=== PATIENT | female | born 1950 | race Caucasian/White ===

== ENCOUNTER 2020-08-26 13:20 | Outpatient (REF) | payer MEDICARE, SELFPAY ==
[2020-08-26 15:38] LABS: Anion Gap 13 (12-20); Blood Urea Nitrogen 24 mg/dL (9-16); Calcium 9.4 mg/dL (8.4-10.2); Carbon Dioxide 33 mmol/L (22-29); Chloride 100 mmol/L (96-108); Estimated Glomerular Filt Rate 45; Glucose Random 95 mg/dL (60-115); Potassium 4.8 mmol/l (3.3-5.1); Sodium 141 mmol/L (135-145)
[2020-08-26 15:49] LABS: B Type Natriuretic Peptide 208 pg/mL (<100)
== END 2020-08-26 13:21 | disposition home or self-care (01) ==
LOC: HO.LAB 13:20
PROVIDERS: PCP Internal Medicine; Visit Provider Internal Medicine
DX: I50.32 Chronic diastolic (congestive) heart failure (principal)
CPT/HCPCS: 80048; 83880

== ENCOUNTER → 2021-02-08 08:29 | Outpatient (BNVA) | payer MEDICARE, SELFPAY | PROVIDERS: PCP Internal Medicine; Visit Provider Internal Medicine | DX: I11.0 Hypertensive heart disease with heart failure (principal); I50.32 Chronic diastolic (congestive) heart failure; I35.0 Nonrheumatic aortic (valve) stenosis | CPT/HCPCS: 99212 ==

== ENCOUNTER → 2021-08-02 08:27 | Outpatient (REF) | payer MEDICARE, SELFPAY ==
--- NOTE | 2021-08-02 08:30 | CA_ITS ---
Transthoracic Echocardiogram Patient (Last, First, Middle): Shruthi Ch, Gender: Female Date of : 1950 Age: 71 Procedure Date: 08/02/2021 Procedure Type: Transthoracic Echocardiogram Location: OP Height: 154.94 cm Weight: 81.19 kg BSA: 1.80 m2 Heart Rate: bpm BP: 116 / 56 mmHg Chemical Operations Specialist: Referring MD: Geovany Dong MD Rn Postpartum: Clark Mc MD Symptoms: I35.0 - Nonrheumatic aortic (valve) stenosis Study Quality: Fair ECG Rhythm: Sinus Conclusions: - 1. Normal LV systolic function with impaired relaxation filling pattern 2. Moderate aortic stenosis 3. Normal RV systolic pressure 4. No gross pericardial effusion Findings Left Ventricle Normal left ventricular size, thickness, and systolic function. The visually estimated ejection fraction is between 60-65%. Spectral Doppler is indicative of an impaired relaxation filling pattern. E/E prime ratio is between 8 and 15 consistent with indeterminate filling pressures. Measured peak global endocardial longitudinal strain is-23.9%, within normal limits Right Ventricle Normal right ventricular cavity size and systolic function. Atria The left atrium is mildly dilated. The right atrium is normal in size. Aortic Valve The aortic valve was not well visualized. There is mild calcification of the aortic valve. There is mild thickening of the aortic valve. There is moderate aortic valve stenosis. The peak aortic gradient is 35 mmHg.The mean gradient is 18 mmHg. There is no aortic valve regurgitation. Mitral Valve There is mild posterior mitral leaflet thickening. There is mild mitral annular calcification. There is trace mitral valve regurgitation. There is no mitral valve stenosis. Pulmonic Valve The pulmonic valve was not well visualized. Tricuspid Valve The right ventricular systolic pressure is 26 mmHg. Normal right atrial pressure. There is no evidence of pulmonary hypertension. Great Vessels All visible segments of the aorta are normal in size. The pulmonary artery was not well visualized. Venous The inferior vena cava is normal in size and collapses greater than 50% with inspiration. Pericardium/Pleural There is no evidence of pericardial effusion. Prior Study Comparison No significant change compared to prior study. Measurements 2D Linear Measurements IVSd: 1.03 0.6-0.9/0.6-1.0 cm LVIDd: 4.39 3.9-5.3/4.2-5.9 cm LVIDd Index: 2.44 2.4-3.2/2.2-3.1 cm/m2 LVIDs: 3.11 2.0-3.6 cm LVPWd: 1.08 0.7-1.1 cm Ao Root: 2.90 2.1-3.5 cm LA Diam: 4.20 2.7-3.8/3.0-4.0 cm LAIDs Index: 2.33 1.5-2.3 cm/m2 LV Mass: 197.62 67-162/88-224 g LV Mass Index: 109.79 43-95/49-115 g/m2 LVOT Diam: 2.00 3.0+(-)1.3 cm Mitral Valve MV Pk E: 0.78 MV PK A: 0.90 MV Decel Time: 249.00 E/A: 0.90 E'Lateral: 9.90 E'Medial: 5.44 E/E' Med: 14.30 E/E' Lat: 7.90 PHT: 73.00 MVA PHT: 3.01 Decel [place]: 3.13 Aortic Valve AoV Pk Yasmany: 2.94 AoV Mn Yasmany: 1.92 AoV VTI: 0.82 AoV Pk Grad: 35.00 Aov Mn Grad: 18.00 JERAMIE Cont.VTI: 1.16 LVOT LVOT Pk Yasmany: 1.06 LVOT Mn Yasmany: 0.66 LVOT VTI: 0.30 LVOT Pk Grad: 4.00 LVOT Mn Grad: 2.00 LVOT Diam: 2.00 LVOT Area: 3.14 Diastolic Function MV Pk E: 0.78 MV Pk A: 0.90 E/A: 0.90 E'Medial: 5.44 E/E' Med: 14.30 E' Laterial: 9.90 E/E' Lat: 7.90 Tricuspid Valve TR Pk Yasmany: 2.42 TR Pk Grad: 23.00 RA Press: 3.00 RVSP: 26.00 Great Vessels Aorta Ao Root-2D: 2.90 2.0-3.7 cm Ao Asc: 3.00 2.1-3.4 cm Pulmonary Valve PV Pk Yasmany: 1.08 Peak PV Grad: 5.00 Updated in Other Vendor System with Status of Final Clark Mc MD electronically signed on 08/02/2021 4:27:00 PM with status of Final
== END ==
LOC: HO.CARD 08:27
PROVIDERS: PCP Internal Medicine; Visit Provider Internal Medicine
DX: I35.0 Nonrheumatic aortic (valve) stenosis (principal)
CPT/HCPCS: 93306

== ENCOUNTER 2021-08-16 09:37 | Outpatient (REF) | payer MEDICARE, SELFPAY ==
[2021-08-16 10:58] LABS: Anion Gap 12 (12-20); Blood Urea Nitrogen 19 mg/dL (9-16); Calcium 9.6 mg/dL (8.4-10.2); Carbon Dioxide 28 mmol/L (22-29); Chloride 106 mmol/L (96-108); Estimated Glomerular Filt Rate 51; Glucose Fasting 112 mg/dL (60-99); Potassium 5.3 mmol/L (3.3-5.1); Sodium 141 mmol/L (135-145)
[2021-08-16 11:04] LABS: B Type Natriuretic Peptide 265 pg/mL (<100)
== END 2021-08-16 09:38 | disposition home or self-care (01) ==
LOC: HO.LAB 09:37
PROVIDERS: Visit Provider Internal Medicine
DX: I50.32 Chronic diastolic (congestive) heart failure (principal)
CPT/HCPCS: 36415; 80048; 83880

== ENCOUNTER → 2021-08-17 08:11 | Outpatient (BNVA) | payer MEDICARE, SELFPAY | PROVIDERS: PCP Internal Medicine; Referring Provider Internal Medicine; Visit Provider Internal Medicine | DX: I11.0 Hypertensive heart disease with heart failure (principal); I50.32 Chronic diastolic (congestive) heart failure; I35.0 Nonrheumatic aortic (valve) stenosis; E87.5 Hyperkalemia | CPT/HCPCS: 93005; 99212 ==

== ENCOUNTER → 2022-02-03 13:32 | Outpatient (BNVA) | payer MEDICARE, SELFPAY | PROVIDERS: PCP Internal Medicine; Referring Provider Internal Medicine; Visit Provider Internal Medicine | DX: I11.0 Hypertensive heart disease with heart failure (principal); I50.32 Chronic diastolic (congestive) heart failure; I35.0 Nonrheumatic aortic (valve) stenosis | CPT/HCPCS: 99212 ==

== ENCOUNTER → 2022-03-11 08:36 | Outpatient (REF) | payer MEDICARE, SELFPAY ==
--- NOTE | ~2022-03-11 | NM_ITS ---
Lexiscan Myocardial perfusion study Indication: Diastolic congestive heart failure, assess for coronary disease and ischemia Technique: The patient was brought in for a Lexiscan perfusion study on 03/11/2022 and was injected 0.4 mg of Lexiscan intravenously. Within a minute of this injection 30 mCi of sestamibi was given intravenously. Images were obtained using the SPECT gamma camera interlaced with the gating device. Images were obtained in supine position. Resting perfusion study was performed on 03/14/2022. Patient was administered 30 mCi of sestamibi intravenously at rest. Images were then obtained in supine position. Total DLP 110mGy-cm. Images were processed with the software and compared side to side in short axis, horizontal long axis and vertical long axis views. Findings: Raw acquisition reviewed. The stress perfusion study showed no significant perfusion abnormality. Both uncorrected as well as CT attenuation corrected images were reviewed. The gated study shows normal LV systolic function with calculated LVEF of 71%. LV cavity is normal in size. The gated study shows normal wall thickening and contraction of segments. Resting study shows no significant perfusion abnormality. Gating at rest reveals normal wall motion with ejection fraction at 69%. The findings are consistent with no reversible or fixed perfusion abnormality. NM/NM cardiolite stress test Impression: 1. Myocardial perfusion imaging study shows normal myocardial perfusion. 2. Gated LVEF is 71% during stress and 69% during rest. 3. Transient ischemic dilatation not present. EKG component of the test reported separately.
--- NOTE | 2022-03-11 08:39 | CA_ITS ---
Acquisition Time: 2022-03-11 09:38:22 Total Exercise Time: 00:02:00 Test Indications: SOB Medications: SEE CHART Protocol: LEXISCAN Max HR: 080 BPM 54% of Pred: 148 BPM Max BP: 164/084 mmHG Max Work Load: 1.6 METS Pharmacological stress test with Lexiscan injection, while walking slow on treadmill, without anginal symptoms, without arrythmia, with normotensive response to injection, with nondiagnostic EKG for ischemia. Nuclear images pending. Test reviewed with Dr Dong Referred By: Geovany Dong Overread By: BIANCA LIPSCOMB
--- NOTE | 2022-03-11 08:39 | CA_ITS ---
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 The visually estimated ejection fraction is between 65-70%. - Evidence suggests grade II (moderate) diastolic dysfunction. - There is moderate aortic valve stenosis. Findings Left Ventricle Normal left ventricular cavity size. There is mildly increased left ventricular wall thickness. The left ventricular systolic function is normal. The visually estimated ejection fraction is between 65-70%. E/E prime ratio is between 8 and 15 consistent with indeterminate filling pressures. Evidence suggests grade II (moderate) diastolic dysfunction. Right Ventricle Normal right ventricular cavity size and systolic function. Atria Both atria are normal in size. Aortic Valve The aortic valve was not well visualized. There is moderate calcification of the aortic valve. There is moderate aortic valve stenosis. The mean gradient is 17 mmHg. The aortic valve area is 1.31 cm2. There is no aortic valve regurgitation. Dimensionless index 0.38. Stroke volume index 57ml/m2. Mitral Valve The mitral valve appears normal. There is trace mitral valve regurgitation. There is no mitral valve stenosis. Pulmonic Valve The pulmonic valve is likely normal. Tricuspid Valve There is mild tricuspid valve regurgitation. The pulmonary artery systolic pressure is normal. Great Vessels The aortic annulus, sinuses of valsalva, and asc aorta are normal in size. Venous The inferior vena cava is normal in size and collapses greater than 50% with inspiration. Pericardium/Pleural There is no evidence of pericardial effusion. Prior Study Comparison No significant change compared to prior study dated: 08/02/2021. Measurements 2D Linear Measurements IVSd: 1.19 0.6-0.9/0.6-1.0 cm LVIDd: 3.91 3.9-5.3/4.2-5.9 cm LVIDd Index: 2.16 2.4-3.2/2.2-3.1 cm/m2 LVIDs: 2.59 2.0-3.6 cm LVPWd: 1.24 0.7-1.1 cm LA Diam: 4.30 2.7-3.8/3.0-4.0 cm LAIDs Index: 2.38 1.5-2.3 cm/m2 LV Mass: 202.87 67-162/88-224 g LV Mass Index: 112.08 43-95/49-115 g/m2 LVOT Diam: 2.10 3.0+(-)1.3 cm 2D Systolic Function EF 4C: 70.80 >55% EF 2C: 77.30 >55% EF BiP: 74.60 >55% Mitral Valve MV Pk E: 0.87 MV PK A: 0.83 MV Decel Time: 244.00 E/A: 1.10 E'Lateral: 9.03 E'Medial: 5.98 E/E' Med: 14.50 E/E' Lat: 9.60 PHT: 71.00 MVA PHT: 3.10 Decel [place]: 3.56 Aortic Valve AoV Pk Yasmany: 2.75 AoV Mn Yasmany: 1.94 AoV VTI: 0.78 AoV Pk Grad: 30.00 Aov Mn Grad: 17.00 JERAMIE Cont.VTI: 1.31 LVOT LVOT Pk Yasmany: 1.04 LVOT Mn Yasmany: 0.67 LVOT VTI: 0.30 LVOT Pk Grad: 4.00 LVOT Mn Grad: 2.00 LVOT Diam: 2.10 LVOT Area: 3.46 Diastolic Function MV Pk E: 0.87 MV Pk A: 0.83 E/A: 1.10 E'Medial: 5.98 E/E' Med: 14.50 E' Laterial: 9.03 E/E' Lat: 9.60 Right Ventricle TAPSE (mm): 1.99 TVS' Yasmany: 11.30 Tricuspid Valve TR Pk Yasmany: 2.57 TR Pk Grad: 26.00 RA Press: 3.00 RVSP: 29.00 Great Vessels Aorta Sinus of Valsalva: 2.89 2.0-3.5 cm Ao Asc: 2.80 2.1-3.4 cm Updated in Other Vendor System with Status of Final Geovany Dong MD electronically signed on 03/12/2022 11:26:38 AM with status of Final
== END ==
LOC: HO.CARD 08:36
PROVIDERS: Visit Provider Internal Medicine
DX: I35.0 Nonrheumatic aortic (valve) stenosis (principal); I50.32 Chronic diastolic (congestive) heart failure
CPT/HCPCS: 78452; 93017; 93306; A9500; J0280; J2785

== ENCOUNTER → 2022-03-28 09:50 | Outpatient (REF) | payer MEDICARE, SELFPAY | LOC: HO.SL 09:50 | PROVIDERS: Visit Provider Internal Medicine | DX: G47.33 Obstructive sleep apnea (adult) (pediatric) (principal); I50.32 Chronic diastolic (congestive) heart failure | CPT/HCPCS: 95806 ==

== ENCOUNTER → 2022-04-25 08:14 | Outpatient (BNVA) | payer MEDICARE, SELFPAY | PROVIDERS: PCP Internal Medicine; Referring Provider Internal Medicine; Visit Provider Internal Medicine | DX: I11.0 Hypertensive heart disease with heart failure (principal); I50.32 Chronic diastolic (congestive) heart failure; I35.0 Nonrheumatic aortic (valve) stenosis | CPT/HCPCS: 99212 ==

== ENCOUNTER 2023-02-18 15:35 | Emergency (ER) | payer MEDICARE, SELFPAY ==
--- NOTE | ~2023-02-18 | XR_ITS ---
EXAMINATION: XR LUMBOSACRAL SPINE CLINICAL INFORMATION: Pain. COMPARISON: CTA chest 07/27/2019. Radiograph lumbar spine 12/16/2009. TECHNIQUE: Three views of the lumbosacral spine. FINDINGS: Increased sclerosis with equivocal mild compression deformity involving the superior endplate of L2, new compared to priors from 2018 and 2009. No evidence of traumatic subluxation. Moderate to severe intervertebral disc height loss from T11 through L2. Moderate to severe facet arthropathy at L5-S1 leading to some degree of neural foraminal encroachment and central canal stenosis. SI joints are symmetric. Scattered atherosclerotic disease of the abdominal aorta, otherwise no significant soft tissue abnormality. XR/XR lumbar spine 2-3V IMPRESSION: 1. Equivocal mild compression deformity of the superior endplate of L2, new compared to 2019. Correlation for point tenderness is recommended. 2. Moderate to severe lumbar spondylosis more significant in the lower thoracic spine and lower lumbar spine. If clinically deemed appropriate for evaluation of central canal stenosis, nerve root impingement and disc pathology, correlation with an MRI could be obtained.
--- NOTE | ~2023-02-18 | XR_ITS ---
EXAMINATION: XR HIP, LEFT CLINICAL INFORMATION: Pain. COMPARISON: None available. TECHNIQUE: Two views of the left hip. FINDINGS: No acute fractures or subluxation. 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 SI joints are symmetric. Pubic symphysis is maintained. No significant soft tissue abnormality. XR/XR hip LT w PEL1V IMPRESSION: No acute fractures or subluxation. 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
[2023-02-18 15:44] VITALS: BP 136/82; BP 154/52; PULSE 64; PULSE 68; RESP 18; TEMP 36.8; O2SAT 100; O2SAT 98; BMI 32.0
[2023-02-18 16:14] LABS: MANUAL DIFF FLAG NO
[2023-02-18 16:16] LABS: Basophils Percent Auto 0.3 % (0-2); Eosinophils Absolute Auto 0.2 X10*3/uL (0.0-0.4); Eosinophils Percent Auto 1.5 % (0-4); Hematocrit 43.8 % (37.0-47.0); Hemoglobin 14.7 g/dl (12.0-16.0); Imm Gran Abs Auto 0.03 X10*3/uL (0.00-0.03); Imm Gran Pct Auto 0.3 % (0.0-0.4); Lymphocytes Absolute Auto 2.7 X10*3/uL (1.2-4.9); Mean Corpuscular HGB Conc 33.6 g/dl (31.0-35.0); Mean Corpuscular Hemoglobin 28.3 pg (27.0-33.0); Mean Corpuscular Volume 84.2 fL (80.0-98.0); Mean Platelet Volume 7.9 fL (9.4-12.3); Monocytes Absolute Auto 0.7 X10*3/uL (0.1-1.2); Monocytes Percent Auto 7.4 % (2-11); Neutrophils Absolute Auto 6.3 x10*3/uL (2.0-8.3); Neutrophils Percent Auto 63.5 % (45-73); Platelet Count 270 X10*3/uL (160-400); Red Cell Distribution Width 13.8 % (11.0-16.0); White Blood Count 9.9 X10*3/uL (4.8-10.8)
[2023-02-18 16:34] LABS: Alanine Aminotransferase 24 U/L (0-31); Albumin Level 4.4 g/dL (3.5-5.0); Alkaline Phosphatase 136 U/L (39-117); Anion Gap 18 (12-20); Aspartate Amino Transferase 27 U/L (5-31); Bilirubin Total 1.8 mg/dL (0.0-1.0); Blood Urea Nitrogen 13 mg/dL (9-16); Calcium 9.8 mg/dL (8.4-10.2); Carbon Dioxide 24 mmol/L (22-29); Chloride 102 mmol/L (96-108); Creatinine Clr Calc Pharmacy 49.8; Estimated Glomerular Filt Rate 56; Glucose Random 116 mg/dL (60-115); Magnesium 2.3 mg/dL (1.6-2.6); Potassium 4.3 mmol/L (3.3-5.1); Sodium 140 mmol/L (135-145); Total Protein 6.9 g/dL (6.5-8.0)
[2023-02-18 16:44] VITALS: RESP 18
[2023-02-18] MEDS: Ondansetron ODT 4 MG TAB.RAPDIS TRANSLINGU (16:44)
[2023-02-18] MEDS: Morphine Sulfate 4 MG/ML CARTRIDGE IM (16:44)
--- NOTE | 2023-02-18 16:52 | ED.GENADULT ---
HPI - General Adult General Chief complaint: Back Pain/Injury Stated complaint: BACK PAIN X2 DAY,UNABLE TO AMB,NO INJ PER EMS Time Seen by Provider: 02/18/23 16:09 Source: patient, family (daughter) and old records reviewed Mode of arrival: EMS Limitations: no limitations History of Present Illness HPI narrative: 72-year-old female with past medical history significant for hypertension, congestive heart failure, hyperkalemia presents for evaluation of left lower back pain and hip pain. Patient denies any specific injury or falls. She reports that 2 days ago she initially had left lower back pain that was mild and worse with movement. Today, about 2 hours prior to arrival her pain got much more severe and she has been unable to bear weight on her left side due to the pain. She states the pain is just above her left buttocks and in her left hip that radiates down her left leg Denies any numbness, tingling She has taken ibuprofen without any significant improvement in her symptoms Denies any history of back surgeries No other complaints or concerns at this time Related Data Home Medications Medication Instructions Recorded Confirmed amlodipine 10 mg tablet 10 mg PO DAILY 02/08/21 04/25/22 atenolol 50 mg tablet 50 mg PO DAILY 02/08/21 04/25/22 atorvastatin 20 mg tablet 20 mg PO DAILY 02/08/21 04/25/22 benazepril 40 mg tablet 40 mg PO DAILY 02/08/21 04/25/22 fluoxetine 20 mg capsule 20 mg PO DAILY 02/08/21 04/25/22 gabapentin 300 mg capsule 300 mg PO BID 02/08/21 04/25/22 levothyroxine 100 mcg tablet 100 mcg PO DAILY 02/08/21 04/25/22 Previous Rx's Medication Instructions Recorded furosemide 20 mg tablet 10 mg PO QAM #30 tabs 08/18/22 Allergies Allergy/AdvReac Type Severity Reaction Status Date / Time No Known Allergies Allergy Verified 02/18/23 15:48 [No Known Allergies*] Review of Systems Constitutional: Constitutional: Reports as per HPI, Denies chills, Denies fatigue, Denies fever(s) and Denies headache(s) ENT: Denies headache(s) Cardiovascular: Cardiovascular: Denies chest pain and Denies dyspnea Respiratory: Respiratory: Denies cough and Denies dyspnea Gastrointestinal: Gastrointestinal: Denies abdominal pain, Denies constipation and Denies vomiting Genitourinary: Genitourinary: Denies dysuria Musculoskeletal: Musculoskeletal: Reports back pain and Denies tingling Neurologic: Denies headache(s), Denies focal weakness, Reports radicular pain, Denies tingling and Denies paresthesias Endocrine: Endocrine: Denies fatigue PMFSH Past Medical History Medical History Chronic diastolic (congestive) heart failure Essential hypertension Non-rheumatic aortic stenosis Surgical History History of breast biopsy History of hysterectomy Family History Family History Father Dementia Mother Hypertension Alzheimer disease Social History Social History Alcohol intake: never Patient Tobacco Use Status: Former Tobacco user Quit Date: 20+ yrs ago Use of substances other than those prescribed or required for medical reasons: No Advance Directives: No Advance Directives Information Provided: No Physical Exam ED Vital Signs: Vital Signs - 24 hr 02/18/23 15:44 02/18/23 16:44 02/18/23 19:16 Temperature 98.2 F 97.9 F Pulse Rate 68 68 Respiratory Rate 18 18 18 Blood Pressure 154/52 H 145/65 H Pulse Oximetry 98 93 Oxygen Delivery Method Room Air Room Air BMI result Body Mass Index 32.0 Const General: healthy appearing, comfortable, no acute distress, alert and awake Nutritional Appearance: well nourished Orientation/consciousness: patient oriented x3 HENMT Head: Yes normocephalic and Yes atraumatic Throat: Yes posterior oropharynx normal Eyes Eyelids: Yes eyelids normal Conjunctivae: conjunctivae normal Sclerae: sclerae normal Corneas: corneas normal Pupils: Equal, round and reactive pupils present EOM: EOMs intact bilaterally Neck Neck: Yes full ROM Resp Effort & Inspection: normal respiratory effort, able to speak in complete sentences, no audible wheezes and not labored Auscultation: clear to auscultation bilaterally Cardio Rate: regular rate Rhythm: regular rhythm GI Inspection: No distended Palpation (GI): Soft to palpation, not firm, nontender, no guarding and not rigid Auscultation: normoactive bowel sounds Back/Spine/Pelvis Other: Normal inspection to the back and spine, Tenderness in the left lumbar sacral region, tenderness to the left hip. Straight leg raise positive on the left. No palpable deformities. Skin General skin exam: no rashes or lesions noted and elasticity normal Neuro General: patient oriented x3 Cranial nerves: Yes CN's II-XII intact bilaterally, Yes Equal, round and reactive pupils present and Yes Bilaterally intact EOM present Cognition (Neuro): normal cognition Extrem Other: Moving all extremities well without any obvious deformities. The left lower extremity edema Course Reevaluation(s) Reevaluation #1: Patient states fell significantly better after receiving the morphine injection. Item the help set the patient up and see if she can ambulate and she again had severe pain radiating down her left leg. Patient's x-ray shows moderate to severe spondylosis and ane age-indeterminate compression deformity of L2. On further history, the patient admits that she did have a fall about 1 month ago which was likely the cause of the compression deformity. This was discussed with the patient and daughter at bedside. The patient's symptoms are most consistent with lumbar radiculopathy. However given that she cannot ambulate due to her pain, the patient will stay in the hospital tonight for case management and physical therapy evaluation in the morning. Time: 17:44 Medications Administered Discontinued Medications Generic Name Dose Route Start Last Admin Trade Name Pedroq PRN Reason Stop Dose Admin Dexamethasone 4 mg 02/18/23 17:43 02/18/23 17:50 Dexamethasone 4 Mg Tablet PO 02/18/23 17:44 4 mg ONCE ONE Administration Morphine Sulfate 4 mg 02/18/23 16:36 02/18/23 16:44 Morphine Sulfate 4 Mg/Ml Cartridge IM 02/18/23 16:37 4 mg ONCE ONE Administration Protocol Ondansetron HCl 4 mg 02/18/23 16:36 02/18/23 16:44 Ondansetron Odt 4 Mg Tab.Rapdis TRANSLINGU 02/18/23 16:37 4 mg ONCE ONE Administration Medical Decision Making Medical Decision Making MDM Narrative: 72-year-old female presents for evaluation of left lower back and hip pain. By exam her symptoms are most consistent with radiculopathy/sciatica. There are no warning signs or symptoms of cauda equina syndrome. Will check basic labs and a UA. Will get an x-ray of the left hip and L-spine. Will treat the patient's pain with morphine in the meantime. And re-evaluate. The patient has been staying with her daughter in the meantime. If the remainder of the workup is negative, we will discuss options of discharge versus consideration for SNF placement. Differential Diagnosis Sciatica Radiculopathy Back pain Hip pain Avascular necrosis Osteoarthritis Vertebral fracture Cauda equina syndrome most likely Lab Data 02/18/23 16:06 02/18/23 16:06 Labs: Lab Results 02/18/23 02/18/23 Range/Units 16:06 16:06 WBC 9.9 (4.8-10.8) X10*3/uL RBC 5.20 (4.20-5.50) X10*6/uL Hgb 14.7 (12.0-16.0) g/dl Hct 43.8 (37.0-47.0) % MCV 84.2 (80.0-98.0) fL MCH 28.3 (27.0-33.0) pg MCHC 33.6 (31.0-35.0) g/dl RDW 13.8 (11.0-16.0) % Plt Count 270 (160-400) X10*3/uL MPV 7.9 L (9.4-12.3) fL Immature Gran % (Auto) 0.3 (0.0-0.4) % Neut % (Auto) 63.5 (45-73) % Lymph % (Auto) 27.0 (20-40) % [place] % (Auto) 7.4 (2-11) % Eos % (Auto) 1.5 (0-4) % Baso % (Auto) 0.3 (0-2) % Lymph # (Auto) 2.7 (1.2-4.9) X10*3/uL [place] # (Auto) 0.7 (0.1-1.2) X10*3/uL Eos # (Auto) 0.2 (0.0-0.4) X10*3/uL Baso # (Auto) 0.0 (0.0-0.2) X10*3/uL Abs Immat Gran (auto) 0.03 (0.00-0.03) X10*3/uL Absolute Neuts (auto) 6.3 (2.0-8.3) x10*3/uL Absolute Nucleated RBC 0.000 (0.0-0.012) X10*3/uL Nucleated RBC % (auto) 0.0 (0.0-0.2) /100WBC Sodium 140 (135-145) mmol/L Potassium 4.3 (3.3-5.1) mmol/L Chloride 102 (96-108) mmol/L Carbon Dioxide 24 (22-29) mmol/L Anion Gap 18 (12-20) BUN 13 (9-16) mg/dL Creatinine 0.98 (0.5-1.4) mg/dL Estim Creat Clear Calc 49.8 Estimated GFR 56 Random Glucose 116 H (60-115) mg/dL Calcium 9.8 (8.4-10.2) mg/dL Magnesium 2.3 (1.6-2.6) mg/dL Total Bilirubin 1.8 H (0.0-1.0) mg/dL AST 27 (5-31) U/L ALT 24 (0-31) U/L Alkaline Phosphatase 136 H (39-117) U/L Total Protein 6.9 (6.5-8.0) g/dL Albumin 4.4 (3.5-5.0) g/dL Discharge Plan Discharge Clinical Impression: Acute lumbar radiculopathy Patient Disposition: Still a Patient Prescriptions: No Action furosemide 20 mg tablet 10 mg PO QAM Qty: 30 5RF fluoxetine 20 mg capsule 20 mg PO DAILY benazepril 40 mg tablet 40 mg PO DAILY atorvastatin 20 mg tablet 20 mg PO DAILY levothyroxine 100 mcg tablet 100 mcg PO DAILY amlodipine 10 mg tablet 10 mg PO DAILY atenolol 50 mg tablet 50 mg PO DAILY gabapentin 300 mg capsule 300 mg PO BID
[2023-02-18] MEDS: dexAMETHasone 4 MG TABLET PO (17:50)
[2023-02-18 19:16] VITALS: BP 145/65; PULSE 68; RESP 18; TEMP 36.6; O2SAT 93
[2023-02-19 00:14] VITALS: BP 160/63; PULSE 74; RESP 18; TEMP 36.7; O2SAT 94
[2023-02-19] MEDS: oxyCODONE HCl Immed Release 5 MG TABLET PO ×4 (00:39→20:12)
[2023-02-19 01:56] LABS: Appearance Urine Clear; Color Urine Yellow; Glucose Urine UA Negative (Negative); Leukocyte Esterase Urine Small (1+) (Negative); Nitrite Urine Negative (Negative); Specific Gravity - Urine 1.025 (1.005-1.025); UMIC TRIGGER UACC YES; Urine Blood Negative (Negative); Urine Ketones Trace mg/dL (Negative); Urine Protein 300 (3+) mg/dL (Neg-Trace)
[2023-02-19 02:13] LABS: Bacteria Urine 1+ (None Seen); Hyaline Casts Urine 0-2 /LPF (0-2); UACC Culture Trigger YES; WBC Urine 21-50 /HPF (0-5)
[2023-02-19 06:00] VITALS: BP 133/59; PULSE 62; RESP 18; TEMP 36.9; O2SAT 94
--- NOTE | 2023-02-19 08:39 | PC.NURSE ---
PT A&O. MEDICATED FOR PAIN. MEDS REVIEWED BY PHARMACIST. APPETITE IS GOOD.
--- NOTE | 2023-02-19 08:41 | PHA.MEDREC ---
Addendum entered by [place] Castellon RPh 02/19/23 09:28: GABAPENTIN AND ALLOPURINOL TAKEN DIFFERENT THAT RX INSTRUCTIONS GILDA Original Note: Pharmacy Consult ? Medication Reconciliation Pharmacy has completed the medication reconciliation. Spoke to patient and patient's daughter Betty to confirm meds.
--- NOTE | 2023-02-19 11:33 | MHC.CM.PN ---
Female 72 States that she can not walk. Per ED documentation Sciatica suspected. A PT eval has been ordered, and is pending. The evaluation will be performed tomorrow; because therapy does not cover on Sundays.
[2023-02-19] MEDS: Lidocaine 4 % Patch ADH..PATCH 1 PATCH TRANSDERMA (12:26)
[2023-02-19] MEDS: Furosemide 20 MG TABLET 10 MG PO (12:28)
[2023-02-19] MEDS: Ketorolac Tromethamine 30 MG/ML VIAL IM (12:30)
[2023-02-19 14:00] VITALS: BP 152/68; PULSE 60; RESP 19; TEMP 36.6; O2SAT 97
--- NOTE | 2023-02-19 14:36 | PC.NURSE ---
complete bed bath and bed change done
--- NOTE | 2023-02-19 16:52 | MHC.EDTECH ---
pt rang to use bed side commode ,void then back to bed ,pt was asked if she needed anything to eat or drink ,but said no ,just remote .
--- NOTE | 2023-02-19 19:00 | MHC.EDTECH ---
pt ate 25 % of meal drank 240 ml fluids ,pt son was here for a visit .
[2023-02-19] MEDS: Gabapentin 300 MG CAPSULE 600 MG PO (20:11)
[2023-02-19] MEDS: lisinopriL 40 MG TABLET PO (20:12)
[2023-02-19] MEDS: Atorvastatin Calcium 20 MG TABLET PO (20:12)
[2023-02-19] MEDS: amLODIPine Besylate 10 MG TABLET PO (20:12)
[2023-02-19] MEDS: FLUoxetine HCl 20 MG CAPSULE PO (20:12)
[2023-02-19] MEDS: allopurinoL 100 MG TABLET 200 MG PO (20:12)
[2023-02-19] MEDS: atenoloL 50 MG TABLET PO (20:13)
[2023-02-19] MEDS: Acetaminophen 325 MG TABLET 650 MG PO (20:13)
[2023-02-19 21:22] VITALS: BP 163/50; PULSE 66; RESP 16; TEMP 36.8; O2SAT 98
--- NOTE | 2023-02-19 21:25 | MHC.EDTECH ---
pt vitals sign taken ,pt was assisted unto bedside commode ,void lg amount of urine ,back to bed fresh pitcher water given .
[2023-02-20] MEDS: NaPROXEN 500 MG TABLET PO ×2 (01:29→13:58)
[2023-02-20 07:56] VITALS: BP 146/73; PULSE 63; RESP 18; TEMP 36.6; O2SAT 94
[2023-02-20] MEDS: Acetaminophen 325 MG TABLET 650 MG PO (07:56)
[2023-02-20] MEDS: Lidocaine 4 % Patch ADH..PATCH 1 PATCH TRANSDERMA (07:56)
[2023-02-20] MEDS: Furosemide 20 MG TABLET 10 MG PO (07:56)
--- NOTE | 2023-02-20 08:08 | PC.NURSE ---
patient alert, oriented x4. given routine morning meds. c/o 5 out 10 pain to the left hip with movement. lidocaine patch placed. will CTM for pain relief. call vasquez placed within reach.
--- NOTE | 2023-02-20 08:21 | PC.NURSE ---
PT at the bedside
[2023-02-20] MEDS: oxyCODONE HCl Immed Release 5 MG TABLET PO (08:48)
--- NOTE | 2023-02-20 09:07 | MHC.CM.ED ---
Addendum entered by Taryn Junior 02/20/23 15:35: PT WILL DC TO [facility] AT 1630 HOURS VIA [facility] WAS UNABLE TO PROVIDE TRANSPORT BEFORE 1830 RUN # [id number] MESSAGE LEFT FOR PTS SON JARAD ([phone]) INFORMING HIM OF DC TIME Original Note: CM MET WITH PT AND HER SON AT BEDSIDE PT REPORTS ONGOING PAIN IMPEDING HER AMBULATION SHE IS INTERESTED IN GOING TO [facility] FROM HERE SHE REQUESTS REFERRALS TO THE [place] [facility] SHE IS AWARE THEY WILL BE MADE TO [facility] REFERRALS OUT AWAITING PT EVAL
--- NOTE | 2023-02-20 09:23 | MHC.EDTECH ---
Emptied patients commode and replaced liner. Stephie Lloyd
[2023-02-20 13:02] LABS: Glucose, Whole Blood 112 mg/dL (60-115)
[2023-02-20 13:33] LABS: Glucose, Whole Blood 111 mg/dL (60-115)
[2023-02-20 15:52] VITALS: BP 148/63; PULSE 55; RESP 16; TEMP 36.6; O2SAT 94
[2023-02-20 16:06] LABS: COVID-19 Test Negative (Negative)
[2023-02-20 16:07] LABS: IDNOW Serial# 08D9AD1C
== END 2023-02-20 17:18 | disposition skilled nursing facility (03) ==
PROVIDERS: Nurse Practitioner Family; Physician Assistant Medical; Emergency Provider Emergency Medicine; PCP Internal Medicine
DX: M54.16 Radiculopathy, lumbar region (principal); M54.50 Low back pain, unspecified; N39.0 Urinary tract infection, site not specified; R60.0 Localized edema; Z20.822 Contact with and (suspected) exposure to COVID-19; I11.0 Hypertensive heart disease with heart failure; I50.9 Heart failure, unspecified; Z87.891 Personal history of nicotine dependence; Z79.02 Long term (current) use of antithrombotics/antiplatelets; Z79.899 Other long term (current) drug therapy
CPT/HCPCS: 36415; 72100; 73502; 80053; 81001; 82947; 83735; 85025; 87086; 87635; 96372; 97162; 99285; J1885; J2270; J8540

== ENCOUNTER → 2023-04-14 08:42 | Outpatient (REF) | payer MEDICARE, SELFPAY ==
--- NOTE | 2023-04-14 08:44 | CA_ITS ---
Transthoracic Echocardiogram Patient (Last, First, Middle): Shruthi Ch, Gender: Female Date of : 1950 Age: 73 Procedure Date: 04/14/2023 Procedure Type: Transthoracic Echocardiogram Location: OP Height: 154.94 cm Weight: 83.01 kg BSA: 1.82 m2 Heart Rate: 49 bpm BP: 134 / 60 mmHg Board Member: SB Referring MD: Geovany Dong MD Seedling Sorter: Clark Mc MD Symptoms: I35.0 - Nonrheumatic aortic (valve) stenosis Study Quality: Adequate ECG Rhythm: Bradycardia Conclusions: - 1. Normal LV systolic function with pseudonormal filling pattern 2. Mild aortic stenosis with measured valve area 1.64 centimeter sq with mean gradient of 16 mmHg 3. Mild mitral regurgitation 4. Normal RV systolic pressure 5. No gross pericardial effusion Findings Left Ventricle Normal left ventricular size, thickness, and systolic function. The visually estimated ejection fraction is between 60-65%. Spectral Doppler is indicative of a pseudonormal filling pattern. Elevated left ventricular end diastolic pressure. Right Ventricle Normal right ventricular cavity size and systolic function. Atria The left atrium is likely dilated. There is lipomatous hypertrophy of the interatrial septum. There is no evidence of interatrial shunt. The right atrium is normal in size. Aortic Valve There is mild calcification of the aortic valve. There is mild aortic valve stenosis. The mean gradient is 16 mmHg. The aortic valve area is 1.64 cm2. There is no aortic valve regurgitation. Mitral Valve There is mild anterior and posterior mitral leaflet thickening. There is mild mitral annular calcification. There is mild mitral valve regurgitation. There is no mitral valve stenosis. Pulmonic Valve The pulmonic valve was not well visualized. Tricuspid Valve Likely normal tricuspid valve structure and function. There is mild tricuspid valve regurgitation. The right ventricular systolic pressure is normal. The right ventricular systolic pressure is 22 mmHg. Normal right atrial pressure. Mild pulmonary hypertension is present. Great Vessels All visible segments of the aorta are normal in size. The pulmonary artery was not well visualized. Venous The inferior vena cava is normal in size and collapses greater than 50% with inspiration. Pericardium/Pleural There is no evidence of pericardial effusion. Prior Study Comparison Changes noted compared to prior study dated: 03/11/2022. Aortic stenosis is was measured to be in the mild range on this study. Could be underestimated Measurements 2D Linear Measurements IVSd: 1.13 0.6-0.9/0.6-1.0 cm LVIDd: 4.02 3.9-5.3/4.2-5.9 cm LVIDd Index: 2.21 2.4-3.2/2.2-3.1 cm/m2 LVIDs: 2.91 2.0-3.6 cm LVPWd: 1.01 0.7-1.1 cm LA Diam: 4.30 2.7-3.8/3.0-4.0 cm LAIDs Index: 2.36 1.5-2.3 cm/m2 LV Mass: 175.53 67-162/88-224 g LV Mass Index: 96.45 43-95/49-115 g/m2 LVOT Diam: 2.10 3.0+(-)1.3 cm 2D Systolic Function EF 2C: 72.20 >55% Mitral Valve MV Pk E: 0.95 MV PK A: 0.81 MV Decel Time: 233.00 E/A: 1.20 E'Lateral: 7.65 E'Medial: 5.03 E/E' Med: 18.90 E/E' Lat: 12.40 PHT: 68.00 MVA PHT: 3.24 Decel Kane: 4.08 Aortic Valve AoV Pk Yasmany: 2.67 AoV Mn Yasmany: 1.88 AoV VTI: 0.65 AoV Pk Grad: 29.00 Aov Mn Grad: 16.00 JERAMIE Cont.VTI: 1.64 LVOT LVOT Pk Yasmany: 1.07 LVOT Mn Yasmany: 0.81 LVOT VTI: 0.31 LVOT Pk Grad: 5.00 LVOT Mn Grad: 3.00 LVOT Diam: 2.10 LVOT Area: 3.46 Diastolic Function MV Pk E: 0.95 MV Pk A: 0.81 E/A: 1.20 E'Medial: 5.03 E/E' Med: 18.90 E' Laterial: 7.65 E/E' Lat: 12.40 Right Ventricle TAPSE (mm): 17.90 TVS' Yasmany: 9.10 Tricuspid Valve TR Pk Yasmany: 2.18 TR Pk Grad: 19.00 RA Press: 3.00 RVSP: 22.00 Great Vessels Aorta Sinus of Valsalva: 2.90 2.0-3.5 cm Ao Asc: 3.10 2.1-3.4 cm Pulmonary Veins Pulm Vein S/D 1.20 Pulmonary Valve PV Pk Yasmany: 0.98 Peak PV Grad: 4.00 Updated in Other Vendor System with Status of Final Clark Mc MD electronically signed on 04/17/2023 10:19:13 AM with status of Final
== END ==
LOC: HO.CARD 08:42
PROVIDERS: PCP Internal Medicine; Visit Provider Internal Medicine
DX: I35.0 Nonrheumatic aortic (valve) stenosis (principal)
CPT/HCPCS: 93306

== ENCOUNTER 2023-06-22 11:05 | Outpatient (AMB) | payer MEDICARE, SELFPAY ==
--- NOTE | 2023-06-22 11:08 | MHC.OFFVIS ---
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: No Accompanied by: Nephew or Niece Allergies No Known Allergies [No Known Allergies*] Allergy (Verified 06/22/23 11:12) Medication List - Last Reconciled 06/22/23 by Geovany Dong MD acetaminophen (Tylenol) 650 mg PO Q6H PRN allopurinol 200 mg PO BEDTIME amlodipine 10 mg PO BEDTIME atenolol 50 mg PO BEDTIME atorvastatin 20 mg PO BEDTIME benazepril 40 mg PO BEDTIME ergocalciferol (vitamin D2) 1,250 mcg PO TURNER@0900 fluoxetine 20 mg PO BEDTIME fluticasone propionate 50 mcg/actuation 1 spray intranasal DAILY PRN furosemide 10 mg PO DAILY gabapentin 600 mg PO BEDTIME levothyroxine 200 mcg PO TURNER@0600 levothyroxine 100 mcg PO MOTUWETHFRSA@0600 HPI HPI Comments History of Present Illness Details Kaylee returns for follow-up. She carries a diagnosis of chronic diastolic heart failure and she also has aortic stenosis. Overall feels okay. Shortness of breath episodes are infrequent. No angina. Otherwise, seems to be getting along okay. [facility] Medical History Chronic diastolic (congestive) heart failure Essential hypertension Non-rheumatic aortic stenosis Surgical History History of breast biopsy History of hysterectomy Family History Father Dementia Mother Hypertension Alzheimer disease Social History Alcohol intake: never Patient Tobacco Use Status: Former Tobacco user Quit Date: 20+ yrs ago Review of Systems Const Denies weakness ENT Denies dizziness Card Denies chest pain, Denies chest pain with activity, Denies syncope, Denies rapid heart rate, Denies pedal edema, Denies edema, Denies leg edema, Denies lightheadedness, Denies palpitations, Denies dyspnea, Denies dyspnea on exertion and Denies orthopnea Resp Denies cough, Denies dyspnea and Denies dyspnea on exertion GI Denies hematochezia and Denies change in stool character Musc Denies abnormal gait, Denies muscle cramps, Denies muscle weakness, Denies numbness, Denies radiating pain into limb and Denies tingling Neuro Denies abnormal gait, Denies dizziness, Denies syncope, Denies numbness, Denies tingling and Denies weakness Endo Denies palpitations Physical Exam Vital Signs: Last Vital Signs Pulse 53 06/22/23 11:10 BP 136/56 L 06/22/23 11:10 Const General: comfortable and no acute distress Orientation/consciousness: patient oriented x3 HEENT Other: Unremarkable Head: Yes normal to inspection Neck Neck: Yes normal visual inspection Chest Chest palpation & inspection: normal inspection of the chest Resp Auscultation: clear to auscultation bilaterally Cardio Palpation: normal PMI Heart sounds: S1 normal heart sound present, S2 normal heart sound present, no gallops, Murmur heart sound present systolic II/ and at the right sternal border and no rubs GI Palpation (GI): Soft to palpation Back/Spine/Pelvis Other: unremarkable Skin General skin exam: no rashes or lesions noted Neuro General: patient oriented x3 Extrem General: Yes normal to inspection Psych Mental Status: mental status grossly normal Assessment & Plan Assessment & Plan (1) Chronic diastolic (congestive) heart failure: Code(s): I50.32 - Chronic diastolic (congestive) heart failure Plan: Echocardiogram with pseudonormal filling pattern and elevated LVEDP. Clinically, not much volume overload. Symptoms are at baseline. Continue diuretics. Last creatinine is 0.98. (2) Non-rheumatic aortic stenosis: Code(s): I35.0 - Nonrheumatic aortic (valve) stenosis Plan: Echocardiogram was suggestive of mild aortic stenosis. Mean gradient across aortic valve was 16 mm Hg. Calculated valve area of 1.6 sq cm. Can be monitored. (3) Essential hypertension: Code(s): I10 - Essential (primary) hypertension Plan: Borderline blood pressures. Recommend home blood pressure monitoring and we discussed about this today. She is on a combination of atenolol, amlodipine, benazepril. No changes made. She already has bradycardia and hence cannot go up on the beta-blockers. There is also history of hyperkalemia. Plan Discussed with niece who came for appointment. 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 Form signed. Medications: Discontinued furosemide 10 mg (1/2 x 20 mg) PO QAM 30 tabs 5RF Coding Level of Care Code Est Pt Level 4 (66073) Diagnoses Chronic diastolic (congestive) heart failure I50.32 Non-rheumatic aortic stenosis I35.0 Essential hypertension I10
[2023-06-22 11:10] VITALS: BP 136/56; PULSE 53
== END 2023-06-22 12:53 | disposition home or self-care (01) ==
PROVIDERS: PCP Internal Medicine; Referring Provider Internal Medicine; Visit Provider Internal Medicine
DX: I50.32 Chronic diastolic (congestive) heart failure (principal); I35.0 Nonrheumatic aortic (valve) stenosis; I10 Essential (primary) hypertension
CPT/HCPCS: 99214

== ENCOUNTER → 2023-06-22 11:05 | Outpatient (BNVA) | payer MEDICARE, SELFPAY | PROVIDERS: PCP Internal Medicine; Referring Provider Internal Medicine; Visit Provider Internal Medicine | DX: I11.0 Hypertensive heart disease with heart failure (principal); I50.32 Chronic diastolic (congestive) heart failure; I35.0 Nonrheumatic aortic (valve) stenosis; Z87.891 Personal history of nicotine dependence | CPT/HCPCS: 99212 ==

== ENCOUNTER 2023-09-13 09:02 | Outpatient (AMB) | payer MEDICARE, SELFPAY ==
--- NOTE | 2023-09-13 09:05 | A.OFFVIS_ITS ---
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 Patient reports that she has had this pain since about January of this year. She reports a fracture of the spine in february, ED note reports an agre related compression deformity. She explains that her pain is felt of the left glute, and radiates a burning pain down the leg. Pain with reaching and bending. Pain is effecting her ability to sleep and sit for long periods of time. Has done physical therapy with little to no relief. Allergies No Known Allergies [No Known Allergies*] Allergy (Verified 06/22/23 11:12) HPI HPI Comments History of Present Illness Details Here with daughter who helped with translation. In January, went to bathroom, had sudden sharp pain severe, had to call ambulance. Admitted here in [facility]. Remembers that several months before that she had fallen but was not seen before that. Pain affects sleep, wakes her up at night. Certain movements and walking or even prolonged sitting worsens pain. Feels the heat on left lower leg, pain in left thigh and points to left lower back. Denies bowel/bladder incontinence. Given prednisone during hospitalization. Chronic gabapentin for restless leg? She ended in SNF after hospitalization. 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 Was told to have arthritis. Had injection more than 10 years ago. Does not recall any recent MRI. Overall better compared to sharp pain last January. More functional. Treatment done so far: Prednisone therapy - 7 weeks, they went to the house, helped a bit [facility] Medical History (Updated 09/13/23 @ 09:41 by Patty Novoa MD) Vertebral compression fracture Essential hypertension Non-rheumatic aortic stenosis Chronic diastolic (congestive) heart failure Surgical History History of breast biopsy History of hysterectomy Family History Father Dementia Mother Hypertension Alzheimer disease Social History Alcohol intake: never Patient Tobacco Use Status: Former Tobacco user Quit Date: 20+ yrs ago Review of Systems Const All systems reviewed & are unremarkable except as noted in HPI and below Physical Exam Vital Signs: BMI result Body Mass Index 35.2 Constitutional: Patient appears to be in no acute distress, well nourished and well developed. Patient was appropriately conversant and oriented. Good historian. MSK: No specific abnormalities found on inspection of the spine and all extremities. No pain with palpation over the lumbar area. No pain point spinous process tenderness. No SI joint tenderness. No GT tenderness. Lumbar ROM was full. Bilateral hip, knee and ankle ROM WNL. No ligamentous laxity or crepitance. No increased effusion. Difficulty getting up on the bed. Strength is 5/5 in all muscle groups tested. No increased tone noted. No footdrop. Neurological: Neurologic examination of the upper and lower extremities was nonfocal with intact sensation, muscle stretch reflexes and without focal motor deficits . Buenrostro?s negative bilaterally. Babinski was down going bilaterally. Clonus was negative. Gait is non-antalgic without loss of balance. Results Reviewed Results Reviewed: I independently reviewed the results of the following: T12 mild compression, disc space narrowing T11-12 and T12-L1 Ordering Physician: Azeem Brooke Date of Service: 02/18/23 Procedure(s): XR lumbar spine 2-3V Accession Number(s): [id number] cc: Azeem Brooke ~ EXAMINATION: XR LUMBOSACRAL SPINE CLINICAL INFORMATION: Pain. COMPARISON: CTA chest 07/27/2019. Radiograph lumbar spine 12/16/2009. TECHNIQUE: Three views of the lumbosacral spine. FINDINGS: Increased sclerosis with equivocal mild compression deformity involving the superior endplate of L2, new compared to priors from 2018 and 2009. No evidence of traumatic subluxation. Moderate to severe intervertebral disc height loss from T11 through L2. Moderate to severe facet arthropathy at L5-S1 leading to some degree of neural foraminal encroachment and central canal stenosis. SI joints are symmetric. Scattered atherosclerotic disease of the abdominal aorta, otherwise no significant soft tissue abnormality. XR/XR lumbar spine 2-3V IMPRESSION: 1. Equivocal mild compression deformity of the superior endplate of L2, new compared to 2019. Correlation for point tenderness is recommended. 2. Moderate to severe lumbar spondylosis more significant in the lower thoracic spine and lower lumbar spine. If clinically deemed appropriate for evaluation of central canal stenosis, nerve root impingement and disc pathology, correlation with an MRI could be obtained. I reviewed records from the following: [facility] Assessment & Plan Assessment & Plan (1) Lumbar radiculopathy: Code(s): M54.16 - Radiculopathy, lumbar region (2) Vertebral compression fracture: Code(s): M48.50XA - Collapsed vertebra, not elsewhere classified, site unspecified, initial encounter for fracture Qualifiers: Encounter type: initial encounter Fracture of vertebra location: thoracic Thoracic vertebra fracture level: T12 Qualified Code(s): S22.080A - Wedge compression fracture of T11-T12 vertebra, initial encounter for closed fracture Plan I explained to patient and daughter the difference between fracture pain vs nerve compression pain. I suspect that last January, she had fracture pain. She had fallen a few months ago and the pain at that time was severe. She no longer has that severe pain anymore. No pin point tenderness over spinous processes. However she does have signs/symptoms for lumbar radiculitis or nerve compression, radiating to left leg and calf. We also looked at images of xray together. There is mild compression of T12. But there is also disc space narrowing T11-12 and T12-L1. Patient had undergone adequate conservative management including PT without improvement of condition. It would be reasonable to obtain further imaging such as MRI. An MRI would help rule out any serious condition, guide treatment and assess prognosis for recovery. Specifically ruling out acute vertebral fracture that may need kyphoplasty versus nerve compression or significant spinal stenosis. Assessment and plan discussed with patient, and patient was agreeable. All questions were answered thoroughly. We will call them after MRI. Patty Novoa MD, CINDI Board Certified, [place] [employer] and Rehabilitation (ABPMR) Board Certified, [place] Board [employer] Electrodiagnostic [employer] (ABEM) Orders: Orders MR lumbar spine wo con Today M48.50XA - Collapsed vertebra, not elsewhere classified, site unspecified, initial encounter for fracture, M54.16 - Radiculopathy, lumbar region Coding Level of Care Code New Pt Level 4 (99129) Diagnoses Lumbar radiculopathy M54.16 Compression fracture of T12 vertebra, initial encounter S22.080A Encounter type: initial encounter Fracture of vertebra location: thoracic Thoracic vertebra fracture level: T12
[2023-09-13 09:07] VITALS: BMI 35.2
== END 2023-09-13 09:44 | disposition home or self-care (01) ==
PROVIDERS: PCP Internal Medicine; Visit Provider Physical Medicine & Rehabilitation
DX: M54.16 Radiculopathy, lumbar region (principal); S22.080A Wedge compression fracture of T11-T12 vertebra, initial encounter for closed fracture
CPT/HCPCS: 99204

== ENCOUNTER → 2023-09-13 09:02 | Outpatient (BNVA) | payer MEDICARE, SELFPAY | PROVIDERS: PCP Internal Medicine; Visit Provider Physical Medicine & Rehabilitation | DX: M54.16 Radiculopathy, lumbar region (principal); S22.080A Wedge compression fracture of T11-T12 vertebra, initial encounter for closed fracture | CPT/HCPCS: 99202 ==

== ENCOUNTER 2023-10-16 18:42 | Outpatient (REF) | payer MEDICARE, SELFPAY ==
--- NOTE | ~2023-10-16 | MR_ITS ---
EXAMINATION: MR LUMBAR SPINE WITHOUT CONTRAST CLINICAL INFORMATION: T12 compression fracture. COMPARISON: Lumbar radiographs 02/18/2023 TECHNIQUE: MRI of the lumbar spine was obtained using routine sequences without the administration of intravenous contrast. FINDINGS: This examination assumes the presence of 5 lumbar type vertebral bodies. For the purposes of this examination, the L5-S1 intervertebral disc space is visualized on axial series 5 image 30. The normal lumbar lordosis is preserved. Retrolisthesis of L1-L2. Lumbar vertebral body heights are maintained. No evidence of acute compression deformity. Diffusely heterogeneous background marrow signal may reflect underlying osteoporosis. There is an intraosseous hemangioma the S2 vertebral body. Additional partially evaluated lesion along the right aspect of S3 may represent a large atypical intraosseous hemangioma but is indeterminate. The conus medullaris is normal in signal intensity and terminates at the level of L1-L2. T10-T11: Only visualized on sagittal sequences. Mild to moderate right neural foraminal stenosis. T11-T12: Disc bulge indents the ventral thecal sac with mild canal stenosis. The neural foramen remain patent. T12-L1: Diffuse disc bulge with extension into the bilateral neural foramen. Facet arthropathy with ligamentum flavum redundancy. Mild to moderate spinal canal stenosis with narrowing of the lateral recesses. There is moderate to severe right neural foraminal stenosis with abutment of the exiting nerve root. Severe left neural foraminal stenosis with exiting nerve root impingement. L1-L2: Disc bulge with small central disc extrusion with inferior migration. Facet arthropathy with ligamentum flavum redundancy. There is mild to moderate canal stenosis with narrowing of the lateral recesses. Moderate narrowing of the neural foramen. L2-L3: Disc bulge and facet arthropathy with ligamentum flavum redundancy. Mild to moderate canal stenosis with narrowing of the lateral recesses. There is moderate narrowing of the neural foramen with probable exiting nerve root impingement far lateral spaces. L3-L4: Trace disc bulge. Facet arthropathy with ligamentum flavum redundancy. The spinal canal is patent. Prominent epidural fat. The neural foramen are patent. L4-L5: Disc bulge with left foraminal/far lateral disc protrusion. Facet arthropathy with ligamentum flavum redundancy. The spinal canal is patent. Mild to moderate right neural foraminal stenosis. There is moderate left neural foraminal stenosis with exiting nerve root impingement. L5-S1: Left greater than right facet arthropathy with ligamentum flavum redundancy. The spinal canal is not significantly narrowed. There is moderate left greater than right neural foraminal stenosis with exiting nerve root abutment secondary to facet arthropathy. Left adrenal gland lesion measuring up to 2.5 cm. T2 hyperintense foci in the bilateral kidneys are too small to fully characterize. MR/MR lumbar spine wo con IMPRESSION: No acute compression deformity. Lumbar vertebral body heights are maintained. Mild to moderate multilevel spinal canal stenose as described above. Multilevel neural foraminal stenoses as described above with advanced bilateral neural foraminal narrowing at T12-L1 with exiting nerve root impingement. Partially visualized T2 hyperintense lesion along the right aspect of S3 is indeterminate. This may represent an atypical intraosseous hemangioma but is incompletely characterized on this examination. Redemonstrated left adrenal mass measuring up to 2.5 cm. Correlation with dedicated adrenal protocol CT is recommended if not already performed.
== END 2023-10-16 18:43 | disposition home or self-care (01) ==
LOC: HO.MRI 18:42
PROVIDERS: PCP Internal Medicine; Visit Provider Physical Medicine & Rehabilitation
DX: M48.56XA Collapsed vertebra, not elsewhere classified, lumbar region, initial encounter for fracture (principal); M54.16 Radiculopathy, lumbar region
CPT/HCPCS: 72148

== ENCOUNTER 2023-12-05 06:09 | Outpatient (REF) | payer MEDICARE, SELFPAY ==
--- NOTE | ~2023-12-05 | FL_ITS ---
EXAMINATION: XR FLUOROSCOPY WITH IMAGES CLINICAL INFORMATION: Radiculopathy, lumbar. COMPARISON: None available. TECHNIQUE: Fluoroscopy Supervised By: Tracy Alfaro APRN. Fluoroscopy Time: 0.1 minutes. Cumulative Dose: 1.65 mGy. DAP: 0.0288 mGym2. Images: 2. FINDINGS: A needle is seen overlying the lower lumbar spine with contrast seen in the epidural space. FL/FL guidance in treatment room IMPRESSION: Fluoroscopy was provided for a lumbar epidural injection.
== END 2023-12-05 06:10 | disposition home or self-care (01) ==
LOC: CF 06:09
PROVIDERS: Visit Provider Anesthesiology
DX: M54.16 Radiculopathy, lumbar region (principal)
CPT/HCPCS: 62323; J3301; Q9967

== ENCOUNTER 2023-12-05 08:05 | Outpatient (AMB) | payer MEDICARE, SELFPAY ==
--- NOTE | 2023-12-05 08:18 | MHC.OFFVIS ---
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 Allergies No Known Allergies [No Known Allergies*] Allergy (Verified 12/05/23 09:57) [facility] Medical History (Updated 09/13/23 @ 09:41 by Patty Novoa MD) Vertebral compression fracture Essential hypertension Non-rheumatic aortic stenosis Chronic diastolic (congestive) heart failure Surgical History History of breast biopsy History of hysterectomy Family History Father Dementia Mother Hypertension Alzheimer disease Social History Alcohol intake: never Patient Tobacco Use Status: Former Tobacco user Quit Date: 20+ yrs ago Physical Exam Vital Signs: Last Vital Signs Pulse 58 12/05/23 08:20 Resp 14 12/05/23 08:20 BP 126/62 12/05/23 08:20 Pulse Ox 97 12/05/23 08:20 Oxygen Delivery Method Room Air 12/05/23 08:20 BMI result Body Mass Index 35.2 Assessment & Plan Assessment & Plan (1) Lumbar radiculopathy: Code(s): M54.16 - Radiculopathy, lumbar region Plan: L4 - L5 interlaminar epidural steroid injection. ?Informed consent was explained to the patient. All questions were explained and answered.? The patient was taken inside the operating room where she was positioned prone on the operating table. Time-out was performed delineating correct site, side, the nature of the procedure, patient's allergy, preoperative antibiotic if needed.? All operating room staff was participating in OR time-out procedure. The lower back was prepped with ChloraPrep and draped with sterile towels.? Sterilely draped C-arm was brought over the operating field and sq picture of?L4 and L5 vertebrae were delineated on the screen.? . Upper border of the left L5 lamina was chosen as a target of the needle advancement. The projection of the point of interest to the skin was injected with 4 mls of lidocaine 1% PF using 25 g 1 inch needle. After that 22g Touhy needle was inserted through the skin wheal and advanced to the point of interest under intermittent AP and lateral views. When the tip of the needle contacted the bone the needle was deviated cephalad and further advancement into the epidural space was made on the lateral view using IVY to saline technique. When the loss of resistance was felt the contrast was injected into the needle demonstrating posterior epidurogram. After that injection of treatment solution of PF lidocaine 1% mixed with methylprednisolon 80 mg was made into the needle . After that the needle was removed and bandaid was applied. The patient tolerated the procedure well, she was taken to recovery room where she recovered uneventfully. Orders: Orders FL guidance in treatment room Today M54.16 - Radiculopathy, lumbar region Coding Level of Care Code Procedure Only Diagnoses Lumbar radiculopathy M54.16
[2023-12-05 08:19] VITALS: BP 130/70; PULSE 60; RESP 14; O2SAT 97; BMI 35.2
[2023-12-05 08:20] VITALS: BP 126/62; PULSE 58; RESP 14; O2SAT 97; BMI 35.2
== END 2023-12-05 09:08 | disposition home or self-care (01) ==
LOC: HO.PMCPRC 08:05
PROVIDERS: PCP Internal Medicine; Visit Provider Anesthesiology
DX: M54.16 Radiculopathy, lumbar region (principal)
CPT/HCPCS: 62323

== ENCOUNTER 2024-01-03 10:31 | Outpatient (AMB) | payer MEDICARE, SELFPAY ==
--- NOTE | 2024-01-03 10:32 | MHC.OFFVIS ---
Intake Vital Signs 01/03/24 10:50 Height 5 ft Weight 191 lb BMI 37.3 BP 150/78 H Blood Pressure Location Lt radial Position Sitting Respiration 14 Pulse 52 Pulse Source Pulse Oximeter Pulse Oximetry (%) 98 Oxygen Delivery Method Room Air Intake Visit Reasons: L4, L5 INTERLAMINAR GINETTE/12/05/22 Intake Note: Patient came in for the initial visit and was referred by [facility] orthopedic, she was accompanied by her brother Brian. Reports pain 04/22.? Allergies No Known Allergies [No Known Allergies*] Allergy (Verified 01/03/24 10:52) HPI HPI Comments History of Present Illness Details Shruthi is very pleasant 73 years old female who presents in my office as a new patient appointment after the procedure which was performed for her by me: I did interlaminar L4-5 epidural steroid injection on the left. For this procedure she was referred to me by Dr. Lackey. She reported 2 weeks of very significant pain relief, however her pain returned after 2 weeks and she reports that pain is even stronger than it was before the injection. She reports that she can not sleep normally because of her pain but she can not do activities of daily living she can not take care of herself and he she can not function normally. She reports that weather changes in movements aggravate her pain. Prolonged sitting aggravates her pain. Flexing forward aggravates her pain. Walking aggravates her pain. Application of the heat topical medications and oral medications make her pain slightly better. The pain is most severe at the bedtime and after walking. In terms of tissue damage he reports her pain is tight squeezing and tearing sensation. She has MRI of the lumbar spine which is dictated as below. She had physical therapy which only caused aggravation of her pain. She adamantly refuses to go for physical therapy. Her past medical history significant for hypertension gout and dizziness and fainting. Her past surgical history significant for breast biopsy eye surgery and bilateral tubal ligation. She reports previously smoking cigarettes but now she stopped. She used to smoke 2 packs per day. She denies drinking alcohol admits drinking caffeinated beverages 2 cups of coffee daily and she denies recreational drugs. FORMERLY [facility], [facility]–1983 Medical History (Updated 01/03/24 @ 11:21 by Rene Quintero MD) Vertebral compression fracture Essential hypertension Non-rheumatic aortic stenosis Chronic diastolic (congestive) heart failure Surgical History History of breast biopsy History of hysterectomy Family History Father Dementia Mother Hypertension Alzheimer disease Social History Alcohol intake: never Patient Tobacco Use Status: Former Tobacco user Quit Date: 20+ yrs ago Review of Systems Const Denies weakness ENT Denies dizziness Card Denies chest pain and Denies chest pain with activity Resp Denies cough GI Denies hematochezia and Denies change in stool character Musc Reports as per HPI, Reports back pain and Reports radiating pain into limb Neuro Denies dizziness and Denies weakness Physical Exam Vital Signs: Last Vital Signs Pulse 52 01/03/24 10:50 Resp 14 01/03/24 10:50 BP 150/78 H 01/03/24 10:50 Pulse Ox 98 01/03/24 10:50 Oxygen Delivery Method Room Air 01/03/24 10:50 BMI result Body Mass Index 37.3 Constitutional: Patient appears to be in no acute distress, well nourished and well developed. Patient was appropriately conversant and oriented. Good historian. MSK: No specific abnormalities found on inspection of the spine and all extremities. No pain with palpation over the lumbar area. No pain point spinous process tenderness. No SI joint tenderness. Negative Kraig test, negative Stinchfield test. No GT tenderness. Loading test is positive on the left. Lumbar ROM was full. SLR is negative bilaterally. Bilateral hip, knee and ankle ROM WNL. No ligamentous laxity or crepitance. No increased effusion. Difficulty getting up on the bed. Strength is 5/5 in all muscle groups tested. No increased tone noted. No footdrop. Neurological: Neurologic examination of the upper and lower extremities was nonfocal with intact sensation, muscle stretch reflexes and without focal motor deficits . Buenrostro?s negative bilaterally. Babinski was down going bilaterally. Clonus was negative. Gait is non-antalgic without loss of balance. Results Reviewed Results Reviewed: MR LUMBAR SPINE WITHOUT CONTRAST CLINICAL INFORMATION: T12 compression fracture. COMPARISON: Lumbar radiographs 02/18/2023 TECHNIQUE: MRI of the lumbar spine was obtained using routine sequences without the administration of intravenous contrast. FINDINGS: This examination assumes the presence of 5 lumbar type vertebral bodies. For the purposes of this examination, the L5-S1 intervertebral disc space is visualized on axial series 5 image 30. The normal lumbar lordosis is preserved. Retrolisthesis of L1-L2. Lumbar vertebral body heights are maintained. No evidence of acute compression deformity. Diffusely heterogeneous background marrow signal may reflect underlying osteoporosis. There is an intraosseous hemangioma the S2 vertebral body. Additional partially evaluated lesion along the right aspect of S3 may represent a large atypical intraosseous hemangioma but is indeterminate. The conus medullaris is normal in signal intensity and terminates at the level of L1-L2. T10-T11: Only visualized on sagittal sequences. Mild to moderate right neural foraminal stenosis. T11-T12: Disc bulge indents the ventral thecal sac with mild canal stenosis. The neural foramen remain patent. T12-L1: Diffuse disc bulge with extension into the bilateral neural foramen. Facet arthropathy with ligamentum flavum redundancy. Mild to moderate spinal canal stenosis with narrowing of the lateral recesses. There is moderate to severe right neural foraminal stenosis with abutment of the exiting nerve root. Severe left neural foraminal stenosis with exiting nerve root impingement. L1-L2: Disc bulge with small central disc extrusion with inferior migration. Facet arthropathy with ligamentum flavum redundancy. There is mild to moderate canal stenosis with narrowing of the lateral recesses. Moderate narrowing of the neural foramen. L2-L3: Disc bulge and facet arthropathy with ligamentum flavum redundancy. Mild to moderate canal stenosis with narrowing of the lateral recesses. There is moderate narrowing of the neural foramen with probable exiting nerve root impingement far lateral spaces. L3-L4: Trace disc bulge. Facet arthropathy with ligamentum flavum redundancy. The spinal canal is patent. Prominent epidural fat. The neural foramen are patent. L4-L5: Disc bulge with left foraminal/far lateral disc protrusion. Facet arthropathy with ligamentum flavum redundancy. The spinal canal is patent. Mild to moderate right neural foraminal stenosis. There is moderate left neural foraminal stenosis with exiting nerve root impingement. L5-S1: Left greater than right facet arthropathy with ligamentum flavum redundancy. The spinal canal is not significantly narrowed. There is moderate left greater than right neural foraminal stenosis with exiting nerve root abutment secondary to facet arthropathy. Left adrenal gland lesion measuring up to 2.5 cm. T2 hyperintense foci in the bilateral kidneys are too small to fully characterize. IMPRESSION: No acute compression deformity. Lumbar vertebral body heights are maintained. Mild to moderate multilevel spinal canal stenose as described above. Multilevel neural foraminal stenoses as described above with advanced bilateral neural foraminal narrowing at T12-L1 with exiting nerve root impingement. Partially visualized T2 hyperintense lesion along the right aspect of S3 is indeterminate. This may represent an atypical intraosseous hemangioma but is incompletely characterized on this examination. Redemonstrated left adrenal mass measuring up to 2.5 cm. Correlation with dedicated adrenal protocol CT is recommended if not already performed. Assessment & Plan Assessment & Plan (1) Lumbar radiculopathy: Code(s): M54.16 - Radiculopathy, lumbar region (2) Spondylosis of lumbar region without myelopathy or radiculopathy: Code(s): M47.816 - Spondylosis without myelopathy or radiculopathy, lumbar region (3) Vertebrogenic low back pain: Code(s): M54.51 - Vertebrogenic low back pain (4) Chronic pain syndrome: Code(s): G89.4 - Chronic pain syndrome Plan The results of therapeutic L4-5 interlaminar epidural steroid injections are not encouraging. The patient is reporting only 2 weeks of pain relief. At the same time she has significant facet arthropathy, I will schedule her for a diagnostic medial branch block L2-L3 L4 dorsal ramus L5 on the left. Risks benefits and alternatives were explained to the patient. The nature and purpose of diagnostic medial branch block us was explained to the patient. However her reports of pain exacerbated by prolonged sitting and flexing forward in the absence of physical and image evidence of sacroiliitis or sacroiliac joint pain make me think about possibility of at least partially involved vertebra genic pain in this patient. If left-sided L2-L3 L4 does ramus L5 medial branch block will not help her I will consider intrasept procedure for this patient. Patient Instructions: I here by testify that I spent 46 minutes in conversation with this patient, the conversation was held with the help of the patient's brother who is fluent both in Burmese and Italian. I also evaluated her prior records prior diagnostic studies and organizing this note. Coding Level of Care Code New Pt Level 4 (20815) Diagnoses Lumbar radiculopathy M54.16 Spondylosis of lumbar region without myelopathy or radiculopathy M47.816 Vertebrogenic low back pain M54.51 Chronic pain syndrome G89.4
[2024-01-03 10:50] VITALS: BP 150/78; PULSE 52; RESP 14; O2SAT 98; BMI 37.3
== END 2024-01-03 11:16 | disposition home or self-care (01) ==
PROVIDERS: PCP Internal Medicine; Referring Provider Physical Medicine & Rehabilitation; Visit Provider Anesthesiology
DX: M54.16 Radiculopathy, lumbar region (principal); M47.816 Spondylosis without myelopathy or radiculopathy, lumbar region; M54.51 Vertebrogenic low back pain; G89.4 Chronic pain syndrome
CPT/HCPCS: 99215

== ENCOUNTER → 2024-01-03 10:31 | Outpatient (BNVA) | payer MEDICARE, SELFPAY | PROVIDERS: PCP Internal Medicine; Referring Provider Physical Medicine & Rehabilitation; Visit Provider Anesthesiology | DX: M54.16 Radiculopathy, lumbar region (principal); M47.816 Spondylosis without myelopathy or radiculopathy, lumbar region; M54.51 Vertebrogenic low back pain; G89.4 Chronic pain syndrome | CPT/HCPCS: 99212 ==

== ENCOUNTER 2024-02-06 06:19 | Outpatient (REF) | payer MEDICARE, SELFPAY ==
--- NOTE | ~2024-02-06 | FL_ITS ---
EXAMINATION: XR FLUOROSCOPY WITH IMAGES CLINICAL INFORMATION: Spondylosis without myelopathy or radiculopathy, lumbar region COMPARISON: MR lumbar spine 10/16/2023 TECHNIQUE: Fluoroscopy Supervised By: Dr. Quintero. Fluoroscopy Time: 0.5. Cumulative Dose: 7.32 mGy. DAP: 0.127 Gycm2. Images: 8. FINDINGS: Multiple images demonstrate a series of needle overlying the lumbosacral spine at various levels, some with contrast injection. Please see Dr. Dominguez report for full details. FL/FL guidance in treatment room IMPRESSION: Fluoroscopy and spot films provided during lumbar procedure.
== END 2024-02-06 06:20 | disposition home or self-care (01) ==
LOC: CF 06:19
PROVIDERS: Visit Provider Anesthesiology
DX: M47.816 Spondylosis without myelopathy or radiculopathy, lumbar region (principal); M54.16 Radiculopathy, lumbar region; M54.51 Vertebrogenic low back pain
CPT/HCPCS: 64493; 64494; J2795; Q9967

== ENCOUNTER 2024-02-06 14:55 | Outpatient (AMB) | payer MEDICARE, SELFPAY ==
--- NOTE | 2024-02-06 15:03 | MHC.OFFVIS ---
Intake Vital Signs 02/06/24 15:57 02/06/24 15:58 Height 5 ft Weight 191 lb BMI 37.3 BP 136/78 124/76 Blood Pressure Location Lt brachial Lt brachial Position Sitting Sitting Respiration 18 16 Pulse 96 76 Pulse Source Pulse Oximeter Pulse Oximeter Pulse Oximetry (%) 96 97 Oxygen Delivery Method Room Air Room Air Comment Pre-Op Post-Op Intake Visit Reasons: LEFT DX L2,L3,L4, DRL5 MBB(ATIVAN REQUESTED) Allergies No Known Allergies [No Known Allergies*] Allergy (Verified 01/03/24 10:52) [facility] Medical History (Updated 01/03/24 @ 11:21 by Rene Quintero MD) Vertebral compression fracture Essential hypertension Non-rheumatic aortic stenosis Chronic diastolic (congestive) heart failure Surgical History History of breast biopsy History of hysterectomy Family History Father Dementia Mother Hypertension Alzheimer disease Social History Alcohol intake: never Patient Tobacco Use Status: Former Tobacco user Quit Date: 20+ yrs ago Assessment & Plan Assessment & Plan (1) Lumbar radiculopathy: Code(s): M54.16 - Radiculopathy, lumbar region (2) Spondylosis of lumbar region without myelopathy or radiculopathy: Code(s): M47.816 - Spondylosis without myelopathy or radiculopathy, lumbar region Plan: Diagnostic medial branch block L2, L3,L4 dorsal ramus L5 on the left. ?Informed consent was explained to the patient. All questions were explained and? answered.? The patient was taken inside the operating room where she was positioned prone on the operating table. Time-out was performed delineating correct site, side, the nature of the procedure, patient's allergy, . All operating room staff was participating in OR time-out procedure. ? ? The lower back was prepped with ChloraPrep and draped with sterile towels.? C-arm was brought over the operating field and sq picture of L3 L4, L5 vertebra and S1 AREA were delineated on the screen.? Point of interest were delineated as confluence of superior articular process of L3, L4 and L5 vertebra on the left with corresponding transverse processes as well as confluence of the sacral alae on the left with superior articular process of S1.? The projection of the point of interest to the skin were injected with the small amount of local anesthetic lidocaine 2% 1-1.5 cc.? After that 22 gauge 3.5 inch spinal needle was driven sequentially to the points of interest in tunnel vision fashion. After needles gently contacted the bone at the point of interests the needle was injected with small amount of the contrast.? The injection of the contrast did not demonstrate any intravascular or intrathecal spread of the contrast.? After that injection of the? ropivacaine 0.5%-1cc was performed at each needle location.??after that the needles were removed and Bandaids were applied. ? Upon completion of the injections? needle was? removed and sterile Band-Aids were applied.? The patient tolerated procedure very well. (3) Vertebrogenic low back pain: Code(s): M54.51 - Vertebrogenic low back pain (4) Chronic pain syndrome: Code(s): G89.4 - Chronic pain syndrome Plan The results of therapeutic L4-5 interlaminar epidural steroid injections are not encouraging. The patient is reporting only 2 weeks of pain relief. At the same time she has significant facet arthropathy, I will schedule her for a diagnostic medial branch block L2-L3 L4 dorsal ramus L5 on the left. Risks benefits and alternatives were explained to the patient. The nature and purpose of diagnostic medial branch block us was explained to the patient. However her reports of pain exacerbated by prolonged sitting and flexing forward in the absence of physical and image evidence of sacroiliitis or sacroiliac joint pain make me think about possibility of at least partially involved vertebra genic pain in this patient. If left-sided L2-L3 L4 does ramus L5 medial branch block will not help her I will consider intrasept procedure for this patient. Orders: Orders FL guidance in treatment room Today M47.816 - Spondylosis without myelopathy or radiculopathy, lumbar region Coding Level of Care Code Procedure Only Diagnoses Lumbar radiculopathy M54.16 Spondylosis of lumbar region without myelopathy or radiculopathy M47.816 Vertebrogenic low back pain M54.51 Chronic pain syndrome G89.4
[2024-02-06 15:57] VITALS: BP 136/78; PULSE 96; RESP 18; O2SAT 96; BMI 37.3
[2024-02-06 15:58] VITALS: BP 124/76; PULSE 76; RESP 16; O2SAT 97
== END 2024-02-06 15:57 | disposition home or self-care (01) ==
LOC: HO.PMCPRC 14:55
PROVIDERS: PCP Internal Medicine; Visit Provider Anesthesiology
DX: M54.16 Radiculopathy, lumbar region (principal); M47.816 Spondylosis without myelopathy or radiculopathy, lumbar region; M54.51 Vertebrogenic low back pain; G89.4 Chronic pain syndrome
CPT/HCPCS: 64493; 64494

== ENCOUNTER 2024-02-12 13:33 | Outpatient (AMB) | payer MEDICARE, SELFPAY ==
--- NOTE | 2024-02-12 13:37 | A.OFFVIS_ITS ---
Intake Vital Signs 02/12/24 13:48 Height 5 ft Weight 191 lb BMI 37.3 BP 132/62 Blood Pressure Location Lt brachial Position Sitting Respiration 14 Pulse 54 Pulse Source Pulse Oximeter Pulse Oximetry (%) 97 Oxygen Delivery Method Room Air Intake Visit Reasons: LEFT DIAGNOSTIC L2,L3,L4,DRL5 MBB Intake Note: Patient comes in for post-op appointment. Reports pain 0/10. Allergies No Known Allergies [No Known Allergies*] Allergy (Verified 02/12/24 13:48) HPI HPI Comments History of Present Illness Details Shruthi is back in my office after diagnostic left L2- L3-L4 -L5 medial branch block with ropivacaine only. Patient reported complete pain relief immediately after the procedure. Patient reported 0 pain for the entire day after the procedure. Patient reported that on Monday 5 days after the procedure she had minor pain resembling what she had before the surgery however very soon this pain went away. She reported excellent mobility good activities of daily living good social interactions. Patient is very satisfied with her injection. We discussed today possibility of treatment of her condition when pain will come back. I explained her sprint PNS as a modality to treat her pain. She agreed to go for the procedure. We agreed that as soon as she starts to feel her pain coming back she will give us a call and I will schedule her for sprint PNS L4 possible L3 possible L5 on the left unilateral procedure. Prior: Results of interlaminar L4-5 epidural steroid injection on the left. For this procedure she was referred to me by Dr. Lackey. She reported 2 weeks of very significant pain relief, however her pain returned after 2 weeks and she reports that pain is even stronger than it was before the injection. She repor ts that she can not sleep normally because of her pain but she can not do activities of daily living she can not take care of herself and he she can not function normally. She reports that weather changes in movements aggravate her pain. Prolonged sitting aggravates her pain. Flexing forward aggravates her pain. Walking aggravates her pain. Application of the heat topical medications and oral medications make her pain slightly better. The pain is most severe at the bedtime and after walking. She had physical therapy which only caused aggravation of her pain. She adamantly refuses to go for physical therapy. [facility] Medical History (Updated 01/03/24 @ 11:21 by Rene Quintero MD) Vertebral compression fracture Essential hypertension Non-rheumatic aortic stenosis Chronic diastolic (congestive) heart failure Surgical History History of breast biopsy History of hysterectomy Family History Father Dementia Mother Hypertension Alzheimer disease Social History Alcohol intake: never Patient Tobacco Use Status: Former Tobacco user Quit Date: 20+ yrs ago Review of Systems Const All systems reviewed & are unremarkable except as noted in HPI and below Physical Exam Vital Signs: Last Vital Signs Pulse 54 02/12/24 13:48 Resp 14 02/12/24 13:48 BP 132/62 02/12/24 13:48 Pulse Ox 97 02/12/24 13:48 Oxygen Delivery Method Room Air 02/12/24 13:48 BMI result Body Mass Index 37.3 Constitutional: Patient appears to be in no acute distress, well nourished and well developed. Patient was appropriately conversant and oriented. Good historian. MSK: No specific abnormalities found on inspection of the spine and all extremities. No pain with palpation over the lumbar area. No pain point spinous process tenderness. No SI joint tenderness. Negative Kraig test, negative Stinchfield test. No GT tenderness. Loading test is positive on the left. Lumbar ROM was full. SLR is negative bilaterally. Bilateral hip, knee and ankle ROM WNL. No ligamentous laxity or crepitance. No increased effusion. Difficulty getting up on the bed. Strength is 5/5 in all muscle groups tested. No increased tone noted. No footdrop. Neurological: Neurologic examination of the upper and lower extremities was nonfocal with intact sensation, muscle stretch reflexes and without focal motor deficits . Buenrostro?s negative bilaterally. Babinski was down going bilaterally. Clonus was negative. Gait is non-antalgic without loss of balance. Results Reviewed Results Reviewed: MR LUMBAR SPINE WITHOUT CONTRAST CLINICAL INFORMATION: T12 compression fracture. COMPARISON: Lumbar radiographs 02/18/2023 TECHNIQUE: MRI of the lumbar spine was obtained using routine sequences without the administration of intravenous contrast. FINDINGS: This examination assumes the presence of 5 lumbar type vertebral bodies. For the purposes of this examination, the L5-S1 intervertebral disc space is visualized on axial series 5 image 30. The normal lumbar lordosis is preserved. Retrolisthesis of L1-L2. Lumbar vertebral body heights are maintained. No evidence of acute compression deformity. Diffusely heterogeneous background marrow signal may reflect underlying osteoporosis. There is an intraosseous hemangioma the S2 vertebral body. Additional partially evaluated lesion along the right aspect of S3 may represent a large atypical intraosseous hemangioma but is indeterminate. The conus medullaris is normal in signal intensity and terminates at the level of L1-L2. T10-T11: Only visualized on sagittal sequences. Mild to moderate right neural foraminal stenosis. T11-T12: Disc bulge indents the ventral thecal sac with mild canal stenosis. The neural foramen remain patent. T12-L1: Diffuse disc bulge with extension into the bilateral neural foramen. Facet arthropathy with ligamentum flavum redundancy. Mild to moderate spinal canal stenosis with narrowing of the lateral recesses. There is moderate to severe right neural foraminal stenosis with abutment of the exiting nerve root. Severe left neural foraminal stenosis with exiting nerve root impingement. L1-L2: Disc bulge with small central disc extrusion with inferior migration. Facet arthropathy with ligamentum flavum redundancy. There is mild to moderate canal stenosis with narrowing of the lateral recesses. Moderate narrowing of the neural foramen. L2-L3: Disc bulge and facet arthropathy with ligamentum flavum redundancy. Mild to moderate canal stenosis with narrowing of the lateral recesses. There is moderate narrowing of the neural foramen with probable exiting nerve root impingement far lateral spaces. L3-L4: Trace disc bulge. Facet arthropathy with ligamentum flavum redundancy. The spinal canal is patent. Prominent epidural fat. The neural foramen are patent. L4-L5: Disc bulge with left foraminal/far lateral disc protrusion. Facet arthropathy with ligamentum flavum redundancy. The spinal canal is patent. Mild to moderate right neural foraminal stenosis. There is moderate left neural foraminal stenosis with exiting nerve root impingement. L5-S1: Left greater than right facet arthropathy with ligamentum flavum redundancy. The spinal canal is not significantly narrowed. There is moderate left greater than right neural foraminal stenosis with exiting nerve root abutment secondary to facet arthropathy. Left adrenal gland lesion measuring up to 2.5 cm. T2 hyperintense foci in the bilateral kidneys are too small to fully characterize. IMPRESSION: No acute compression deformity. Lumbar vertebral body heights are maintained. Mild to moderate multilevel spinal canal stenose as described above. Multilevel neural foraminal stenoses as described above with advanced bilateral neural foraminal narrowing at T12-L1 with exiting nerve root impingement. Partially visualized T2 hyperintense lesion along the right aspect of S3 is indeterminate. This may represent an atypical intraosseous hemangioma but is incompletely characterized on this examination. Redemonstrated left adrenal mass measuring up to 2.5 cm. Correlation with dedicated adrenal protocol CT is recommended if not already performed. Assessment & Plan Assessment & Plan (1) Lumbar radiculopathy: Code(s): M54.16 - Radiculopathy, lumbar region (2) Spondylosis of lumbar region without myelopathy or radiculopathy: Code(s): M47.816 - Spondylosis without myelopathy or radiculopathy, lumbar region (3) Vertebrogenic low back pain: Code(s): M54.51 - Vertebrogenic low back pain (4) Chronic pain syndrome: Code(s): G89.4 - Chronic pain syndrome Plan The results of therapeutic L4-5 interlaminar epidural steroid injections are not encouraging. The patient is reporting only 2 weeks of pain relief. At the same time she has significant facet arthropathy, diagnostic medial branch block L2-L3 L4 dorsal ramus L5 on the left. Resulted in almost a week of pain relief. She reports 0 pain today. We agreed that when her pain will start to come back she will call this office and we will schedule her for sprint PNS unilateral on the left L4 possible L3 possible L5 possible S1. her reports of pain exacerbated by prolonged sitting and flexing forward in the absence of physical and image evidence of sacroiliitis or sacroiliac joint pain make me think about possibility of at least partially involved vertebra genic pa in in this patient. At this time patient does not complain on any pain. If prolonged sitting pain will be more prominent in the future or if sprint PNS will not be working for the patient intercept can be offered to treat this pain. Coding Level of Care Code Est Pt Level 3 (43004) Diagnoses Lumbar radiculopathy M54.16 Spondylosis of lumbar region without myelopathy or radiculopathy M47.816 Vertebrogenic low back pain M54.51 Chronic pain syndrome G89.4
[2024-02-12 13:48] VITALS: BP 132/62; PULSE 54; RESP 14; O2SAT 97; BMI 37.3
== END 2024-02-12 14:03 | disposition home or self-care (01) ==
PROVIDERS: PCP Internal Medicine; Visit Provider Anesthesiology
DX: M54.16 Radiculopathy, lumbar region (principal); M47.816 Spondylosis without myelopathy or radiculopathy, lumbar region; M54.51 Vertebrogenic low back pain; G89.4 Chronic pain syndrome
CPT/HCPCS: 99213

== ENCOUNTER → 2024-02-12 13:33 | Outpatient (BNVA) | payer MEDICARE, SELFPAY | PROVIDERS: PCP Internal Medicine; Visit Provider Anesthesiology | DX: M54.16 Radiculopathy, lumbar region (principal); M47.816 Spondylosis without myelopathy or radiculopathy, lumbar region; M54.51 Vertebrogenic low back pain; G89.4 Chronic pain syndrome | CPT/HCPCS: 99212 ==

== ENCOUNTER 2024-02-14 09:01 | Outpatient (AMB) | payer MEDICARE, SELFPAY ==
--- NOTE | 2024-02-14 09:08 | MHC.OFFVIS ---
Intake Vital Signs 02/14/24 09:11 Height 5 ft Weight 194 lb 0.108 oz BMI 37.9 BP 118/62 Blood Pressure Location Lt brachial Position Sitting Pulse 52 Intake Visit Reasons: r/s 6 mos followup Intake Note: 6 month follow up Hydrologic Engineer Required: No Accompanied by: Daughter Allergies No Known Allergies [No Known Allergies*] Allergy (Verified 02/14/24 09:10) Medication List - Last Reconciled 02/14/24 by Geovany Dong MD acetaminophen (Tylenol) 650 mg PO Q6H PRN allopurinol 200 mg PO BEDTIME amlodipine 10 mg PO BEDTIME atenolol 50 mg PO BEDTIME atorvastatin 20 mg PO BEDTIME benazepril 40 mg PO BEDTIME fluoxetine 20 mg PO BEDTIME furosemide 10 mg PO DAILY gabapentin 600 mg PO BEDTIME levothyroxine 200 mcg PO TURNER@0600 levothyroxine 100 mcg PO MOTUWETHFRSA@0600 lorazepam 0.5 mg PO DAILY PRN HPI HPI Comments History of Present Illness Details Kaylee returns for follow-up regarding chronic diastolic heart failure as well as aortic stenosis. Overall, she is doing fine. Shortness of breath is at baseline. No major limitations. No angina or in fact any other complaints at this time. [facility] Medical History (Updated 01/03/24 @ 11:21 by Rene Quintero MD) Vertebral compression fracture Essential hypertension Non-rheumatic aortic stenosis Chronic diastolic (congestive) heart failure Surgical History History of breast biopsy History of hysterectomy Family History Father Dementia Mother Hypertension Alzheimer disease Social History Alcohol intake: never Patient Tobacco Use Status: Former Tobacco user Quit Date: 20+ yrs ago Review of Systems Const Denies weakness ENT Denies dizziness Card Denies chest pain, Denies chest pain with activity, Denies syncope, Denies rapid heart rate, Denies pedal edema, Denies edema, Denies leg edema, Denies lightheadedness, Denies palpitations, Denies dyspnea, Denies dyspnea on exertion and Denies orthopnea Resp Denies cough, Denies dyspnea and Denies dyspnea on exertion GI Denies hematochezia and Denies change in stool character Musc Denies abnormal gait, Denies muscle cramps, Denies muscle weakness, Denies numbness, Denies radiating pain into limb and Denies tingling Neuro Denies abnormal gait, Denies dizziness, Denies syncope, Denies numbness, Denies tingling and Denies weakness Endo Denies palpitations Physical Exam Vital Signs: Last Vital Signs Pulse 52 02/14/24 09:11 BP 118/62 02/14/24 09:11 BMI result Body Mass Index 37.9 Const General: comfortable and no acute distress Orientation/consciousness: patient oriented x3 HEENT Other: Unremarkable Head: Yes normal to inspection Neck Neck: Yes normal visual inspection Chest Chest palpation & inspection: normal inspection of the chest Resp Auscultation: clear to auscultation bilaterally Cardio Palpation: normal PMI Heart sounds: S1 normal heart sound present, S2 normal heart sound present, no gallops, Murmur heart sound present systolic II/ and at the right sternal border and no rubs GI Palpation (GI): Soft to palpation Back/Spine/Pelvis Other: unremarkable Skin General skin exam: no rashes or lesions noted Neuro General: patient oriented x3 Extrem General: Yes normal to inspection Psych Mental Status: mental status grossly normal Assessment & Plan Assessment & Plan (1) Chronic diastolic (congestive) heart failure: Code(s): I50.32 - Chronic diastolic (congestive) heart failure Plan: Echocardiogram with pseudonormal filling pattern and elevated LVEDP. Continue diuretics. Will request labs from PCP. (2) Non-rheumatic aortic stenosis: Code(s): I35.0 - Nonrheumatic aortic (valve) stenosis Plan: Echocardiogram was suggestive of mild aortic stenosis. Mean gradient across aortic valve was 16 mm Hg. Calculated valve area of 1.6 sq cm. Recheck in a year or so. (3) Essential hypertension: Code(s): I10 - Essential (primary) hypertension Plan: Stable on current regimen including amlodipine, atenolol, benazepril. Plan Discussed with daughter. Orders: Orders CA echo transthoracic complete 1 Year I35.0 - Nonrheumatic aortic (valve) stenosis Coding Level of Care Code Est Pt Level 4 (87109) Diagnoses Chronic diastolic (congestive) heart failure I50.32 Non-rheumatic aortic stenosis I35.0 Essential hypertension I10
[2024-02-14 09:11] VITALS: BP 118/62; PULSE 52; BMI 37.9
== END 2024-02-14 09:24 | disposition home or self-care (01) ==
PROVIDERS: PCP Internal Medicine; Visit Provider Internal Medicine
DX: I50.32 Chronic diastolic (congestive) heart failure (principal); I35.0 Nonrheumatic aortic (valve) stenosis; I10 Essential (primary) hypertension
CPT/HCPCS: 99214

== ENCOUNTER → 2024-02-14 09:01 | Outpatient (BNVA) | payer MEDICARE, SELFPAY | PROVIDERS: PCP Internal Medicine; Visit Provider Internal Medicine | DX: I11.0 Hypertensive heart disease with heart failure (principal); I50.32 Chronic diastolic (congestive) heart failure; I35.0 Nonrheumatic aortic (valve) stenosis | CPT/HCPCS: 99212 ==

== ENCOUNTER 2024-03-05 06:12 | Outpatient (REF) | payer MEDICARE, SELFPAY ==
--- NOTE | ~2024-03-05 | FL_ITS ---
EXAMINATION: XR FLUOROSCOPY WITH IMAGES CLINICAL INFORMATION: Left shoulder injection COMPARISON: None available. TECHNIQUE: Fluoroscopy Supervised By: Orthopedic surgeon. Fluoroscopy Time: 0.1 minutes. Cumulative Dose: 1.47 mGy. DAP: 0.255 Gycm2. Images: 1. FINDINGS: Injection of contrast into the glenohumeral joint. FL/FL guidance in treatment room IMPRESSION: Intra-articular contrast injection.
== END 2024-03-05 06:13 | disposition home or self-care (01) ==
LOC: CF 06:12
PROVIDERS: Visit Provider Anesthesiology
DX: M54.16 Radiculopathy, lumbar region (principal); M47.816 Spondylosis without myelopathy or radiculopathy, lumbar region; M54.51 Vertebrogenic low back pain; G89.4 Chronic pain syndrome
CPT/HCPCS: 20610; J2795; J3301; Q9967

== ENCOUNTER 2024-03-05 10:05 | Outpatient (AMB) | payer MEDICARE, SELFPAY ==
[2024-03-05 10:31] VITALS: BP 152/90; PULSE 53; RESP 14; O2SAT 96; BMI 37.9
--- NOTE | 2024-03-05 10:31 | MHC.OFFVIS ---
Vital Signs 03/05/24 10:31 03/05/24 11:20 Height 5 ft Weight 194 lb BMI 37.9 BP 152/90 H 142/88 H Blood Pressure Location Lt brachial Lt brachial Position Sitting Sitting Respiration 14 16 Pulse 53 66 Pulse Source Pulse Oximeter Pulse Oximeter Pulse Oximetry (%) 96 97 Oxygen Delivery Method Room Air Room Air Comment Pre-Op Post-Op Intake Visit Reasons: LEFT SHOULDER INJECTION Allergies No Known Allergies [No Known Allergies*] Allergy (Verified 02/14/24 09:10) PFSH Medical History (Updated 01/03/24 @ 11:21 by Rene Quintero MD) Vertebral compression fracture Essential hypertension Non-rheumatic aortic stenosis Chronic diastolic (congestive) heart failure Surgical History History of breast biopsy History of hysterectomy Family History Father Dementia Mother Hypertension Alzheimer disease Social History Alcohol intake: never Patient Tobacco Use Status: Former Tobacco user Quit Date: 20+ yrs ago Physical Exam Vital Signs: Last Vital Signs Pulse 66 03/05/24 11:20 Resp 16 03/05/24 11:20 BP 142/88 H 03/05/24 11:20 Pulse Ox 97 03/05/24 11:20 Oxygen Delivery Method Room Air 03/05/24 11:20 BMI result Body Mass Index 37.9 Assessment & Plan Assessment & Plan (1) Lumbar radiculopathy: Code(s): M54.16 - Radiculopathy, lumbar region Category: Medical (2) Spondylosis of lumbar region without myelopathy or radiculopathy: Code(s): M47.816 - Spondylosis without myelopathy or radiculopathy, lumbar region Category: Medical (3) Vertebrogenic low back pain: Code(s): M54.51 - Vertebrogenic low back pain Category: Medical (4) Chronic pain syndrome: Code(s): G89.4 - Chronic pain syndrome Category: Medical Plan: Therapeutic left shoulder glenohumeral joint injection. Informed consent was explained thoroughly to the patient. All questions about benefits and risks for the procedure were answered. Patient came to the operating room and was positioned prone on the operating table with the pillow under the chest Time-out was performed delineating site and side of the procedure name minute of of the patient. The left shoulder left side of the neck and left upper back of the patient were prepped with ChloraPrep prepped and draped with sterile utility self adhesive towels. C-arm was brought over the operating field and sq picture of patient's glenohumeral joint was demonstrated on the screen. Superior medial portion of the joint was chosen as the target of the injection. Projection of the target to the skin was injected with small amount of lidocaine 2% 2 mL. After that 22 gauge 3 and 1/2 inch needle was driven to the left joint in tunnel vision fashion. When needle entered the joint capsule injection of the contrast was performed demonstrating intra-articular r spread of the contrast. After that 4 cc. of ropivacaine 0.5% mixed with Kenalog 40 mg was injected into the left joint. Upon completion of the injections the needle was removed . Sterile dressing was applied. Upon completion of the injection patient was taken outside of the operating room to the recovery room where recovered uneventfully. Plan The results of therapeutic L4-5 interlaminar epidural steroid injections are not encouraging. The patient is reporting only 2 weeks of pain relief. At the same time she has significant facet arthropathy, diagnostic medial branch block L2-L3 L4 dorsal ramus L5 on the left. Resulted in almost a week of pain relief. She reports 0 pain today. We agreed that when her pain will start to come back she will call this office and we will schedule her for sprint PNS unilateral on the left L4 possible L3 possible L5 possible S1. her reports of pain exacerbated by prolonged sitting and flexing forward in the absence of physical and image evidence of sacroiliitis or sacroiliac joint pain make me think about possibility of at least partially involved vertebra genic pain in this patient. At this time patient does not complain on any pain. If prolonged sitting pain will be more prominent in the future or if sprint PNS will not be working for the patient intercept can be offered to treat this pain. Coding Level of Care Code Procedure Only Diagnoses Lumbar radiculopathy M54.16 Spondylosis of lumbar region without myelopathy or radiculopathy M47.816 Vertebrogenic low back pain M54.51 Chronic pain syndrome G89.4
[2024-03-05 11:20] VITALS: BP 142/88; PULSE 66; RESP 16; O2SAT 97
== END 2024-03-05 11:21 | disposition home or self-care (01) ==
LOC: HO.PMCPRC 10:05
PROVIDERS: PCP Internal Medicine; Visit Provider Anesthesiology
DX: M54.16 Radiculopathy, lumbar region (principal); M47.816 Spondylosis without myelopathy or radiculopathy, lumbar region; M54.51 Vertebrogenic low back pain; G89.4 Chronic pain syndrome
CPT/HCPCS: 20610; 77002

== ENCOUNTER 2024-03-28 14:49 | Outpatient (AMB) | payer MEDICARE, SELFPAY ==
--- NOTE | 2024-03-28 14:58 | A.OFFVIS_ITS ---
Vital Signs 03/28/24 15:11 Height 5 ft Weight 195 lb 8 oz BMI 38.2 BP 140/96 H Blood Pressure Location Lt brachial Position Sitting Respiration 16 Pulse 52 Pulse Source Pulse Oximeter Pulse Oximetry (%) 97 Oxygen Delivery Method Room Air Intake Visit Reasons: LEFT SHOULDER INJECTION Intake Note: Patient comes in for post-op appointment. Reports pain 0/10. Allergies No Known Allergies [No Known Allergies*] Allergy (Verified 03/28/24 15:10) HPI Comments Details: Shruthi is back in my office with her daughter Betty Dueñas after therapeutic shoulder injection. She reports excellent pain relief after the injection. She demonstrated grade mobility of the shoulder and she reported excellent activities of daily living. Possibility of future treatment of her shoulder explained to the patient and to her daughter. Possibility of treating the continuous pain with steroid injection was explained to the daughter in to the patient. Alternatively PRP could be better way to treat her pain. The nature of PRP was explained to the patient. When the pain will come back the patient and her daughter will give me the decision whether they want to proceed with therapeutic steroid injections or PRP injections. Prior: after diagnostic left L2- L3-L4 -L5 medial branch block with ropivacaine only. Patient reported complete pain relief immediately after the procedure. Patient reported 0 pain for the entire day after the procedure. Patient reported that on Monday 5 days after the procedure she had minor pain resembling what she had before the surgery however very soon this pain went away. She reported excellent mobility good activities of daily living good social interactions. Patient is very satisfied with her injection. We discussed today possibility of treatment of her condition when pain will come back. I explained her sprint PNS as a modality to treat her pain. She agreed to go for the procedure. We agreed that as soon as she starts to feel her pain coming back she will give us a call and I will schedule her for sprint PNS L4 possible L3 possible L5 on the left unilateral procedure. Prior: Results of interlaminar L4-5 epidural steroid injection on the left. For this procedure she was referred to me by Dr. Lackey. She reported 2 weeks of very significant pain relief, however her pain returned after 2 weeks and she reports that pain is even stronger than it was before the injection. She reports that she can not sleep normally because of her pain but she can not do activities of daily living she can not take care of herself and he she can not function normally. She reports that weather changes in movements aggravate her pain. Prolonged sitting aggravates her pain. Flexing forward aggravates her pain. Walking aggravates her pain. Application of the heat topical medications and oral medications make her pain slightly better. The pain is most severe at the bedtime and after walking. She had physical therapy which only caused aggravation of her pain. She adamantly refuses to go for physical therapy. [facility] Medical History (Updated 01/03/24 @ 11:21 by Rene Quintero MD) Vertebral compression fracture Essential hypertension Non-rheumatic aortic stenosis Chronic diastolic (congestive) heart failure Surgical History History of breast biopsy History of hysterectomy Family History Father Dementia Mother Hypertension Alzheimer disease Social History Alcohol intake: never Patient Tobacco Use Status: Former Tobacco user Quit Date: 20+ yrs ago Review of Systems Const All systems reviewed & are unremarkable except as noted in HPI and below Physical Exam Vital Signs: Last Vital Signs Pulse 52 03/28/24 15:11 Resp 16 03/28/24 15:11 BP 140/96 H 03/28/24 15:11 Pulse Ox 97 03/28/24 15:11 Oxygen Delivery Method Room Air 03/28/24 15:11 BMI result Body Mass Index 38.2 Constitutional: Patient appears to be in no acute distress, well nourished and well developed. Patient was appropriately conversant and oriented. Good historian. MSK: No specific abnormalities found on inspection of the spine and all extremities. No pain with palpation over the lumbar area. No pain point spinous process tenderness. No SI joint tenderness. Negative Kraig test, negative Stinchfield test. No GT tenderness. Loading test is positive on the left. Lumbar ROM was full. SLR is negative bilaterally. Bilateral hip, knee and ankle ROM WNL. No ligamentous laxity or crepitance. No increased effusion. Difficulty getting up on the bed. Strength is 5/5 in all muscle groups tested. No increased tone noted. No footdrop. Neurological: Neurologic examination of the upper and lower extremities was nonfocal with intact sensation, muscle stretch reflexes and without focal motor deficits . Buenrostro?s negative bilaterally. Babinski was down going bilaterally. Clonus was negative. Gait is non-antalgic without loss of balance. Assessment & Plan Assessment & Plan (1) Lumbar radiculopathy: Code(s): M54.16 - Radiculopathy, lumbar region Category: Medical (2) Spondylosis of lumbar region without myelopathy or radiculopathy: Code(s): M47.816 - Spondylosis without myelopathy or radiculopathy, lumbar region Category: Medical (3) Vertebrogenic low back pain: Code(s): M54.51 - Vertebrogenic low back pain Category: Medical (4) Chronic pain syndrome: Code(s): G89.4 - Chronic pain syndrome Category: Medical Plan The results of therapeutic L4-5 interlaminar epidural steroid injections are not encouraging. The patient is reporting only 2 weeks of pain relief. At the same time she has significant facet arthropathy, diagnostic medial branch block L2-L3 L4 dorsal ramus L5 on the left. Resulted in in continuous pain relief in the back. It has been more than a month since diagnostic injection was performed. She went for steroid injection into the left shoulder was also excellent results. Possibility of treatment with PRP future versus continuous steroid injections were explained to the patient, they were discussed. y. when her pain will start to come back she will call this office and we will schedule her for sprint PNS unilateral on the left L4 possible L3 possible L5 possible S1. Patient Instructions: I here by testify that I spent 30 minutes in conversation with this patient as well as evaluating her prior records, prior diagnostic studies and organizing this note. Coding Level of Care Code Est Pt Level 4 (34375) Diagnoses Lumbar radiculopathy M54.16 Spondylosis of lumbar region without myelopathy or radiculopathy M47.816 Vertebrogenic low back pain M54.51 Chronic pain syndrome G89.4
[2024-03-28 15:11] VITALS: BP 140/96; PULSE 52; RESP 16; O2SAT 97; BMI 38.2
== END 2024-03-28 15:20 | disposition home or self-care (01) ==
PROVIDERS: PCP Internal Medicine; Visit Provider Anesthesiology
DX: M54.16 Radiculopathy, lumbar region (principal); M47.816 Spondylosis without myelopathy or radiculopathy, lumbar region; M54.51 Vertebrogenic low back pain; G89.4 Chronic pain syndrome
CPT/HCPCS: 99214

== ENCOUNTER → 2024-03-28 14:49 | Outpatient (BNVA) | payer MEDICARE, SELFPAY | PROVIDERS: PCP Internal Medicine; Visit Provider Anesthesiology | DX: M54.16 Radiculopathy, lumbar region (principal); M47.816 Spondylosis without myelopathy or radiculopathy, lumbar region; M54.51 Vertebrogenic low back pain; G89.4 Chronic pain syndrome | CPT/HCPCS: 99212 ==

== ENCOUNTER 2024-09-25 11:46 | Inpatient (IN) | payer MEDICARE, SELFPAY ==
[2024-09-25] VITALS (9 sets, daily range): BP systolic 79–136; BP diastolic 41–61; PULSE 49–55; RESP 16–22; TEMP 36.5–36.6; O2SAT 92–97; BMI 35.2
--- NOTE | ~2024-09-25 | XR_ITS ---
EXAMINATION: XR CHEST CLINICAL INFORMATION: 74-year-old female with cough COMPARISON: None available. TECHNIQUE: Frontal view of the chest was obtained. FINDINGS: No significant abnormality is noted involving the heart, lungs, mediastinum, bony thorax or soft tissues. XR/XR chest 1V IMPRESSION: Unremarkable examination. Electronically signed by: Charity Ku MD 09/25/2024 03:10 PM [facility]
--- NOTE | ~2024-09-25 | CT_ITS ---
EXAMINATION: CT HEAD WITHOUT CONTRAST CLINICAL INFORMATION: altered COMPARISON: None available. TECHNIQUE: Contiguous axial imaging was performed from the skull base to vertex without intravenous administration of contrast. This CT examination was performed using dose optimization techniques as appropriate, variously including the following: *Automated exposure control *Adjustment of mA and/or kV according to patient size (this includes techniques or standardized protocols for targeted exams where dose is matched to indication/reason for exam; i.e. extremities or head) *Use of iterative reconstruction technique DLP: 613.1 mGy-cm FINDINGS: No acute intracranial hemorrhage, mass effect, midline shift, hydrocephalus or herniation. Wong-white matter differentiation is normal. Posterior cranial fossa contents demonstrated no acute intracranial hemorrhage or mass effect. Sellar/suprasellar region demonstrated no gross masses or hemorrhage. Craniocervical junction is intact and normal. The bony calvarium is intact. No gross soft tissue scalp hematoma/contusion. Skull base is intact. Tympanic cavities and mastoid air cells are aerated. Mucosal thickening and minimal secretions in the maxillary sinuses. CT/CT head/brain wo IV con IMPRESSION: No acute intracranial hemorrhage or acute brain abnormality by CT. Electronically signed by: Chaim Cage MD 09/25/2024 02:16 PM [facility]
--- NOTE | ~2024-09-25 | CT_ITS ---
EXAMINATION: CT ANGIOGRAM CHEST CLINICAL INFORMATION: Hypotension. Weakness. Concerning dissection. COMPARISON: CT angiogram chest dated July 27, 2019 TECHNIQUE: Multiple axial images were obtained through the chest after the administration of 70 mL of Omnipaque 350 intravenous contrast without reported immediate complications. Extensive vascular post-processing including two-dimensional and three-dimensional reformatted images were created and reviewed on an independent workstation. This CT examination was performed using dose optimization techniques as appropriate, variously including the following: *Automated exposure control *Adjustment of mA and/or kV according to patient size (this includes techniques or standardized protocols for targeted exams where dose is matched to indication/reason for exam; i.e. extremities or head) *Use of iterative reconstruction technique DLP: 477.55 mGy-cm FINDINGS: Limited by patient's breathing motion artifact. Thoracic aorta is patent. Normal caliber from the aortic valve to the descending thoracic aorta. No intraluminal filling defects. Calcified plaques in the thoracic aortic arch and the origin of main branches. The brachiocephalic trunk, common carotid arteries and less artery are patent. The proximal segments of the vertebral arteries are orientating from the subclavian arteries are patent. Calcified plaques in the origin of the celiac trunk. No gross intraluminal filling defects within the main pulmonary artery or its main branches. There is IV contrast enhancement of the coronary arteries. Calcified plaques in the coronary arteries. Bilateral multifocal patchy mosaic pattern, more conspicuous in the lung bases. There is peribronchial septal thickening. There is a questionable secretions in the subsegmental pulmonary bronchi both lower lobes. No pleural effusion. No pneumothorax. Nonspecific prominent mediastinal lymph nodes. No pericardial effusion. Small hiatal hernia. There is a 2.5 cm heterogeneous low density nodule in the left adrenal gland which measures 44 Hounsfield units. Multifocal hypodensities in the upper pole both kidneys. Multilevel cervical thoracic and upper lumbar spondylosis. No acute fracture or listhesis in the axial skeleton. No lytic or blastic lesions. CT/CT angio chest aorta IMPRESSION: No aneurysm or dissection, thoracic aorta. Pulmonary edema versus pneumonitis versus multifocal pneumonia. 2.5 cm nodular lesion, left adrenal gland. Fleischner guidelines were followed. Electronically signed by: Chaim Cage MD 09/25/2024 02:11 PM [facility]
--- NOTE | 2024-09-25 11:50 | ECG_ITS ---
Test Reason : jeri Blood Pressure : / mmHG Vent. Rate : 053 BPM Atrial Rate : 053 BPM P-R Int : 154 ms QRS Dur : 078 ms QT Int : 448 ms P-R-T Axes : 030 -17 005 degrees QTc Int : 420 ms Sinus bradycardia Moderate voltage criteria for LVH, may be normal variant ( R in aVL , [place] product ) Borderline ECG When compared with ECG of 27-JUL-2019 11:16, No significant change was found Referred By: Sary Mcfarland Electronically Signed By:Aron Trujillo
[2024-09-25] MEDS: 0.9 % Sodium Chloride 1,000 ML 999 ML IV (12:00)
--- NOTE | 2024-09-25 12:05 | ED_ITS ---
HPI - Syncope General Chief Complaint: General Medical Stated Complaint: lathargy x3d,low bp 76/p, from pcp office per ems Time Seen by Provider: 09/25/24 11:50 Source: patient, family, EMS and american sign language interpreter Mode of arrival: EMS History of Present Illness ED Provider: Cullen VARGAS narrative: 74-year-old female who presents via EMS from doctor's office where she suffered a near syncopal episode and received 1 mg of atropine EN route. Patient states that she has been feeling unwell for proximally 1 week, states that she continues to feel weekend and fatigued and went to her primary care doctor's office where she states that she felt cool and clammy, dizzy, states that everything went black but denies passing out, reports associated nausea with centralized abdominal discomfort. Patient states she currently feels much improved Related Data Home Medications ?Medication ?Instructions ?Recorded ?Confirmed amlodipine 10 mg tablet 10 mg PO BEDTIME 02/08/21 02/14/24 atenolol 50 mg tablet 50 mg PO BEDTIME 02/08/21 02/14/24 atorvastatin 20 mg tablet 20 mg PO BEDTIME 02/08/21 02/14/24 benazepril 40 mg tablet 40 mg PO BEDTIME 02/08/21 02/14/24 fluoxetine 20 mg capsule 20 mg PO BEDTIME 02/08/21 02/14/24 gabapentin 300 mg capsule 600 mg PO BEDTIME 02/08/21 02/14/24 levothyroxine 100 mcg tablet 100 mcg PO MOTUWETHFRSA@0600 02/08/21 02/14/24 acetaminophen 325 mg tablet 650 mg PO Q6H PRN Pain 02/19/23 02/14/24 (Tylenol) allopurinol 100 mg tablet 200 mg PO BEDTIME 02/19/23 02/14/24 levothyroxine 100 mcg tablet 200 mcg PO TURNER@0600 02/19/23 02/14/24 Previous Rx's ?Medication ?Instructions ?Recorded lorazepam 0.5 mg tablet 0.5 mg PO DAILY PRN anxiety #2 tabs 10/16/23 furosemide 20 mg tablet 10 mg (1/2 x 20 mg) PO DAILY 90 07/02/24 days #45 tabs Allergies Allergy/AdvReac Type Severity Reaction Status Date / Time No Known Allergies Allergy Verified 09/25/24 12:06 [No Known Allergies*] Review of Systems 2 Review of Systems: Pertinent positives and negatives as stated in HPI [facility] Past Medical History Medical History Vertebral compression fracture Essential hypertension Non-rheumatic aortic stenosis Chronic diastolic (congestive) heart failure Surgical History History of breast biopsy History of hysterectomy Family History Family History Father Dementia Mother Hypertension Alzheimer disease Social History Social History Alcohol intake: never Patient Tobacco Use Status: Former Tobacco user Smoked in Last 30 Days: No Use of substances other than those prescribed or required for medical reasons: No Advance Directives: No Advance Directives Information Provided: Yes Do you have a plan to hurt others: No Plan Physical Exam 2 Vital Signs: Vital Signs: Last Vital Signs Temp 97.9 F 09/25/24 13:20 Pulse 53 09/25/24 13:20 Resp 16 09/25/24 13:20 BP 130/52 L 09/25/24 13:20 Pulse Ox 92 09/25/24 13:20 O2 Del Method Room Air 09/25/24 13:20 BMI result Body Mass Index 35.2 VITAL SIGNS: Reviewed. GENERAL: Well developed, well nourished, in no acute distress. HEAD: Normocephalic/atraumatic EYES: PERRLA, EOMI EARS: Ext canals without abnormality NOSE: Nares patent bilateral OROPHARYNX: no oral lesions noted, posterior pharynx clear NECK: Supple, no adenopathy LUNGS: Normal breath sounds. No adventitious sounds or accessory muscle use. SpO2<92> CARDIOVASCULAR: Regular rate and rhythm without noted murmurs, no JVD bilateral 1+ pitting edema ABDOMEN: Soft, non-tender, non-distended with bowel sounds. MUSCULOSKELETAL: No tenderness, deformities, or effusions noted on gross inspection. EXTREMITIES: No cyanosis, clubbing or edema. SKIN: Inspection of the skin reveals no rashes NEUROLOGIC: Alert and oriented x 4. Strength and sensation to light touch were grossly intact x 4. Medications Administered Discontinued Medications Generic Name Dose Route Start Last Admin Trade Name Freq PRN Reason Stop Dose Admin Sodium Chloride 1,000 mls @ 999 mls/hr 09/25/24 12:23 09/25/24 13:09 Ns IV 09/25/24 13:23 Infused .Q1H1M ONE Infusion Iohexol 100 ml 09/25/24 13:31 09/25/24 13:32 Iohexol 350 Mg/Ml 100 Ml Infus..Btl IV 09/25/24 13:32 70 ml ONCE ONE Administration Medical Decision Making Medical Decision Making MDM Narrative: Continued to fluid resuscitate, immediate review of EKG did not demonstrate any AV block, appears to be sinus bradycardia without any ST elevation otherwise SD/QRS/QTC are within normal limits. Patient reports taking her home medications at night so has not taken any medication this morning. ED bedside echo, demonstrates good squeeze, RV greater than LV, IVC is collapse, there is no pericardial effusion,AO<4 I reviewed interpreted all investigations there is a mild leukocytosis without anemia or thrombocytopenia. Coagulation studies with INR-1.1. There is noted MORIS with chronically elevated T bili and otherwise no electrolyte derangements, BNP-393 consistent with chest x-ray and clinical findings suggestive of mild pulmonary edema. 1330: Blood pressure continues to improve. 1335: Chest x-ray on my interpretation demonstrates interstitial edema, possibility of infiltrate. CT scan on my interpretation of the head without evidence of intracranial hemorrhage or mass effect, on quick review of CT angio of aorta, there is evidence of interstitial edema, otherwise no evidence to suggest VTE or dissection, infiltrate noted in right lower lobe, will obtain lactic acid and blood cultures. 1358: On re-evaluation patient continues to endorse feeling well, she states that she is hungry, on review of vital signs they are consistently stable. Suspect that patient suffered a near syncopal episode with a sequela combination of bradycardia and hypotension secondary to recent illness and poor hydration. 1415: On re-evaluation patient got up to the bathroom and felt quite unsteady, on return oxygenation was noted to be 90-91% with increased work of breathing. Will treat with Zosyn and 60 mg of Lasix, discussed with the patient and the daughter who is at bedside and they understand that patient will be admitted at this time. I have reached out to the inpatient hospitalist for admission. Differential Diagnosis Differential Diagnoses: The differential diagnosis associated with the presentation includes See the discussion above Admission/Observation Consideration of admission/observation: Escalation of care including admission/observation considered See the discussion above Consult Healthcare Provider Management of the patient was discussed with: Hospitalist Lab Data MDM Lab Attestation statement: I reviewed the patient's lab results. See the discussion above 09/25/24 12:08 09/25/24 12:08 Labs: Lab Results 09/25/24 09/25/24 09/25/24 Range/Units 12:08 12:11 12:30 WBC 12.0 H (4.8-10.8) X10*3/uL RBC 4.96 (4.20-5.50) X10*6/uL Hgb 14.4 (12.0-16.0) g/dl Hct 42.8 (37.0-47.0) % MCV 86.3 (80.0-98.0) fL MCH 29.0 (27.0-33.0) pg MCHC 33.6 (31.0-35.0) g/dl RDW 14.2 (11.0-16.0) % Plt Count 318 (160-400) X10*3/uL MPV 8.3 L (9.4-12.3) fL Immature Gran % (Auto) 0.5 H (0.0-0.4) % Neut % (Auto) 69.0 (45-73) % Lymph % (Auto) 20.3 (20-40) % [place] % (Auto) 8.6 (2-11) % Eos % (Auto) 1.0 (0-4) % Baso % (Auto) 0.6 (0-2) % Lymph # (Auto) 2.4 (1.2-4.9) X10*3/uL [place] # (Auto) 1.0 (0.1-1.2) X10*3/uL Eos # (Auto) 0.1 (0.0-0.4) X10*3/uL Baso # (Auto) 0.1 (0.0-0.2) X10*3/uL Abs Immat Gran (auto) 0.06 H (0.00-0.03) X10*3/uL Absolute Neuts (auto) 8.3 (2.0-8.3) x10*3/uL Absolute Nucleated RBC 0.000 (0.0-0.012) X10*3/uL Nucleated RBC % (auto) 0.0 (0.0-0.2) /100WBC PT 12.7 H (10.9-12.4) SEC INR 1.1 (0.9-1.1) Sodium 138 (135-145) mmol/L Potassium 4.1 (3.3-5.1) mmol/L Chloride 104 (96-108) mmol/L Carbon Dioxide 23 (22-29) mmol/L Anion Gap 15 (12-20) BUN 21 H (9-16) mg/dL Creatinine 1.45 H (0.5-1.4) mg/dL Estim Creat Clear Calc 34.3 Estimated GFR 35 Random Glucose 120 H (60-115) mg/dL Calcium 10.2 (8.4-10.2) mg/dL Magnesium 2.0 (1.6-2.6) mg/dL Total Bilirubin 1.1 H (0.0-1.0) mg/dL AST 34 H (5-31) U/L ALT 28 (0-31) U/L Alkaline Phosphatase 103 (39-117) U/L Troponin I High Sens 16.7 (<3.5-17.0) ng/L B-Natriuretic Peptide 393 H (<100) pg/mL Total Protein 7.3 (6.5-8.0) g/dL Albumin 4.0 (3.5-5.0) g/dL Influenza Type A (PCR) NEGATIVE (Negative) Influenza Type B (PCR) NEGATIVE (Negative) RSV RNA Qual (PCR) NEGATIVE (Negative) SARS-CoV-2 RNA (RT-PCR) NEGATIVE (Negative) Independent Interpretation I performed an independent interpretation of an: EKG Interpretation: See discussion above Radiology Impression Discussion of test interpretation with radiology: I have reviewed the radiologist's reading. Radiologist Impression: See the discussion above External Record Review External record reviewed: Inpatient record, Outpatient record and Outside ED record Chronic Conditions Patient?s care impacted by: Other CHF Critical Care Time Critical Care Time Critical Care Time: Yes Total Critical Care Time: 60 Attestation: I personally attest to this time spent taking care of the patient. Discharge Plan Discharge Clinical Impression: Vasovagal near syncope, CHF exacerbation, Hypoxia, MORIS (acute kidney injury) Patient Disposition: Admitted As Inpatient Prescriptions: No Action lorazepam 0.5 mg tablet 0.5 mg PO DAILY PRN (Reason: anxiety) Qty: 2 0RF furosemide 20 mg tablet 10 mg PO DAILY 90 Days Qty: 45 1RF acetaminophen [Tylenol] 325 mg Tablet 650 mg PO Q6H PRN (Reason: Pain) allopurinol 100 mg tablet 200 mg PO BEDTIME levothyroxine 100 mcg tablet 200 mcg PO TURNER@0600 fluoxetine 20 mg capsule 20 mg PO BEDTIME benazepril 40 mg tablet 40 mg PO BEDTIME atorvastatin 20 mg tablet 20 mg PO BEDTIME levothyroxine 100 mcg tablet 100 mcg PO MOTUWETHFRSA@0600 amlodipine 10 mg tablet 10 mg PO BEDTIME atenolol 50 mg tablet 50 mg PO BEDTIME gabapentin 300 mg capsule 600 mg PO BEDTIME Print Language: Thai
[2024-09-25 12:14] LABS: MANUAL DIFF FLAG NO
[2024-09-25 12:20] LABS: Basophils Absolute Auto 0.1 X10*3/uL (0.0-0.2); Basophils Percent Auto 0.6 % (0-2); Eosinophils Absolute Auto 0.1 X10*3/uL (0.0-0.4); Hematocrit 42.8 % (37.0-47.0); Hemoglobin 14.4 g/dl (12.0-16.0); Imm Gran Abs Auto 0.06 X10*3/uL (0.00-0.03); Imm Gran Pct Auto 0.5 % (0.0-0.4); Lymphocytes Absolute Auto 2.4 X10*3/uL (1.2-4.9); Lymphocytes Percent Auto 20.3 % (20-40); Mean Corpuscular HGB Conc 33.6 g/dl (31.0-35.0); Mean Corpuscular Volume 86.3 fL (80.0-98.0); Mean Platelet Volume 8.3 fL (9.4-12.3); Monocytes Percent Auto 8.6 % (2-11); Neutrophils Absolute Auto 8.3 x10*3/uL (2.0-8.3); Platelet Count 318 X10*3/uL (160-400); Red Blood Count 4.96 X10*6/uL (4.20-5.50); Red Cell Distribution Width 14.2 % (11.0-16.0)
[2024-09-25 12:32] LABS: Alanine Aminotransferase 28 U/L (0-31); Alkaline Phosphatase 103 U/L (39-117); Anion Gap 15 (12-20); Aspartate Amino Transferase 34 U/L (5-31); Bilirubin Total 1.1 mg/dL (0.0-1.0); Blood Urea Nitrogen 21 mg/dL (9-16); Calcium 10.2 mg/dL (8.4-10.2); Carbon Dioxide 23 mmol/L (22-29); Chloride 104 mmol/L (96-108); Creatinine Clr Calc Pharmacy 34.3; Estimated Glomerular Filt Rate 35; Glucose Random 120 mg/dL (60-115); Potassium 4.1 mmol/L (3.3-5.1); Sodium 138 mmol/L (135-145); Total Protein 7.3 g/dL (6.5-8.0)
[2024-09-25 12:36] LABS: B Type Natriuretic Peptide 393 pg/mL (<100)
[2024-09-25 12:39] LABS: Troponin-I High Sensitivity 16.7 ng/L (<3.5-17.0)
[2024-09-25 12:40] LABS: INTERNATIONAL NORM RATIO 1.1 (0.9-1.1); Prothrombin Time 12.7 SEC (10.9-12.4)
[2024-09-25 13:02] LABS: Influenza A PCR NEGATIVE (Negative); Influenza B PCR NEGATIVE (Negative); Resp Syncy Virus RNA Qual PCR NEGATIVE (Negative); SARS COV2 PCR INHOUSE NEGATIVE (Negative)
[2024-09-25] MEDS: iohexoL 350 MG/ML 100 ML INFUS..BTL IV (13:32)
[2024-09-25 14:35] LABS: Lactic Acid 2.3 mmol/L (0.5-2.0)
[2024-09-25] MEDS: Furosemide 100 MG/10 ML VIAL 60 MG IVPUSH (15:09)
[2024-09-25] MEDS: Piperacillin Sodium/Tazobactam 3.375 GM in 0.9 % Sodium Chloride 50 ML IV (15:09)
--- NOTE | 2024-09-25 15:26 | P.HPHOSP_ITS ---
History of Present Illness Date of Service: 09/25/24 Attending physician on admission: Kadie Rivera Chief Complaint: near syncope Patient is a 74-year-old female with a medical history significant for diastolic CHF, HTN, nonrheumatic aortic stenosis, HLD, hypothyroid, GERD, and gout, who presented to the near syncopal episode while at her PCP's office. Her blood pressure was very low, 80/palp by EMS, and she was given 1 mg atropine and a 400ml bolus of NS. She reports dizziness and weakness for the past week. No measured fever but has felt warm and chills. Also complains of phlegm and nonproductive cough for the past week. Weakness was much worse this morning and she had plan to see her PCP today. No increased dyspnea with exertion or lower extremity edema over the past week. No recent sick contacts. No nasal congestion, sore throat, nausea, vomiting or headache. Review of Systems 2 Constitutional: Constitutional: Denies body ache(s), Reports chills, Reports fatigue and Denies headache(s) Eyes: Eyes: Denies blurry vision and Denies change in vision ENT: Denies headache(s), Denies nasal congestion, Denies nasal discharge and Denies sore throat Cardiovascular: Cardiovascular: Reports as per HPI, Denies chest pain, Denies rapid heart rate, Denies leg edema and Denies dyspnea Respiratory: Respiratory: Reports chest congestion and Denies dyspnea Gastrointestinal: Gastrointestinal: Denies constipation, Denies diarrhea, Denies nausea and Denies vomiting Genitourinary: Genitourinary: Denies dysuria Musculoskeletal: Musculoskeletal: Denies myalgias Integumentary/Breasts: Skin/Breast: Denies rash Neurologic: Denies confusion and Denies headache(s) Psychiatric: Psychiatric: Denies confusion Endocrine: Endocrine: Reports fatigue PMFSH Medical History Vertebral compression fracture Essential hypertension Non-rheumatic aortic stenosis Chronic diastolic (congestive) heart failure Family History Father Dementia Mother Hypertension Alzheimer disease Surgical History History of breast biopsy History of hysterectomy Social History Household Members: Family Housing: House Do you presently have visiting nurse or other home services: No Alcohol intake: never Patient Tobacco Use Status: Former Tobacco user Smoked in Last 30 Days: No Use of substances other than those prescribed or required for medical reasons: No Currently Displaying Signs/Symptoms of Drug Intoxication Withdrawal: No Have you been hit, kicked, punched, or otherwise hurt by someone within the past year? If so, by whom?: No Is there a partner from a previous relationship who is making you feel unsafe now?: No Are you made to feel afraid or neglected: No Advance Directives: No Advance Directives Information Provided: Yes Do you have a plan to hurt others: No Plan Recently lost weight without trying: No Patient : No service: No Meds Allergies Allergy/AdvReac Type Severity Reaction Status Date / Time No Known Allergies Allergy Verified 09/25/24 12:06 [No Known Allergies*] Home Medications ?Medication ?Instructions ?Recorded ?Confirmed ?Last Taken ?Type amlodipine 10 mg tablet 10 mg PO BEDTIME 02/08/21 09/25/24 09/24/24 History atenolol 50 mg tablet 50 mg PO BEDTIME 02/08/21 09/25/24 09/24/24 History atorvastatin 20 mg tablet 20 mg PO BEDTIME 02/08/21 09/25/24 09/24/24 History benazepril 40 mg tablet 40 mg PO BEDTIME 02/08/21 09/25/24 09/24/24 History fluoxetine 20 mg capsule 20 mg PO BEDTIME 02/08/21 09/25/24 09/24/24 History gabapentin 300 mg capsule 600 mg PO BEDTIME 02/08/21 09/25/24 09/24/24 History levothyroxine 100 mcg tablet 100 mcg PO MOTUWETHFRSA@0600 02/08/21 09/25/24 09/25/24 History acetaminophen 325 mg tablet 650 mg PO Q6H PRN Pain 02/19/23 09/25/24 09/24/24 History (Tylenol) allopurinol 100 mg tablet 200 mg PO BEDTIME 02/19/23 09/25/24 09/24/24 History levothyroxine 100 mcg tablet 200 mcg PO TURNER@0600 02/19/23 09/25/24 09/22/24 History Physical Exam 2 Vital Signs and Narrative: Vital Signs: Last Vital Signs Temp 97.9 F 09/25/24 13:20 Pulse 53 09/25/24 13:20 Resp 16 09/25/24 13:20 BP 136/41 L 09/25/24 15:09 Pulse Ox 92 09/25/24 13:20 O2 Del Method Room Air 09/25/24 13:20 BMI result Body Mass Index 35.2 General: AOx3, no acute distress, seen with daughter Betty Dueñas bedside who helps interpret Resp: crackles in lower lung bases bilaterally, no wheezing CVS: S1, S2, RRR GI: +BS, NT, no distention Skin: Warm, dry Extremities: No LE edema Psych: Appropriate affect Const: General: No confusion Orientation/consciousness: No confusion Neuro: General: No confusion Results Labs 09/27/24 07:39 09/27/24 07:39 Labs: Laboratory Results - last 24 hr 09/25/24 09/25/24 09/25/24 12:08 12:11 12:30 MCV 86.3 MCH 29.0 MCHC 33.6 RDW 14.2 Plt Count 318 MPV 8.3 L Immature Gran % (Auto) 0.5 H Neut % (Auto) 69.0 Lymph % (Auto) 20.3 [place] % (Auto) 8.6 Eos % (Auto) 1.0 Baso % (Auto) 0.6 Lymph # (Auto) 2.4 [place] # (Auto) 1.0 Eos # (Auto) 0.1 Baso # (Auto) 0.1 Abs Immat Gran (auto) 0.06 H Absolute Neuts (auto) 8.3 Absolute Nucleated RBC 0.000 Nucleated RBC % (auto) 0.0 PT 12.7 H INR 1.1 Anion Gap 15 Estim Creat Clear Calc 34.3 Estimated GFR 35 Random Glucose 120 H Lactic Acid Calcium 10.2 Magnesium 2.0 Total Bilirubin 1.1 H AST 34 H ALT 28 Alkaline Phosphatase 103 Troponin I High Sens 16.7 B-Natriuretic Peptide 393 H Total Protein 7.3 Albumin 4.0 Influenza Type A (PCR) NEGATIVE Influenza Type B (PCR) NEGATIVE RSV RNA Qual (PCR) NEGATIVE SARS-CoV-2 RNA (RT-PCR) NEGATIVE 09/25/24 14:08 MCV MCH MCHC RDW Plt Count MPV Immature Gran % (Auto) Neut % (Auto) Lymph % (Auto) [place] % (Auto) Eos % (Auto) Baso % (Auto) Lymph # (Auto) [place] # (Auto) Eos # (Auto) Baso # (Auto) Abs Immat Gran (auto) Absolute Neuts (auto) Absolute Nucleated RBC Nucleated RBC % (auto) PT INR Anion Gap Estim Creat Clear Calc Estimated GFR Random Glucose Lactic Acid 2.3 H* Calcium Magnesium Total Bilirubin AST ALT Alkaline Phosphatase Troponin I High Sens B-Natriuretic Peptide Total Protein Albumin Influenza Type A (PCR) Influenza Type B (PCR) RSV RNA Qual (PCR) SARS-CoV-2 RNA (RT-PCR) Imaging Radiologist's Impressions: Impressions Chest X-Ray 09/25/24 12:06 IMPRESSION: Unremarkable examination. Electronically signed by: Charity Ku MD 09/25/2024 03:10 PM EST RP Head CT 09/25/24 12:40 IMPRESSION: No acute intracranial hemorrhage or acute brain abnormality by CT. Electronically signed by: Chaim Cage MD 09/25/2024 02:16 PM EST RP Chest CTA 09/25/24 12:45 IMPRESSION: No aneurysm or dissection, thoracic aorta. Pulmonary edema versus pneumonitis versus multifocal pneumonia. 2.5 cm nodular lesion, left adrenal gland. Fleischner guidelines were followed. Electronically signed by: Chaim Cage MD 09/25/2024 02:11 PM EST RP Assessment and Plan (1) Near syncope: Status: Acute (2) Pneumonia: Status: Acute (3) MORIS (acute kidney injury): Status: Acute (4) Obesity, class 2: Status: Chronic Plan Patient is a 74-year-old female with a medical history significant for diastolic CHF, HTN, nonrheumatic aortic stenosis, HLD, hypothyroid, GERD, and gout, who presented to the near syncopal episode while at her PCP's office. Blood pressures have been low, but responsive to IV fluids. Head CT negative. CTA with pulmonary edema versus pneumonitis versus multifocal pneumonia. WBC 12.0, lactic 2.3, BNP 393, creatinine 1.45. She was given 60 mg of Lasix in ED as well as 1 L of fluids. Prophylactically treated for pneumonia with Zosyn. Near-syncope secondary to hypotension on multiple BP meds - hypotensive, responsive to fluids - given Lasix 60 mg in ED, will hold off any further diuretics at this time - Head CT negative - EKG sinus bradycardia, troponin negative - hold amlodipine, atenolol, benazepril, furosemide - monitor CBC, BNP and BMP Pneumonia - CTA with pulmonary edema versus pneumonitis versus multifocal pneumonia - patient given Zosyn in ED, will continue prophylactic treatment with ceftriaxone and doxycycline - no sepsis, elevated lactic acid likely due to hypoperfusion, mild leukocytosis, WBC 12.0, likely reactive, blood cultures x2 pending - flu/COVID/RSV negative MORIS - likely ATN - hold allopurinol, furosemide, atorvastatin and benazepri - monitor BMP HTN - see above Hypothyroid - continue levothyroxine GERD - continue omeprazole Full code VTE prophylaxis: Lovenox Patient with near syncopal episode secondary to acute CHF exacerbation and MORIS, complicated by hypotension, requiring admission for IV diuresis and monitoring for at least 2 midnights stay Quality Stroke Does the patient have a stroke diagnosis?: No VTE Prior VTE?: No VTE Risk Level:: Medical - moderate - high VTE Device Contraindication: Treatment Not Indicated VTE Drug Contraindication: N/A - Med Ordered
[2024-09-25 16:04] LABS: Appearance Urine Cloudy; Color Urine Yellow; Glucose Urine UA Negative (Negative); Leukocyte Esterase Urine Moderate (2+) (Negative); Nitrite Urine Negative (Negative); PH 6.5 (5.0-9.0); Specific Gravity - Urine >= 1.030 (1.005-1.025); UMIC TRIGGER UACC YES; Urine Blood Negative (Negative); Urine Ketones Negative (Negative); Urine Protein Trace mg/dL (Neg-Trace)
[2024-09-25 16:14] LABS: Reflex Lactate? Lactic Acid Added
[2024-09-25 16:19] LABS: Bacteria Urine 1+ (None Seen); Hyaline Casts Urine 0-2 /LPF (0-2); RBC Urine 0-2 /HPF (0-2); UACC Culture Trigger YES; WBC Urine 21-50 /HPF (0-5)
[2024-09-25] MEDS: Enoxaparin Sodium 40 MG/0.4 ML SYRINGE SUBCUT (16:41)
--- NOTE | 2024-09-25 16:41 | PHA.MEDREC ---
Addendum entered by Librado Cornell 09/25/24 16:49: reviewed Original Note: Pharmacy Consult ? Medication Reconciliation Pharmacy has completed the medication reconciliation. Confirmed medications with patient, patient daughter at bedside and Rx Bottles. Patient daughter was able to confirm that her mom just saw her PCP today and that they had sent Azithromycin 250mg and Omeprazole 20mg tabs to her mom pharmacy and they have not been able to pick those up due to her mom coming right from her Dr. Linarest. The daughter also confirmed that her mom takes Lorazepam 0.5mg tabs only when she travels/fly on a plane or goes to get an MRI. The patient was able to confirm she took her Levothroyxine 100mcg tab this morning and took 200mcg on Saturday 09/22, she states she took all her other medications yesterday.
[2024-09-25] MEDS: cefTRIAXone sodium 1 GM VIAL IV (16:42)
--- NOTE | 2024-09-25 19:22 | PC.NURSE ---
Assumed care of pt.
[2024-09-25] MEDS: Doxycycline Hyclate 100 MG in 0.9 % Sodium Chloride 250 ML 166.67 MG IV (20:29)
[2024-09-26] VITALS (8 sets, daily range): BP systolic 137–168; BP diastolic 54–73; PULSE 54–76; RESP 16–20; TEMP 36.4–37.1; O2SAT 93–96; BMI 35.8
[2024-09-26 06:45] LABS: MANUAL DIFF FLAG NO
[2024-09-26 06:54] LABS: Basophils Absolute Auto 0.1 X10*3/uL (0.0-0.2); Basophils Percent Auto 0.5 % (0-2); Eosinophils Absolute Auto 0.3 X10*3/uL (0.0-0.4); Eosinophils Percent Auto 2.7 % (0-4); Hematocrit 37.3 % (37.0-47.0); Hemoglobin 12.3 g/dl (12.0-16.0); Imm Gran Abs Auto 0.03 X10*3/uL (0.00-0.03); Imm Gran Pct Auto 0.3 % (0.0-0.4); Lymphocytes Absolute Auto 2.7 X10*3/uL (1.2-4.9); Lymphocytes Percent Auto 27.3 % (20-40); Mean Corpuscular Hemoglobin 28.2 pg (27.0-33.0); Mean Corpuscular Volume 85.6 fL (80.0-98.0); Mean Platelet Volume 8.6 fL (9.4-12.3); Monocytes Absolute Auto 0.8 X10*3/uL (0.1-1.2); Monocytes Percent Auto 8.4 % (2-11); Neutrophils Absolute Auto 6.1 x10*3/uL (2.0-8.3); Neutrophils Percent Auto 60.8 % (45-73); Platelet Count 275 X10*3/uL (160-400); Red Blood Count 4.36 X10*6/uL (4.20-5.50); Red Cell Distribution Width 14.3 % (11.0-16.0); White Blood Count 9.9 X10*3/uL (4.8-10.8)
[2024-09-26 07:11] LABS: Anion Gap 14 (12-20); Blood Urea Nitrogen 21 mg/dL (9-16); Calcium 9.7 mg/dL (8.4-10.2); Carbon Dioxide 25 mmol/L (22-29); Chloride 104 mmol/L (96-108); Creatinine Clr Calc Pharmacy 39.3; Estimated Glomerular Filt Rate 41; Glucose Random 100 mg/dL (60-115); Potassium 3.9 mmol/L (3.3-5.1); Sodium 139 mmol/L (135-145)
[2024-09-26 07:13] LABS: B Type Natriuretic Peptide 193 pg/mL (<100)
[2024-09-26] MEDS: Doxycycline Hyclate 100 MG in 0.9 % Sodium Chloride 250 ML 166.67 MG IV ×2 (08:48→20:57)
--- NOTE | 2024-09-26 10:52 | MHC.CM.PN ---
IMM 09/26. This CM met with pt with the assistance of a set up / operator. Pt lives at home with her 2 brothers. Pt uses a cane and a walker. pts daughter or brother will transport her home at discharge. New HCP completed with pt, now on file. PCP: Dr. Ilia Cates
--- NOTE | 2024-09-26 10:58 | P.PNIM_ITS ---
Subjective Subjective Date of Service: 09/26/24 Interval History: Patient with possible pneumonia and near syncopal episode yesterday with hypotension Feeling better today, shortness of breath improved, no dizziness or syncopal episodes since solitary episode yesterday. No headache, runny nose, congestion, or lower extremity edema. Has been able to bring up yellow sputum with cough. Constitutional Constitutional: Denies chills, Denies fever(s), Denies headache(s) and Denies weakness Eyes Eyes: Denies blurry vision and Denies change in vision ENT Ears, Nose, Mouth, and Throat: Denies headache(s), Denies nasal congestion and Denies nasal discharge Cardiovascular Cardiovascular: Denies chest pain, Denies rapid heart rate, Denies leg edema and Denies dyspnea Respiratory Respiratory: Reports cough, Denies hemoptysis and Denies dyspnea Gastrointestinal Gastrointestinal: Denies constipation, Denies diarrhea, Denies nausea and Denies vomiting Genitourinary Genitourinary: Denies dysuria and Denies urinary urgency Musculoskeletal Musculoskeletal: Denies myalgias and Denies muscle weakness Integumentary/Breasts Skin/Breast: Denies rash Neurologic Neurologic: Denies confusion, Denies headache(s) and Denies weakness Psychiatric Psychiatric: Denies confusion Physical Exam 2 Vital Signs: Vital Signs: Last Vital Signs Temp 97.5 F 09/26/24 07:54 Pulse 59 09/26/24 07:54 Resp 20 09/26/24 07:54 BP 144/68 H 09/26/24 07:54 Pulse Ox 93 09/26/24 07:54 O2 Del Method Room Air 09/26/24 07:54 BMI result Body Mass Index 35.8 General: AOx3, no acute distress Resp: Crackles bilateral lower lungs, no wheezing CVS: RRR, murmur GI: +BS, NT, no distention Skin: Warm, dry Extremities: No edema Psych: Appropriate affect Const: General: No confusion Orientation/consciousness: No confusion Neuro: General: No confusion Objective Data Active Medications Acetaminophen (Acetaminophen 325 Mg Tablet) 650 mg PO Q6H PRN PRN Reason: Pain, Mild (Pain Scale 1-3), fever or headache Amlodipine Besylate (Amlodipine Besylate 5 Mg Tablet) 5 mg PO DAILY BRENDA; Protocol Atenolol (Atenolol 25 Mg Tablet) 25 mg PO DAILY BRENDA; Protocol Calcium Carbonate (Calcium Carbonate 750 Mg Tab.Chew) 750 mg PO Q4H PRN PRN Reason: Heartburn Ceftriaxone Sodium (Ceftriaxone Sodium 1 Gm Vial) 1 gm IV Q24H [facility] Last Admin: 09/25/24 16:42 Dose: 1 gm Documented By: DEMARCUS Enoxaparin Sodium (Enoxaparin Sodium 40 Mg/0.4 Ml Syringe) 40 mg SUBCUT Q24H [facility] Last Admin: 09/25/24 16:41 Dose: 40 mg Documented By: DEMARCUS Fluoxetine HCl (Fluoxetine Hcl 20 Mg Capsule) 20 mg PO BEDTIME BRENDA Gabapentin (Gabapentin 300 Mg Capsule) 600 mg PO BEDTIME BRENDA Doxycycline Hyclate 100 mg/ (Sodium Chloride) 250 mls @ 166.67 mls/hr IV BID [facility] Last Admin: 09/26/24 08:48 Dose: 166.67 mls/hr Documented By: CORINNE Levothyroxine Sodium (Levothyroxine Sodium 200 Mcg Tablet) 200 mcg PO TURNER@0600 [facility] Levothyroxine Sodium (Levothyroxine Sodium 100 Mcg Tablet) 100 mcg PO MOTUWETHFRSA@0600 [facility] Magnesium Hydroxide (Milk Of Magnesia 30 Ml Oral.Susp) 30 ml PO DAILY PRN PRN Reason: Constipation Melatonin (Melatonin 3 Mg Tablet) 6 mg PO BEDTIME PRN PRN Reason: Insomnia Ondansetron HCl (Ondansetron Hcl 4 Mg/2 Ml Vial) 4 mg IVPUSH Q8H PRN PRN Reason: Nausea and Vomiting Labs 09/26/24 06:03 09/26/24 06:03 Labs: Laboratory Results - last 24 hr 09/25/24 09/25/24 09/25/24 12:08 12:11 12:30 MCV 86.3 MCH 29.0 MCHC 33.6 RDW 14.2 Plt Count 318 MPV 8.3 L Immature Gran % (Auto) 0.5 H Neut % (Auto) 69.0 Lymph % (Auto) 20.3 [place] % (Auto) 8.6 Eos % (Auto) 1.0 Baso % (Auto) 0.6 Lymph # (Auto) 2.4 [place] # (Auto) 1.0 Eos # (Auto) 0.1 Baso # (Auto) 0.1 Abs Immat Gran (auto) 0.06 H Absolute Neuts (auto) 8.3 Absolute Nucleated RBC 0.000 Nucleated RBC % (auto) 0.0 PT 12.7 H INR 1.1 Anion Gap 15 Estim Creat Clear Calc 34.3 Estimated GFR 35 Random Glucose 120 H Lactic Acid Lactic Acid F/U @ 2Hr Calcium 10.2 Magnesium 2.0 Total Bilirubin 1.1 H AST 34 H ALT 28 Alkaline Phosphatase 103 Troponin I High Sens 16.7 B-Natriuretic Peptide 393 H Total Protein 7.3 Albumin 4.0 Urine Color Urine Appearance Urine pH Ur Specific [place] Urine Protein Urine Glucose (UA) Urine Ketones Urine Blood Urine Nitrite Ur Leukocyte Esterase Urine RBC Urine WBC Ur Squamous Epith Cells Urine Bacteria Hyaline Casts Influenza Type A (PCR) NEGATIVE Influenza Type B (PCR) NEGATIVE RSV RNA Qual (PCR) NEGATIVE SARS-CoV-2 RNA (RT-PCR) NEGATIVE 09/25/24 09/25/24 09/25/24 14:08 15:55 16:48 MCV MCH MCHC RDW Plt Count MPV Immature Gran % (Auto) Neut % (Auto) Lymph % (Auto) [place] % (Auto) Eos % (Auto) Baso % (Auto) Lymph # (Auto) [place] # (Auto) Eos # (Auto) Baso # (Auto) Abs Immat Gran (auto) Absolute Neuts (auto) Absolute Nucleated RBC Nucleated RBC % (auto) PT INR Anion Gap Estim Creat Clear Calc Estimated GFR Random Glucose Lactic Acid 2.3 H* Lactic Acid F/U @ 2Hr 2.0 Calcium Magnesium Total Bilirubin AST ALT Alkaline Phosphatase Troponin I High Sens B-Natriuretic Peptide Total Protein Albumin Urine Color Yellow Urine Appearance Cloudy Urine pH 6.5 Ur Specific [place] >= 1.030 H Urine Protein Trace Urine Glucose (UA) Negative Urine Ketones Negative Urine Blood Negative Urine Nitrite Negative Ur Leukocyte Esterase Moderate (2+) H Urine RBC 0-2 Urine WBC 21-50 H Ur Squamous Epith Cells 11-20 Urine Bacteria 1+ Hyaline Casts 0-2 Influenza Type A (PCR) Influenza Type B (PCR) RSV RNA Qual (PCR) SARS-CoV-2 RNA (RT-PCR) 09/26/24 06:03 MCV 85.6 MCH 28.2 MCHC 33.0 RDW 14.3 Plt Count 275 MPV 8.6 L Immature Gran % (Auto) 0.3 Neut % (Auto) 60.8 Lymph % (Auto) 27.3 [place] % (Auto) 8.4 Eos % (Auto) 2.7 Baso % (Auto) 0.5 Lymph # (Auto) 2.7 [place] # (Auto) 0.8 Eos # (Auto) 0.3 Baso # (Auto) 0.1 Abs Immat Gran (auto) 0.03 Absolute Neuts (auto) 6.1 Absolute Nucleated RBC 0.000 Nucleated RBC % (auto) 0.0 PT INR Anion Gap 14 Estim Creat Clear Calc 39.3 Estimated GFR 41 Random Glucose 100 Lactic Acid Lactic Acid F/U @ 2Hr Calcium 9.7 Magnesium Total Bilirubin AST ALT Alkaline Phosphatase Troponin I High Sens B-Natriuretic Peptide 193 H Total Protein Albumin Urine Color Urine Appearance Urine pH Ur Specific [place] Urine Protein Urine Glucose (UA) Urine Ketones Urine Blood Urine Nitrite Ur Leukocyte Esterase Urine RBC Urine WBC Ur Squamous Epith Cells Urine Bacteria Hyaline Casts Influenza Type A (PCR) Influenza Type B (PCR) RSV RNA Qual (PCR) SARS-CoV-2 RNA (RT-PCR) Assessment and Plan (1) Near syncope: Status: Acute (2) Pneumonia: Status: Acute (3) Chronic diastolic (congestive) heart failure: Status: Acute (4) MORIS (acute kidney injury): Status: Acute (5) Obesity, class 2: Status: Chronic Plan Patient is a 74-year-old female with a medical history significant for diastolic CHF, HTN, non-rheumatic aortic stenosis, HLD, hypothyroid, GERD, and gout, who presented to the near syncopal episode and hypotension, diagnosed with MORIS and possible multifocal pneumonia Near-syncope secondary to hypotension - blood pressures improved - continue to hold benazepril and furosemide, we will restart atenolol at 1/2 dose, 25 mg and amlodipine at 1/2 dose, 5 mg - tele with sinus bradycardia - cardiology consult - monitor BMP ?Multifocal pneumonia - no sepsis, hypotension secondary to multiple BP meds - continue prophylactic treatment with ceftriaxone and doxycycline - leukocytosis improved, blood cultures x2 pending - monitor CBC MORIS - likely ATN, improved - continue to hold allopurinol, furosemide, atorvastatin and benazepril - UA with 1+ bacteria, antibiotics as above, urine culture pending - monitor BMP HTN - BP meds as above Hypothyroid - continue levothyroxine GERD - continue omeprazole Full code VTE prophylaxis: Lovenox Patient with near syncopal episode secondary to hypotension and possible multifocal pneumonia complicated by MORIS, requiring continued admission for IV antibiotics and reintroduction of blood pressure meds. Quality Stroke Does the patient have a stroke diagnosis?: No VTE Prior VTE?: No VTE Risk Level:: Medical - moderate - high VTE Device Contraindication: Treatment Not Indicated VTE Drug Contraindication: N/A - Med Ordered
[2024-09-26] MEDS: amLODIPine Besylate 5 MG TABLET PO (11:17)
[2024-09-26] MEDS: atenoloL 25 MG TABLET PO (11:18)
--- NOTE | 2024-09-26 14:41 | P.CONCA_ITS ---
History of Present Illness History of Present Illness Date of Service: 09/26/24 Requesting physician: Tasia Jansen Chief complaint: Near syncope, pneumonia Narrative: [age] year female we have been asked to see for near syncope. She has not feeling well for few days and went to see her primary care physician. While she was there she felt very weak and had a near syncopal episode. She was sent to the emergency department. She was noticed to be hypotensive. She had workup done which has revealed infection/pneumonia and she is on antibiotics. Clinically she does not have any heart failure symptoms. She was coughing and had chills with feeling generally unwell at home. Her blood pressure has recovered at this point and her medications have been resumed at lower dose. Atenolol starting at 25 mg and amlodipine 5 mg. Her Lasix and benazepril are on hold. [facility] Past Medical History Medical History Vertebral compression fracture Essential hypertension Non-rheumatic aortic stenosis Chronic diastolic (congestive) heart failure Family History Family History Father Dementia Mother Hypertension Alzheimer disease Surgical History Surgical History History of breast biopsy History of hysterectomy Social History Social History Household Members: Family Housing: House Do you presently have visiting nurse or other home services: No Alcohol intake: never Patient Tobacco Use Status: Former Tobacco user Smoked in Last 30 Days: No Use of substances other than those prescribed or required for medical reasons: No Currently Displaying Signs/Symptoms of Drug Intoxication Withdrawal: No Have you been hit, kicked, punched, or otherwise hurt by someone within the past year? If so, by whom?: No Is there a partner from a previous relationship who is making you feel unsafe now?: No Are you made to feel afraid or neglected: No Advance Directives: No Advance Directives Information Provided: Yes Do you have a plan to hurt others: No Plan Recently lost weight without trying: No Patient : No service: No Meds Allergies Allergy/AdvReac Type Severity Reaction Status Date / Time No Known Allergies Allergy Verified 09/25/24 12:06 [No Known Allergies*] Active Medications: Current Medications Acetaminophen (Acetaminophen 325 Mg Tablet) 650 mg PO Q6H PRN PRN Reason: Pain, Mild (Pain Scale 1-3), fever or headache Amlodipine Besylate (Amlodipine Besylate 5 Mg Tablet) 5 mg PO DAILY [facility]; Protocol Last Admin: 09/26/24 11:17 Dose: 5 mg Atenolol (Atenolol 25 Mg Tablet) 25 mg PO DAILY [facility]; Protocol Last Admin: 09/26/24 11:18 Dose: 25 mg Calcium Carbonate (Calcium Carbonate 750 Mg Tab.Chew) 750 mg PO Q4H PRN PRN Reason: Heartburn Ceftriaxone Sodium (Ceftriaxone Sodium 1 Gm Vial) 1 gm IV Q24H [facility] Last Admin: 09/25/24 16:42 Dose: 1 gm Enoxaparin Sodium (Enoxaparin Sodium 40 Mg/0.4 Ml Syringe) 40 mg SUBCUT Q24H [facility] Last Admin: 09/25/24 16:41 Dose: 40 mg Fluoxetine HCl (Fluoxetine Hcl 20 Mg Capsule) 20 mg PO BEDTIME [facility] Gabapentin (Gabapentin 300 Mg Capsule) 600 mg PO BEDTIME [facility] Doxycycline Hyclate 100 mg/ (Sodium Chloride) 250 mls @ 166.67 mls/hr IV BID [facility] Last Infusion: 09/26/24 11:16 Dose: Infused Levothyroxine Sodium (Levothyroxine Sodium 200 Mcg Tablet) 200 mcg PO TURNER@0600 [facility] Levothyroxine Sodium (Levothyroxine Sodium 100 Mcg Tablet) 100 mcg PO MOTUWETHFRSA@0600 [facility] Magnesium Hydroxide (Milk Of Magnesia 30 Ml Oral.Susp) 30 ml PO DAILY PRN PRN Reason: Constipation Melatonin (Melatonin 3 Mg Tablet) 6 mg PO BEDTIME PRN PRN Reason: Insomnia Ondansetron HCl (Ondansetron Hcl 4 Mg/2 Ml Vial) 4 mg IVPUSH Q8H PRN PRN Reason: Nausea and Vomiting Home Medications ?Medication ?Instructions ?Recorded ?Confirmed ?Last Taken ?Type amlodipine 10 mg tablet 10 mg PO BEDTIME 02/08/21 09/25/24 09/24/24 History atenolol 50 mg tablet 50 mg PO BEDTIME 02/08/21 09/25/24 09/24/24 History atorvastatin 20 mg tablet 20 mg PO BEDTIME 02/08/21 09/25/24 09/24/24 History benazepril 40 mg tablet 40 mg PO BEDTIME 02/08/21 09/25/24 09/24/24 History fluoxetine 20 mg capsule 20 mg PO BEDTIME 02/08/21 09/25/24 09/24/24 History gabapentin 300 mg capsule 600 mg PO BEDTIME 02/08/21 09/25/24 09/24/24 History levothyroxine 100 mcg tablet 100 mcg PO MOTUWETHFRSA@0600 02/08/21 09/25/24 09/25/24 History acetaminophen 325 mg tablet 650 mg PO Q6H PRN Pain 02/19/23 09/25/24 09/24/24 History (Tylenol) allopurinol 100 mg tablet 200 mg PO BEDTIME 02/19/23 09/25/24 09/24/24 History levothyroxine 100 mcg tablet 200 mcg PO TURNER@0600 02/19/23 09/25/24 09/22/24 History Physical Exam 2 Vital Signs: Vital Signs: Last Vital Signs Temp 98.1 F 09/26/24 11:37 Pulse 55 09/26/24 11:37 Resp 20 09/26/24 11:37 BP 137/63 09/26/24 11:37 Pulse Ox 95 09/26/24 11:37 O2 Del Method Room Air 09/26/24 11:37 BMI result Body Mass Index 35.8 GENERAL APPEARANCE: in no acute distress, pleasant. NECK: no carotid bruit, no jugular venous distention. SKIN: no suspicious lesions, warm and dry. HEART: no murmurs, regular rate and rhythm. LUNGS: Bilateral expiratory wheezes and rhonchi. ABDOMEN: soft, nontender. EXTREMITIES: no edema. PERIPHERAL PULSES: equal. NEUROLOGIC: No gross deficits, AAO X 3 Objective Labs and Meds 09/26/24 06:03 09/26/24 06:03 Lab results: Laboratory Results - last 24 hr 09/25/24 09/25/24 09/26/24 15:55 16:48 06:03 WBC 9.9 RBC 4.36 Hgb 12.3 Hct 37.3 MCV 85.6 MCH 28.2 MCHC 33.0 RDW 14.3 Plt Count 275 MPV 8.6 L Immature Gran % (Auto) 0.3 Neut % (Auto) 60.8 Lymph % (Auto) 27.3 Bradley % (Auto) 8.4 Eos % (Auto) 2.7 Baso % (Auto) 0.5 Lymph # (Auto) 2.7 Bradley # (Auto) 0.8 Eos # (Auto) 0.3 Baso # (Auto) 0.1 Abs Immat Gran (auto) 0.03 Absolute Neuts (auto) 6.1 Absolute Nucleated RBC 0.000 Nucleated RBC % (auto) 0.0 Sodium 139 Potassium 3.9 Chloride 104 Carbon Dioxide 25 Anion Gap 14 BUN 21 H Creatinine 1.28 Estim Creat Clear Calc 39.3 Estimated GFR 41 Random Glucose 100 Lactic Acid F/U @ 2Hr 2.0 Calcium 9.7 B-Natriuretic Peptide 193 H Urine Color Yellow Urine Appearance Cloudy Urine pH 6.5 Ur Specific [place] >= 1.030 H Urine Protein Trace Urine Glucose (UA) Negative Urine Ketones Negative Urine Blood Negative Urine Nitrite Negative Ur Leukocyte Esterase Moderate (2+) H Urine RBC 0-2 Urine WBC 21-50 H Ur Squamous Epith Cells 11-20 Urine Bacteria 1+ Hyaline Casts 0-2 Imaging Radiologist's impression: Impressions Chest X-Ray 09/25/24 12:06 IMPRESSION: Unremarkable examination. Electronically signed by: Charity Ku MD 09/25/2024 03:10 PM [facility] Assessment and Plan (1) Vasovagal near syncope: Status: Acute (2) Pneumonia: Status: Acute Plan [age] year female with presyncope in the setting of pneumonia. She has recovered well with resuscitation and IV antibiotics. She has bilateral wheezes on examination but does not have any signs of volume overload and I think her presentation is due to pneumonia. Continue IV antibiotics. Agree with starting atenolol and amlodipine at half doses. She is bradycardic at baseline and probably best to leave atenolol at 25 mg on discharge also. As her blood pressure recovers we can discuss should other medications be resumed or not. So far blood pressure appears to be good. Signing off for now. Please page if any questions arise. Thank you for allowing me to participate in the care of your patient. Please feel free to contact me if you have any questions. Procedures Date of Service Date of Service: 09/26/24
[2024-09-26] MEDS: cefTRIAXone sodium 1 GM VIAL IV (15:56)
[2024-09-26] MEDS: Enoxaparin Sodium 40 MG/0.4 ML SYRINGE SUBCUT (15:56)
[2024-09-26] MEDS: FLUoxetine HCl 20 MG CAPSULE PO (20:58)
[2024-09-26] MEDS: Gabapentin 300 MG CAPSULE 600 MG PO (20:59)
[2024-09-27] VITALS (8 sets, daily range): BP systolic 158–194; BP diastolic 58–78; PULSE 50–66; RESP 18–20; TEMP 36.1–37.2; O2SAT 91–97
[2024-09-27 08:36] LABS: Baso%MD 0.9 %; Eos%MD 4.7 %; Hematocrit 36.8 % (37.0-47.0); Hemoglobin 12.3 g/dl (12.0-16.0); IG%MD 0.3 %; Lymph%MD 35.9 %; Mean Corpuscular HGB Conc 33.4 g/dl (31.0-35.0); Mean Corpuscular Hemoglobin 28.6 pg (27.0-33.0); Mean Corpuscular Volume 85.6 fL (80.0-98.0); Mean Platelet Volume 8.5 fL (9.4-12.3); Mono%MD 8.3 %; Neut%MD 49.9 %; Platelet Count 266 X10*3/uL (160-400); Red Cell Distribution Width 13.9 % (11.0-16.0)
[2024-09-27 08:39] LABS: Anion Gap 10 (12-20); Blood Urea Nitrogen 14 mg/dL (9-16); Calcium 9.1 mg/dL (8.4-10.2); Carbon Dioxide 24 mmol/L (22-29); Chloride 107 mmol/L (96-108); Creatinine Clr Calc Pharmacy 57.8; Estimated Glomerular Filt Rate > 60; Glucose Random 98 mg/dL (60-115); Potassium 3.6 mmol/L (3.3-5.1); Sodium 137 mmol/L (135-145)
--- NOTE | 2024-09-27 09:13 | P.PNIM_ITS ---
Subjective Subjective Date of Service: 09/27/24 Interval History: Patient admitted for near syncopal episode secondary to hypotension, pneumonia and MORIS She is feeling much better. Denies chest pain or shortness of breath. Still has a cough, upper airway congestion but unable to bring up any sputum. No lower extremity edema, nausea, vomiting or concerns aside from her blood pressure. Constitutional Constitutional: Denies body ache(s), Denies chills, Denies fatigue, Denies fever(s) and Denies headache(s) Eyes Eyes: Denies blurry vision and Denies change in vision ENT Ears, Nose, Mouth, and Throat: Denies headache(s), Denies nasal congestion, Denies nasal discharge and Denies sore throat Cardiovascular Cardiovascular: Denies chest pain, Denies rapid heart rate, Denies leg edema and Denies dyspnea Respiratory Respiratory: Reports chest congestion, Reports cough (non-productive), Denies dyspnea and Denies wheezing Gastrointestinal Gastrointestinal: Denies constipation, Denies diarrhea, Denies nausea and Denies vomiting Genitourinary Genitourinary: Denies dysuria and Denies urinary urgency Musculoskeletal Musculoskeletal: Denies myalgias Integumentary/Breasts Skin/Breast: Denies rash Neurologic Neurologic: Denies confusion and Denies headache(s) Psychiatric Psychiatric: Denies confusion Endocrine Endocrine: Denies fatigue Allergic/Immunologic Allergic/Immunologic: Denies wheezing Physical Exam 2 Vital Signs: Vital Signs: Last Vital Signs Temp 98.9 F 09/27/24 07:52 Pulse 64 09/27/24 07:52 Resp 20 09/27/24 07:52 BP 172/66 H 09/27/24 07:52 Pulse Ox 94 09/27/24 07:52 O2 Del Method Room Air 09/27/24 07:52 BMI result Body Mass Index 35.8 General: AOx3, no acute distress Resp: crackles BLL, no wheezing CVS: RRR, +murmur GI: +BS, NT, no distention Skin: Warm, dry Extremities: No edema Psych: Appropriate affect Const: General: No confusion Orientation/consciousness: No confusion Neuro: General: No confusion Objective Data Active Medications Acetaminophen (Acetaminophen 325 Mg Tablet) 650 mg PO Q6H PRN PRN Reason: Pain, Mild (Pain Scale 1-3), fever or headache Amlodipine Besylate (Amlodipine Besylate 5 Mg Tablet) 5 mg PO DAILY [facility]; Protocol Last Admin: 09/26/24 11:17 Dose: 5 mg Documented By: CORINNE Atenolol (Atenolol 25 Mg Tablet) 25 mg PO DAILY [facility]; Protocol Last Admin: 09/26/24 11:18 Dose: 25 mg Documented By: CORINNE Calcium Carbonate (Calcium Carbonate 750 Mg Tab.Chew) 750 mg PO Q4H PRN PRN Reason: Heartburn Ceftriaxone Sodium (Ceftriaxone Sodium 1 Gm Vial) 1 gm IV Q24H [facility] Last Admin: 09/26/24 15:56 Dose: 1 gm Documented By: CORINNE Enoxaparin Sodium (Enoxaparin Sodium 40 Mg/0.4 Ml Syringe) 40 mg SUBCUT Q24H [facility] Last Admin: 09/26/24 15:56 Dose: 40 mg Documented By: CORINNE Fluoxetine HCl (Fluoxetine Hcl 20 Mg Capsule) 20 mg PO BEDTIME [facility] Last Admin: 09/26/24 20:58 Dose: 20 mg Documented By: RAUL Gabapentin (Gabapentin 300 Mg Capsule) 600 mg PO BEDTIME [facility] Last Admin: 09/26/24 20:59 Dose: 600 mg Documented By: RAUL Doxycycline Hyclate 100 mg/ (Sodium Chloride) 250 mls @ 166.67 mls/hr IV BID [facility] Last Infusion: 09/26/24 22:30 Dose: Infused Documented By: RAUL Levothyroxine Sodium (Levothyroxine Sodium 200 Mcg Tablet) 200 mcg PO TURNER@0600 [facility] Levothyroxine Sodium (Levothyroxine Sodium 100 Mcg Tablet) 100 mcg PO MOTUWETHFRSA@0600 [facility] Magnesium Hydroxide (Milk Of Magnesia 30 Ml Oral.Susp) 30 ml PO DAILY PRN PRN Reason: Constipation Melatonin (Melatonin 3 Mg Tablet) 6 mg PO BEDTIME PRN PRN Reason: Insomnia Ondansetron HCl (Ondansetron Hcl 4 Mg/2 Ml Vial) 4 mg IVPUSH Q8H PRN PRN Reason: Nausea and Vomiting Labs 09/27/24 07:39 09/27/24 07:39 Labs: Laboratory Results - last 24 hr 09/27/24 07:39 MCV 85.6 MCH 28.6 MCHC 33.4 RDW 13.9 Plt Count 266 MPV 8.5 L Absolute Nucleated RBC 0.000 Nucleated RBC % (auto) 0.0 Hold Purple Top SEE NOTE Anion Gap 10 L Estim Creat Clear Calc 57.8 Estimated GFR > 60 Random Glucose 98 Calcium 9.1 D Microbiology Microbiology Results: Microbiology 09/25/24 Unknown Urine Culture - Final Urine clean catch - Clean Catch Midstream 09/25/24 15:06 Blood Culture - Preliminary Blood - Venous No growth after 24 hours. 09/25/24 15:07 Blood Culture - Preliminary Blood - Venous No growth after 24 hours. Assessment and Plan (1) Near syncope: Status: Acute (2) Pneumonia: Status: Acute (3) MORIS (acute kidney injury): Status: Acute (4) Obesity, class 2: Status: Chronic Plan Patient is a 74-year-old female with a medical history significant for diastolic CHF, HTN, non-rheumatic aortic stenosis, HLD, hypothyroid, GERD, and gout, who presented to the near syncopal episode and hypotension, diagnosed with MORIS and possible multifocal pneumonia Near-syncope secondary to hypotension - blood pressures no elevated - keep atenolol at 25 mg and increase amlodipine back to 10mg per cardiology - tele with mostly sinus bradycardia, intermittent normal rate - monitor BMP Multifocal pneumonia - no sepsis, hypotension secondary to multiple BP meds - continue ceftriaxone and doxycycline - leukocytosis improved, blood cultures no growth after 24 hours - monitor CBC MORIS - likely ATN, improved - continue to hold allopurinol, furosemide, atorvastatin and benazepril - UA with 1+ bacteria, urine culture negative - monitor BMP HTN - BP meds as above Hypothyroid - continue levothyroxine GERD - continue omeprazole Full code VTE prophylaxis: Lovenox Patient with near syncopal episode secondary to hypotension and multifocal pneumonia complicated by MORIS, requiring continued admission for IV antibiotics and reintroduction of blood pressure meds. Quality Stroke Does the patient have a stroke diagnosis?: No VTE Prior VTE?: No VTE Risk Level:: Medical - moderate - high VTE Device Contraindication: Treatment Not Indicated VTE Drug Contraindication: N/A - Med Ordered
[2024-09-27 09:21] LABS: Band Neutrophils Percent 0 % (3-5); Basophils Abs Manual 0.2 X10*3/uL (0.0-0.2); Basophils Percent Manual 3 % (0-2); Eosinophils Absolute Manual 0.5 X10*3/uL (0.0-0.4); Eosinophils Percent Manual 7 % (0-4); Lymphocytes Absolute Manual 2.2 X10*3/uL (1.2-4.9); Lymphocytes Percent Manual 32 % (20-40); Monocytes Absolute Manual 0.2 X10*3/uL (0.1-1.2); Monocytes Percent Manual 3 % (2-11); Neutrophils Absolute Manual 3.9 X10*3/uL (2.0-8.3); Neutrophils Percent Manual 55 % (45-73); Platelet Estimate NORMAL (NORMAL); Platelet Morphology Comment NORMAL; RBC Morphology NORMAL
[2024-09-27] MEDS: atenoloL 25 MG TABLET PO (10:29)
[2024-09-27] MEDS: amLODIPine Besylate 5 MG TABLET PO ×2 (10:30)
[2024-09-27] MEDS: Doxycycline Hyclate 100 MG in 0.9 % Sodium Chloride 250 ML 166.7 MG IV (10:31)
--- NOTE | 2024-09-27 10:46 | MHC.CM.PN ---
Per ROUNDS discussion, Patient is not yet medically cleared for dc (2 IV ABT, adjusting BP meds); home is the goal and CM will continue to follow.
--- NOTE | 2024-09-27 11:03 | PM.PNCARD ---
Subjective Subjective Date of Service: 09/27/24 Interval history: Seen examined at bedside. Blood pressure is elevated today. Physical Exam Vital Signs: Last Vital Signs Temp 98.9 F 09/27/24 07:52 Pulse 64 09/27/24 07:52 Resp 20 09/27/24 07:52 BP 172/66 H 09/27/24 07:52 Pulse Ox 94 09/27/24 07:52 O2 Del Method Room Air 09/27/24 07:52 BMI result Body Mass Index 35.8 GENERAL APPEARANCE: in no acute distress, pleasant. NECK: no carotid bruit, no jugular venous distention. SKIN: no suspicious lesions, warm and dry. HEART: no murmurs, regular rate and rhythm. LUNGS: No wheezing today. ABDOMEN: soft, nontender. EXTREMITIES: no edema. PERIPHERAL PULSES: equal. NEUROLOGIC: No gross deficits, AAO X 3 Objective Labs and Meds 09/27/24 07:39 09/27/24 07:39 Lab results: Laboratory Results - last 24 hr 09/27/24 07:39 WBC 7.0 RBC 4.30 Hgb 12.3 Hct 36.8 L MCV 85.6 MCH 28.6 MCHC 33.4 RDW 13.9 Plt Count 266 MPV 8.5 L Absolute Nucleated RBC 0.000 Nucleated RBC % (auto) 0.0 Neutrophils % (Manual) 55 Band Neutrophils % 0 L Lymphocytes % (Manual) 32 Monocytes % (Manual) 3 Eosinophils % (Manual) 7 H Basophils % (Manual) 3 H Abs Neuts (Manual) 3.9 Lymphocytes # (Manual) 2.2 Monocytes # (Manual) 0.2 Eosinophils # (Manual) 0.5 H Basophils # (Manual) 0.2 Platelet Estimate NORMAL Plt Morphology Comment NORMAL RBC Morphology NORMAL Hold Purple Top SEE NOTE Sodium 137 Potassium 3.6 Chloride 107 Carbon Dioxide 24 Anion Gap 10 L BUN 14 Creatinine 0.87 Estim Creat Clear Calc 57.8 Estimated GFR > 60 Random Glucose 98 Calcium 9.1 D Progress Note: A&P Assessment and plan (1) Pneumonia: Status: Acute (2) Essential hypertension: Status: Acute Plan Pleasant 74 year female with chronic diastolic heart failure and hypertension presenting with pneumonia. She was hypotensive on admission and medications were held. Her blood pressure has improved after antibiotics were started. Resume home medicines with the exception of atenolol which has been decreased to 25 mg once a day from 50 mg. Clinically not in heart failure. We will follow along with you. Thank you for allowing me to participate in the care of your patient. Please feel free to contact me if you have any questions. Time Spent With Patient Time: Total time managing care of this patient today ____ minutes. Progress Note: Quality Stroke Does the patient have a stroke diagnosis?: No Procedures Date of Service Date of Service: 09/27/24
[2024-09-27] MEDS: BENAZEPRIL 40 MG 40 EACH PO (13:06)
[2024-09-27] MEDS: Enoxaparin Sodium 40 MG/0.4 ML SYRINGE SUBCUT (16:08)
[2024-09-27] MEDS: cefTRIAXone sodium 1 GM VIAL IV (16:08)
[2024-09-27] MEDS: hydrALAZINE HCl 25 MG TABLET PO ×2 (20:25→22:41)
[2024-09-27] MEDS: FLUoxetine HCl 20 MG CAPSULE PO (22:32)
[2024-09-27] MEDS: Gabapentin 300 MG CAPSULE 600 MG PO (22:32)
[2024-09-27] MEDS: Doxycycline Hyclate 100 MG in 0.9 % Sodium Chloride 250 ML 166.67 MG IV (22:32)
[2024-09-28] VITALS (9 sets, daily range): BP systolic 134–180; BP diastolic 48–76; PULSE 50–64; RESP 18–20; TEMP 36.3–36.5; O2SAT 93–96
[2024-09-28] MEDS: amLODIPine Besylate 2.5 MG TABLET 7.5 MG PO (02:23)
[2024-09-28] MEDS: Levothyroxine Sodium 100 MCG TABLET PO (05:34)
[2024-09-28 08:56] LABS: Anion Gap 14 (12-20); Blood Urea Nitrogen 12 mg/dL (9-16); Calcium 9.8 mg/dL (8.4-10.2); Carbon Dioxide 24 mmol/L (22-29); Chloride 107 mmol/L (96-108); Creatinine Clr Calc Pharmacy 59.8; Estimated Glomerular Filt Rate > 60; Glucose Random 98 mg/dL (60-115); Potassium 3.9 mmol/L (3.3-5.1); Sodium 141 mmol/L (135-145)
[2024-09-28] MEDS: atenoloL 25 MG TABLET PO (09:00)
[2024-09-28] MEDS: BENAZEPRIL 40 MG 40 EACH PO (09:00)
[2024-09-28] MEDS: Doxycycline Hyclate 100 MG in 0.9 % Sodium Chloride 250 ML 166.67 MG IV (09:00)
[2024-09-28] MEDS: hydrALAZINE HCl 25 MG TABLET PO (09:00)
--- NOTE | 2024-09-28 11:46 | P.PNIM_ITS ---
Subjective Subjective Date of Service: 09/28/24 Interval History: moris, near syncop Physical Exam 2 Vital Signs: Vital Signs: Last Vital Signs Temp 97.5 F 09/28/24 11:38 Pulse 50 09/28/24 11:38 Resp 20 09/28/24 11:38 BP 140/66 H 09/28/24 11:38 Pulse Ox 93 09/28/24 11:38 O2 Del Method Room Air 09/28/24 11:38 BMI result Body Mass Index 35.8 Objective Data Active Medications Acetaminophen (Acetaminophen 325 Mg Tablet) 650 mg PO Q6H PRN PRN Reason: Pain, Mild (Pain Scale 1-3), fever or headache Amlodipine Besylate (Amlodipine Besylate 10 Mg Tablet) 10 mg PO DAILY [facility]; Protocol Last Admin: 09/28/24 08:06 Dose: Not Given Documented By: DESI Non-Admin Reason: Physician Held Med Atenolol (Atenolol 25 Mg Tablet) 25 mg PO DAILY [facility]; Protocol Last Admin: 09/28/24 09:00 Dose: 25 mg Documented By: DESI Calcium Carbonate (Calcium Carbonate 750 Mg Tab.Chew) 750 mg PO Q4H PRN PRN Reason: Heartburn Ceftriaxone Sodium (Ceftriaxone Sodium 1 Gm Vial) 1 gm IV Q24H [facility] Last Admin: 09/27/24 16:08 Dose: 1 gm Documented By: BOSSMAN Doxycycline Monohydrate (Doxycycline Monohydrate 100 Mg Capsule) 100 mg PO Q12H [facility] Enoxaparin Sodium (Enoxaparin Sodium 40 Mg/0.4 Ml Syringe) 40 mg SUBCUT Q24H [facility] Last Admin: 09/27/24 16:08 Dose: 40 mg Documented By: BOSSMAN Fluoxetine HCl (Fluoxetine Hcl 20 Mg Capsule) 20 mg PO BEDTIME [facility] Last Admin: 09/27/24 22:32 Dose: 20 mg Documented By: TROY Gabapentin (Gabapentin 300 Mg Capsule) 600 mg PO BEDTIME [facility] Last Admin: 09/27/24 22:32 Dose: 600 mg Documented By: TROY Guaifenesin (Guaifenesin La 600 Mg Tab.Er.12h) 600 mg PO BID PRN PRN Reason: Cough Hydralazine HCl (Hydralazine Hcl 25 Mg Tablet) 25 mg PO TID [facility]; Protocol Last Admin: 09/28/24 09:00 Dose: 25 mg Documented By: DESI Levothyroxine Sodium (Levothyroxine Sodium 200 Mcg Tablet) 200 mcg PO TURNER@0600 [facility] Levothyroxine Sodium (Levothyroxine Sodium 100 Mcg Tablet) 100 mcg PO MOTUWETHFRSA@0600 [facility] Last Admin: 09/28/24 05:34 Dose: 100 mcg Documented By: TROY Magnesium Hydroxide (Milk Of Magnesia 30 Ml Oral.Susp) 30 ml PO DAILY PRN PRN Reason: Constipation Melatonin (Melatonin 3 Mg Tablet) 6 mg PO BEDTIME PRN PRN Reason: Insomnia Pt Own(Benazepril 40 (Mg Tablet)) 40 mg PO DAILY [facility] Last Admin: 09/28/24 09:00 Dose: 40 mg Documented By: DESI Ondansetron HCl (Ondansetron Hcl 4 Mg/2 Ml Vial) 4 mg IVPUSH Q8H PRN PRN Reason: Nausea and Vomiting Labs 09/27/24 07:39 09/28/24 07:54 Labs: Laboratory Results - last 24 hr 09/28/24 07:54 Anion Gap 14 Estim Creat Clear Calc 59.8 Estimated GFR > 60 Random Glucose 98 Calcium 9.8 D Microbiology Microbiology Results: Microbiology 09/25/24 15:06 Blood Culture - Preliminary Blood - Venous No growth after 48 hours. 09/25/24 15:07 Blood Culture - Preliminary Blood - Venous No growth after 48 hours. 09/25/24 Unknown Urine Culture - Final Urine clean catch - Clean Catch Midstream Assessment and Plan (1) Near syncope: Status: Acute (2) Pneumonia: Status: Acute (3) MORIS (acute kidney injury): Status: Acute (4) Obesity, class 2: Status: Chronic Plan Patient is a 74-year-old female with a medical history significant for diastolic CHF, HTN, non-rheumatic aortic stenosis, HLD, hypothyroid, GERD, and gout, who presented to the near syncopal episode and hypotension, diagnosed with MORIS and possible multifocal pneumonia Near-syncope secondary to hypotension( possible in setting of multiple bp meds vs vasovagal) blood pressures no elevated, has orthostatsis positive( early this morning vitals). mostly sinus bradycardia, intermittent normal rate plan: continue atenolol at 25 mg qd ,amlodipine 7.5 mg qd,benzapril 40 mg qd ,hydralazine 25 mg tid monitor for orthostasis Multifocal pneumonia - no sepsis, hypotension secondary to multiple BP meds - continue ceftriaxone and doxycycline - leukocytosis improved, blood cultures no growth @48 hours - monitor CBC MORIS - likely ATN, improved - continue to hold allopurinol, furosemide, atorvastatin and benazepril - UA with 1+ bacteria, urine culture negative - monitor BMP HTN - BP meds as above Hypothyroid - continue levothyroxine GERD - continue omeprazole generalised weak: added PT. VTE prophylaxis: Lovenox ongoing need for hospitlisation - syncopal episode secondary to hypotension and multifocal pneumonia complicated by MORIS, requiring continued admission for IV antibiotics and reintroduction of blood pressure meds. Quality Stroke Does the patient have a stroke diagnosis?: No VTE Prior VTE?: No VTE Risk Level:: Medical - moderate - high VTE Device Contraindication: Treatment Not Indicated VTE Drug Contraindication: N/A - Med Ordered
--- NOTE | 2024-09-28 13:04 | PM.DS ---
DS: Providers Provider Date of Service: 09/28/24 Date of admission: 09/25/24 16:00 Date of discharge: 09/28/24 Primary care physician: Ilia Cates III, MD Consults: 09/26/24 10:53 Consult to Cardiology Routine Consulting Provider: [facility] [place] [facility] Reason for consultation: near syncope, low BP, med recommendations Has provider been notified: No Attending physician on discharge: Rosalind Brooks Discharging clinician: Rosalind Brooks DS: Diagnosis Discharge Diagnosis (1) Near syncope: Status: Acute (2) Pneumonia: Status: Acute (3) MORIS (acute kidney injury): Status: Acute (4) Obesity, class 2: Status: Chronic DS: Summary Hospital Course Hospital Course: HPI: 74-year-old female with a medical history significant for diastolic CHF, HTN, nonrheumatic aortic stenosis, HLD, hypothyroid, GERD, and gout, who presented to the near syncopal episode while at her PCP's office. Her blood pressure was very low, 80/palp by EMS, and she was given 1 mg atropine and a 400ml bolus of NS. She reports dizziness and weakness for the past week. No measured fever but has felt warm and chills. Also complains of phlegm and nonproductive cough for the past week. Weakness was much worse this morning and she had plan to see her PCP today. No increased dyspnea with exertion or lower extremity edema over the past week. No recent sick contacts. No nasal congestion, sore throat, nausea, vomiting or headache. Hospital course:74-year-old female with a medical history significant for diastolic CHF, HTN, non-rheumatic aortic stenosis, HLD, hypothyroid, GERD, and gout, who presented to the near syncopal episode and hypotension, diagnosed with MORSI and possible multifocal pneumonia. Near-syncope secondary to hypotension( possible in setting of multiple bp meds vs vasovagal) has orthostatsis positive( early this morning vitals).mostly sinus bradycardia, intermittent normal rate plan:Seen by cardiology -near-syncope possibly related to vasovagal versus blood pressure medication, also has uncontrolled blood pressure likely due to off from her home blood pressure medications: Which are restarted and blood pressure improving,Patient also has component of orthostasis possibly related to her recent sickness, decreased p.o. intake: Encouraged for hydration and p.o. intake. We checked orthostasis before discharge, patient asymptomatic. adjusted atenolol at 25 mg qd due to mild bradycardia ,amlodipine 7.5 mg qd,benzapril 40 mg qd ,restart lasix. Multifocal pneumonia - no sepsis, hypotension secondary to multiple BP meds. cta chest(please see detialed info in imaging section)-possible multifocal pneumonia. UA with 1+ bacteria, urine cultures mixed(contaminant) -no urinary symptoms. started on ceftriaxone and doxycycline,leukocytosis improved, blood cultures no growth @48 hours patient improved-continue doxycycline 100 mg p.o. b.i.d. and Ceftin 500 mg p.o. b.i.d. for 1 week. Repeat chest imaging out patiently in 3-4 weeks to see resolution pneumonia. Incidental findin.5 cm heterogeneous low density nodule in the left adrenal gland which measures 44 Hounsfield units. Multifocal hypodensities in the upper pole both kidneys.consider outpatient follow with urology. Assessment and plan coordination time spent 40 minute. Above discussed with the patient in detail length she understand in agreement with the above plan. Time Attestation Total time managing care of this patient today: 40 mintues. Discharge Coordination Time (in mins): 40 min Quality: Safe Use of Opioids Does Pt have an Active Cancer Diagnosis on the Problem List?: No Quality: Stroke Does the patient have a stroke diagnosis?: No Physical Exam Vital Signs: Vital Signs: Last Vital Signs Temp 97.5 F 09/28/24 11:38 Pulse 50 09/28/24 11:38 Resp 20 09/28/24 11:38 BP 140/66 H 09/28/24 11:38 Pulse Ox 93 09/28/24 11:38 O2 Del Method Room Air 09/28/24 11:38 BMI result Body Mass Index 35.8 General: AOx3, no acute distress Resp: air entry fair , no rales . CVS: RRR,s1s2 heard. GI: +BS, NT, no distention Skin: Warm, dry Extremities: No edema Psych: Appropriate affect DS: Data Data Completed and Pending Labs on day of discharge: Laboratory Results - last 24 hr 09/28/24 07:54 Sodium 141 Potassium 3.9 Chloride 107 Carbon Dioxide 24 Anion Gap 14 BUN 12 Creatinine 0.84 Estim Creat Clear Calc 59.8 Estimated GFR > 60 Random Glucose 98 Calcium 9.8 D Preliminary micro results at discharge 09/25/24 15:06 Blood Culture - Preliminary Blood - Venous No growth after 48 hours. 09/25/24 15:07 Blood Culture - Preliminary Blood - Venous No growth after 48 hours. Imaging Chest x-ray: Radiologist's impression: ITS Impressions Chest X-Ray 09/25/24 12:06 IMPRESSION: Unremarkable examination. Electronically signed by: Charity Ku MD 09/25/2024 03:10 PM EST RP Head CT 09/25/24 12:40 IMPRESSION: No acute intracranial hemorrhage or acute brain abnormality by CT. Electronically signed by: Chaim Cage MD 09/25/2024 02:16 PM EST RP Chest CTA 09/25/24 12:45 IMPRESSION: No aneurysm or dissection, thoracic aorta. Pulmonary edema versus pneumonitis versus multifocal pneumonia. 2.5 cm nodular lesion, left adrenal gland. Fleischner guidelines were followed. Electronically signed by: Chaim Cage MD 09/25/2024 02:11 PM EST RP Discharge Plan Discharge Anticipated Discharge Date/Time: 09/28/24 12:55 Patient Disposition: Home, Self-Care Discharge Diagnosis: near syncope , orthostasis ,moris ,pneumonia Referrals: Ilia Cates III, MD [Primary Care Provider] - 1 Week Discharge Medications: New atenolol 25 mg Tablet 25 mg PO DAILY Qty: 30 0RF Protocol: Hold for SBP/HR < HOLD for SBP < : 90 HOLD for HR < : 60 doxycycline monohydrate 100 mg Capsule 100 mg PO Q12H Qty: 14 0RF cefuroxime axetil 500 mg tablet 500 mg PO BID Qty: 14 0RF (DME) T.E.D. Knee Fihfdf-L-Ntcq Misc See Rx Instructions .ROUTE .MEDSUPPLY Qty: 12 0RF Rx Instructions: As directed Continued furosemide 20 mg tablet 10 mg PO DAILY 90 Days Qty: 45 1RF acetaminophen [Tylenol] 325 mg Tablet 650 mg PO Q6H PRN (Reason: Pain) allopurinol 100 mg tablet 200 mg PO BEDTIME levothyroxine 100 mcg tablet 200 mcg PO TURNER@0600 benazepril 40 mg tablet 40 mg PO DAILY fluoxetine 20 mg capsule 20 mg PO BEDTIME atorvastatin 20 mg tablet 20 mg PO BEDTIME levothyroxine 100 mcg tablet 100 mcg PO AVILA@0600 amlodipine 10 mg tablet 10 mg PO BEDTIME gabapentin 300 mg capsule 600 mg PO BEDTIME Discontinued atenolol 50 mg tablet 50 mg PO BEDTIME Discharge Orders: Discharge Order (Routine); Ordered 09/28/24 Ordered By: Rosalind Brooks Diet: Advance to usual diet Activity on Discharge: As tolerated Stand Alone Forms: Patient Portal Discharge page Print Language: Eritrean Care Plan Goals: Patient admitted for near-syncope, hypotension, MORIS, pneumonia: Treated with fluid, IV antibiotics-seems to improved. MORIS and hypotension seems to be improved. Seen by cardiology -near-syncope possibly related to vasovagal versus blood pressure medication, also has uncontrolled blood pressure likely due to off from her home blood pressure medications: Which are restarted. Patient also has component of orthostasis possibly related to her recent sickness, decreased p.o. intake: Encouraged for hydration and p.o. intake. We checked orthostasis before discharge, patient seems asymptomatic. Has mild bradycardia: Atenolol adjusted to 25 mg daily. Pneumonia: Symptomatically improved, continue doxycycline 100 mg p.o. b.i.d. and Ceftin 500 mg p.o. b.i.d. for 1 week. Repeat chest imaging out patiently in 3-4 weeks to see resolution pneumonia. Monitor blood pressure outpatient closely. Health Concerns: As above. Plan of Treatment: Atenolol adjusted to 25 mg daily. continue doxycycline 100 mg p.o. b.i.d. and Ceftin 500 mg p.o. b.i.d. for 1 week. moniter blood pressure and heart rate outpatient. advised orthostatic precautions. follow up with pcp outpatient. Assessment: As above. Patient Instructions: Cefuroxime (By mouth), Atenolol (By mouth), Doxycycline (By mouth), Pneumonia (DC)
[2024-09-28] MEDS: cefuroxime axetiL 500 MG TABLET PO (13:32)
[2024-09-28] MEDS: Furosemide 20 MG TABLET PO (13:32)
--- NOTE | 2024-09-28 14:21 | MHC.CM.PN ---
Pt is medically cleared for discharge home self-care, pts family will transport her home.
== END 2024-09-28 14:32 | disposition home or self-care (01) | DRG 194 ==
LOC: HO.ED 14:37 → HO.EDOVER 16:15 → HO.IMC 09-26 00:34
PROVIDERS: Physician Assistant Medical; Admitting Provider Physician Assistant; Emergency Provider Student in an Organized Health Care Education/Training Program; PCP Internal Medicine; Visit Provider Internal Medicine
DX: J18.9 Pneumonia, unspecified organism (principal); I50.32 Chronic diastolic (congestive) heart failure; N17.9 Acute kidney failure, unspecified; I95.2 Hypotension due to drugs; T46.5X5A Adverse effect of other antihypertensive drugs, initial encounter; I11.0 Hypertensive heart disease with heart failure; E03.9 Hypothyroidism, unspecified; K21.9 Gastro-esophageal reflux disease without esophagitis; Z87.891 Personal history of nicotine dependence; Z79.890 Hormone replacement therapy; Z79.899 Other long term (current) drug therapy
CPT/HCPCS: 0241U; 36415; 70450; 71045; 71275; 80048; 80053; 81001; 81003; 83605; 83735; 83880; 84484; 85007; 85025; 85027; 85610; 87040; 87086; 93005; 99285; J0696; J1650; J1940; J2543; Q9967

== ENCOUNTER → 2024-09-25 12:21 | Outpatient (BNV) | payer MEDICARE, SELFPAY | PROVIDERS: Emergency Provider Student in an Organized Health Care Education/Training Program; PCP Internal Medicine; Visit Provider Radiology Diagnostic Radiology | DX: I95.9 Hypotension, unspecified (principal); R41.82 Altered mental status, unspecified; R53.1 Weakness | CPT/HCPCS: 70450; 71275 ==

== ENCOUNTER → 2024-09-25 16:00 | Outpatient (BNV) | payer MEDICARE, SELFPAY | PROVIDERS: Admitting Provider Physician Assistant; Emergency Provider Student in an Organized Health Care Education/Training Program; PCP Internal Medicine; Visit Provider Internal Medicine Cardiovascular Disease | DX: J18.9 Pneumonia, unspecified organism (principal); I10 Essential (primary) hypertension | CPT/HCPCS: 93010; 99222; 99232 ==

== ENCOUNTER → 2024-09-25 16:00 | Outpatient (BNV) | payer MEDICARE, SELFPAY | PROVIDERS: Admitting Provider Physician Assistant; Emergency Provider Student in an Organized Health Care Education/Training Program; PCP Internal Medicine; Visit Provider Physician Assistant | DX: R55 Syncope and collapse (principal); J18.9 Pneumonia, unspecified organism; N17.9 Acute kidney failure, unspecified; E66.812 Obesity, class 2 | CPT/HCPCS: 99222; 99232; 99239 ==

== ENCOUNTER 2024-12-21 08:45 | Inpatient (IN) | payer MEDICARE, SELFPAY ==
[2024-12-21] VITALS (8 sets, daily range): BP systolic 69–143; BP diastolic 44–69; PULSE 43–148; RESP 16–18; TEMP 35.7–36.6; O2SAT 94–98; BMI 35.3; BMI 36.9
--- NOTE | ~2024-12-21 | CT_ITS ---
CLINICAL HISTORY: sob CT angiography chest with contrast. 3D Postprocessing. Comparison: CT/SC/SR - CT ANGIO CHEST AORTA - 09/25/24 12:[address]/[place] [id number] - 07/27/19 16:25 EDT Findings: No acute pulmonary embolism. Normal caliber thoracic aorta. No dissection allowing for prominent pulsation artifact. Two-vessel arch anatomy. Mild plaque. No significant stenosis. No dissection. Stable mild cardiomegaly. Normal RV/LV ratio. Although increased right heart pressure is suggested with reflux of contrast into the IVC and coronary sinus. No pericardial effusion. Minimal coronary artery calcification. Generalized mosaic lung attenuation similar to priors suggesting small airway disease either obstructive or reactive. No consolidation. No pleural effusion or pneumothorax. Thoracic inlet intact. No thyroid nodules. No pathologically enlarged mediastinal or hilar lymph nodes. Esophagus within normal limits. Small hiatal hernia. Upper abdomen detailed separately. No acute or aggressive appearing bone lesion. Soft tissues intact. Impression: No acute pulmonary embolism or aortic dissection. Mild cardiomegaly. Mild increased right heart pressure is suggested as noted. Normal RV/LV ratio. Mosaic lung attenuation suggesting small airway disease similar to prior. No consolidation. This document has been electronically signed by: Dileep Alvarado MD on 12/21/2024 12:50:55
--- NOTE | ~2024-12-21 | CT_ITS ---
CLINICAL HISTORY: abd discomfot CT abdomen and pelvis with contrast Comparison: CT/WI/SR - CT ANGIO CHEST AORTA - 09/25/24 12:[address]/WI/SR - ABD PELV W IV CON ONLY [id number] - 01/11/17 17:38 EST Findings: Mosaic lung attenuation in the lung bases suggesting small airway disease similar to prior. Mild cardiomegaly. No pericardial effusion. Liver, gallbladder, biliary tree, pancreas, spleen and right adrenal gland are unremarkable. 2.5 x 2.2 cm left adrenal nodule, not significantly changed from [address] supporting incidental adenoma. Small bilateral renal cysts not requiring follow-up. Mild scarring both kidneys greater to the left. No stones or hydronephrosis. No bowel obstruction or acute perienteric inflammation. No diverticulitis. Normal appendix. 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 No pathologically enlarged nodes. Normal caliber aorta. Moderate plaque. No stenosis or dissection. Patent renal arteries, celiac trunk and SMA. Patent DEVENDRA. Patent hepatic veins, IVC and portal vein. Small bilateral ovarian cysts smaller than on 2017 study without adverse change. Otherwise pelvic viscera and urinary bladder intact. No acute or aggressive appearing bone lesion. Impression: No acute process evident. Multiple chronic changes as detailed. This document has been electronically signed by: Dileep Alvarado MD on 12/21/2024 12:44:25
--- NOTE | ~2024-12-21 | CT_ITS ---
CLINICAL HISTORY: hedache, feeling unwell. CT head without contrast Comparison: CT/IA/SR - CT HEAD/BRAIN WO IV CON - 09/25/24 12:43 EST Findings: No intra-axial mass, midline shift, hydrocephalus, or acute hemorrhage. No significant atrophy-like change or white matter disease. The visualized paranasal sinuses and mastoid air cells are normal. The included portion of the orbits are within normal limits. There is no acute fracture. IMPRESSION: 1. No acute intracranial findings. This document has been electronically signed by: Dileep Alvarado MD on 12/21/2024 12:30:33
--- NOTE | 2024-12-21 07:00 | CA_ITS ---
Transthoracic Echocardiogram Patient (Last, First, Middle): Shruthi Ch, Gender: Female Date of : 1950 Age: 74 Procedure Date: 12/21/2024 Procedure Type: Transthoracic Echocardiogram Location: [facility] Height: 154.94 cm Weight: 84.37 kg BSA: 1.83 m2 Heart Rate: bpm BP: 124 / 57 mmHg Building Certifier: Referring MD: Aron Trujillo MD Symptoms: SVT, Study Quality: Fair ECG Rhythm: Atrial Fibrillation Conclusions: - Normal left ventricular size and systolic function. There is mildly increased left ventricular wall thickness. The visually estimated ejection fraction is between 55-60%. - E/E prime ratio is between 8 and 15 consistent with indeterminate filling pressures. - Normal right ventricular cavity size and systolic function. - There is mild aortic valve stenosis. Findings Left Ventricle Normal left ventricular size and systolic function. There is mildly increased left ventricular wall thickness. The visually estimated ejection fraction is between 55-60%. There is no evidence of regional wall motion abnormalities. Abnormal diastolic function is noted. Spectral Doppler is indicative of a pseudonormal filling pattern. E/E prime ratio is between 8 and 15 consistent with indeterminate filling pressures. Right Ventricle Normal right ventricular cavity size and systolic function. Atria The left atrium is normal in size. The right atrium is normal in size. Aortic Valve There is moderate calcification of the aortic valve. There is mild aortic valve stenosis. The peak aortic velocity is 2.23 m/s. The mean gradient is 10 mmHg. The aortic valve area is 1.31 cm2. There is no aortic valve regurgitation. Mitral Valve The mitral valve appears normal. There is no mitral valve regurgitation. There is no mitral valve stenosis. Pulmonic Valve The pulmonic valve is normal. There is no pulmonic valve regurgitation. Tricuspid Valve Likely normal tricuspid valve structure and function. Normal right atrial pressure. There is no evidence of pulmonary hypertension. Great Vessels All visible segments of the aorta are normal in size. The visualized portions of the pulmonary artery and branches are normal. Venous The inferior vena cava is normal in size and collapses greater than 50% with inspiration. Pericardium/Pleural Prominent epicardial adipose tissue noted. There is no evidence of pericardial effusion. Prior Study Comparison No significant change compared to prior study dated: 04/14/2023. Measurements 2D Linear Measurements IVSd: 1.22 0.6-0.9/0.6-1.0 cm LVIDd: 4.47 3.9-5.3/4.2-5.9 cm LVIDd Index: 2.44 2.4-3.2/2.2-3.1 cm/m2 LVIDs: 3.44 2.0-3.6 cm LVPWd: 1.24 0.7-1.1 cm Ao Root: 2.80 2.1-3.5 cm LA Diam: 4.30 2.7-3.8/3.0-4.0 cm LAIDs Index: 2.35 1.5-2.3 cm/m2 LV Mass: 253.24 67-162/88-224 g LV Mass Index: 138.38 43-95/49-115 g/m2 LVOT Diam: 2.00 3.0+(-)1.3 cm Mitral Valve MV Pk E: 0.62 MV PK A: 0.52 MV Decel Time: 312.00 E/A: 1.20 E'Lateral: 7.40 E'Medial: 5.00 E/E' Med: 12.30 E/E' Lat: 8.30 PHT: 91.00 MVA PHT: 2.42 Decel Camp: 1.98 Aortic Valve AoV Pk Yasmany: 2.23 AoV Mn Yasmany: 1.40 AoV VTI: 0.48 AoV Pk Grad: 20.00 Aov Mn Grad: 10.00 JERAMIE Cont.VTI: 1.31 LVOT LVOT Pk Yasmany: 0.89 LVOT Mn Yasmany: 0.54 LVOT VTI: 0.20 LVOT Pk Grad: 3.00 LVOT Mn Grad: 1.00 LVOT Diam: 2.00 LVOT Area: 3.14 Diastolic Function MV Pk E: 0.62 MV Pk A: 0.52 E/A: 1.20 E'Medial: 5.00 E/E' Med: 12.30 E' Laterial: 7.40 E/E' Lat: 8.30 Right Ventricle TAPSE (mm): 18.00 Tricuspid Valve TR Pk Yasmany: 1.70 TR Pk Grad: 12.00 RA Press: 3.00 RVSP: 15.00 Great Vessels Aorta Ao Root-2D: 2.80 2.0-3.7 cm Ao Asc: 3.00 2.1-3.4 cm Pulmonary Valve PV Pk Yasmany: 1.01 Peak PV Grad: 4.00 Updated in Other Vendor System with Status of Final Aron Trujillo MD electronically signed on 12/22/2024 10:33:52 AM with status of Final
--- NOTE | 2024-12-21 09:14 | ECG_ITS ---
Test Reason : dizziness Blood Pressure : */* mmHG Vent. Rate : 132 BPM Atrial Rate : * BPM P-R Int : * ms QRS Dur : 76 ms QT Int : 276 ms P-R-T Axes : * -24 121 degrees QTcB Int : 408 ms Supraventricular tachycardia Left ventricular hypertrophy with repolarization abnormality ( R in aVL , [place] product ) Abnormal ECG When compared with ECG of 25-Sep-2024 11:50, Vent. rate has increased by 79 bpm T wave inversion now evident in Lateral leads Referred By: Edith Schafer Electronically Signed By: Aron Trujillo
[2024-12-21] MEDS: 0.9 % Sodium Chloride 1,000 ML 999 ML IV (09:39)
[2024-12-21 09:42] LABS: MANUAL DIFF FLAG NO
[2024-12-21 09:44] LABS: Basophils Absolute Auto 0.1 X10*3/uL (0.0-0.2); Basophils Percent Auto 0.8 % (0-2); Eosinophils Absolute Auto 0.2 X10*3/uL (0.0-0.4); Eosinophils Percent Auto 1.9 % (0-4); Hematocrit 44.9 % (37.0-47.0); Hemoglobin 15.3 g/dl (12.0-16.0); Imm Gran Abs Auto 0.05 X10*3/uL (0.00-0.03); Imm Gran Pct Auto 0.5 % (0.0-0.4); Mean Corpuscular HGB Conc 34.1 g/dl (31.0-35.0); Mean Corpuscular Hemoglobin 28.3 pg (27.0-33.0); Mean Corpuscular Volume 83.1 fL (80.0-98.0); Mean Platelet Volume 8.3 fL (9.4-12.3); Monocytes Absolute Auto 0.8 X10*3/uL (0.1-1.2); Monocytes Percent Auto 6.8 % (2-11); Platelet Count 310 X10*3/uL (160-400); Red Cell Distribution Width 14.5 % (11.0-16.0)
--- NOTE | 2024-12-21 09:44 | ECG_ITS ---
Test Reason : jeri Blood Pressure : */* mmHG Vent. Rate : 44 BPM Atrial Rate : 44 BPM P-R Int : 140 ms QRS Dur : 78 ms QT Int : 430 ms P-R-T Axes : 12 -22 -4 degrees QTcB Int : 367 ms Marked sinus bradycardia Minimal voltage criteria for LVH, may be normal variant ( R in aVL ) Nonspecific ST abnormality Abnormal ECG When compared with ECG of 21-Dec-2024 09:23, Vent. rate has decreased by 88 bpm T wave inversion now evident in Inferior leads T wave inversion no longer evident in Lateral leads Referred By: Rosalind Brooks Electronically Signed By: Aron Trujillo
[2024-12-21 09:53] LABS: Prothrombin Time 11.9 SEC (10.9-12.4)
--- NOTE | 2024-12-21 09:56 | ED.GENADULT ---
HPI - General Adult General Chief complaint: Weakness Stated complaint: weakness Time Seen by Provider: 12/21/24 09:02 Source: patient and family Mode of arrival: ambulatory Limitations: no limitations History of Present Illness ED Provider: BEAU Schafer HPI narrative: This is a very pleasant 74-year-old female past medical history significant for obesity, bradycardia, near syncope, chronic pain syndrome, hypertension, nonrheumatic aortic stenosis, chronic diastolic heart failure presenting to the emergency department with overall feeling unwell, fatigue, malaise, vague abdominal discomfort throughout, urinary frequency since last night and episode of palpitations that awoke her at approximately 02:00 however she feels like this subsided. She tells me she just does not feel like herself and she is unable to elaborate why. Denies fevers, chills, headache, vision changes, dizziness, weakness changes in bowel habits. NIH stroke scale 0 Related Data Home Medications ?Medication ?Instructions ?Recorded ?Confirmed amlodipine 10 mg tablet 10 mg PO BEDTIME 02/08/21 09/25/24 atorvastatin 20 mg tablet 20 mg PO BEDTIME 02/08/21 09/25/24 fluoxetine 20 mg capsule 20 mg PO BEDTIME 02/08/21 09/25/24 gabapentin 300 mg capsule 600 mg PO BEDTIME 02/08/21 09/25/24 levothyroxine 100 mcg tablet 100 mcg PO MOTUWETHFRSA@0600 02/08/21 09/25/24 acetaminophen 325 mg tablet 650 mg PO Q6H PRN Pain 02/19/23 09/25/24 (Tylenol) allopurinol 100 mg tablet 200 mg PO BEDTIME 02/19/23 09/25/24 levothyroxine 100 mcg tablet 200 mcg PO TURNER@0600 02/19/23 09/25/24 benazepril 40 mg tablet 40 mg PO DAILY 09/27/24 09/27/24 Previous Rx's ?Medication ?Instructions ?Recorded cefuroxime axetil 500 mg tablet 500 mg PO BID #14 tabs 09/28/24 compr.stocking,knee,long,small #12 ea 09/28/24 (T.E.D. Knee Vqjjst-H-Pfrw [facility]) doxycycline monohydrate 100 mg 100 mg PO Q12H #14 caps 09/28/24 capsule furosemide 20 mg tablet 20 mg PO DAILY #45 tabs 10/15/24 atenolol 25 mg tablet 25 mg PO DAILY #90 tabs 10/30/24 Allergies Allergy/AdvReac Type Severity Reaction Status Date / Time No Known Allergies Allergy Verified 12/21/24 08:58 [No Known Allergies*] Review of Systems Review of Systems: Yes all other systems are reviewed and are negative [facility] Past Medical History Attestation statement: The following information was validated with the patient. Source: old records reviewed and nursing notes reviewed Medical History CHF exacerbation Vertebral compression fracture Essential hypertension Non-rheumatic aortic stenosis Chronic diastolic (congestive) heart failure Surgical History History of breast biopsy History of hysterectomy Family History Family History Father Dementia Mother Hypertension Alzheimer disease Social History Social History Household Members: Family Housing: House Do you presently have visiting nurse or other home services: No Alcohol intake: never Patient Tobacco Use Status: Former Tobacco user Advance Directives: No Advance Directives Information Provided: No service: No Physical Exam ED Vital Signs: Vital Signs - 24 hr 12/21/24 08:50 12/21/24 09:22 12/21/24 09:35 Temperature 96.3 F L Pulse Rate 87 126 H 148 H Respiratory Rate 16 Blood Pressure 93/57 L 96/63 128/69 Pulse Oximetry 98 Oxygen Delivery Method Room Air 12/21/24 09:35 12/21/24 10:13 Temperature Pulse Rate 58 43 L Respiratory Rate 16 Blood Pressure 69/44 L 90/49 L Pulse Oximetry 94 Oxygen Delivery Method Room Air BMI result Body Mass Index 35.3 Patient is noted to be hypotensive Variation in heart rate noted upon my initial assessment therefore orthostatic vitals were done and she was noted to be orthostatic. Appearance: Alert.? Oriented X3.? No acute distress.? Head: Normocephalic, atraumatic, no step-offs or deformities Eyes: Pupils equal, round and reactive to light.? ENT: Pharynx normal.? Neck: Normal inspection.? Neck supple.? CVS: Rapid rate with normal rhythm likely sinus tachycardia. Respiratory: No respiratory distress.? Breath sounds normal.? Abdomen: Soft and nontender.? Skin: Skin warm and dry.? Normal skin color.? Normal skin turgor.? Extremities: No lower extremity edema.? No calf ttp. 5/5 strength to bilateral upper and lower extremities Neuro: Oriented X 3.? No motor deficit.? No sensory deficit. CN 2-12 intact Course Reevaluation(s) Reevaluation #1: Patient's white blood cell count slightly elevated 11.0 I suspect this is reactive secondary to prolonged tachycardia and possible hypoxia. No left shift unlikely infectious in origin. Initial EKG showing SVT with a rate of 135. Repeat showing marked sinus bradycardia with a heart rate of 44. Chemistry pending. Flu, COVID, RSV pending. Time: 10:03 Reevaluation #2: I did reach out to cardiology who recommends hydration which is already being done. They will see patient Time: 10:04 Reevaluation #3: Patient's lactic acid 3.6. Ceftriaxone ordered at this time fluids are going slowly as patient has a history of CHF. Time: 10:11 Additional Reevaluation(s): Cards recommends stopping Atenolol. Recommends continued hydration. Will have patient admitted to the hospitalist service. Bladder scan with very low value, no indication for straight cath. Still pending and a urine. To air on the side of caution she was given ceftriaxone. Medications Administered Discontinued Medications Generic Name Dose Route Start Last Admin Trade Name Freq PRN Reason Stop Dose Admin Ceftriaxone Sodium 1 gm 12/21/24 10:10 12/21/24 10:20 Ceftriaxone Sodium 1 Gm Vial IVPUSH 12/21/24 10:11 1 gm ONCE ONE Administration Sodium Chloride 1,000 mls @ 999 mls/hr 12/21/24 09:15 12/21/24 10:54 Ns IV 12/21/24 10:15 Infused .Q1H1M BRENDA Infusion Medical Decision Making Medical Decision Making [facility] Narrative: [id number] 74-year-old female presents with feeling unwell, abdominal discomfort, palpitations. When I was evaluating patient initially her heart rate was 76 appeared to be normal sinus rhythm on the monitor, few moments after speaking to patient I noticed that patient had a heart rate of 160 beats per minute appeared to be SVT on the monitor P waves were noted. Immediately EKG obtained showing SVT with a rate of 135. I attempted Valsalva is at the bedside which initially did not help, approximately 5 minutes after trying Valsalva patient had an episode of bradycardia monitor showed asystole quickly shooting up to 30 beats per minute patient was alert and oriented the entire time. Fluids running. She was hooked up to the monitor and code cart at the bedside. Patient also noted to have oxygen saturation of 89-91% on room air. No history of this in the past On exam patient alert and oriented x4. With rapid regular rhythm initially. History and physical exam concerning for dysrhythmia such as sick sinus syndrome, SVT, atrial flutter. Will also rule out PE as patient has tachycardia accompanied by hypoxia. I am concerned for orthostatic hypotension. Will rule out metabolic derangements. At this time I do not suspect infection as causative reason for hypotension and tachycardia Plan labs, imaging, cardiac workup. Differential Diagnosis Differential Diagnoses: The differential diagnosis associated with the presentation includes (History and physical exam concerning for dysrhythmia such as sick sinus syndrome, SVT, atrial flutter. Will also rule out PE as patient has tachycardia accompanied by hypoxia. I am concerned for orthostatic hypotension. Will rule out metabolic derangements. At this time I do not suspect infection) Admission/Observation Consideration of admission/observation: Escalation of care including admission/observation considered (Likely ) Consult Healthcare Provider Management of the patient was discussed with: Hospitalist Lab Data MDM Lab Attestation statement: I reviewed the patient's lab results. 12/21/24 09:26 12/21/24 09:26 Labs: Lab Results 12/21/24 12/21/24 12/21/24 Range/Units 09:26 09:31 12:20 WBC 11.0 H (4.8-10.8) X10*3/uL RBC 5.40 D (4.20-5.50) X10*6/uL Hgb 15.3 D (12.0-16.0) g/dl Hct 44.9 D (37.0-47.0) % MCV 83.1 (80.0-98.0) fL MCH 28.3 (27.0-33.0) pg MCHC 34.1 (31.0-35.0) g/dl RDW 14.5 (11.0-16.0) % Plt Count 310 (160-400) X10*3/uL MPV 8.3 L (9.4-12.3) fL Immature Gran % (Auto) 0.5 H (0.0-0.4) % Neut % (Auto) 63.0 (45-73) % Lymph % (Auto) 27.0 (20-40) % [place] % (Auto) 6.8 (2-11) % Eos % (Auto) 1.9 (0-4) % Baso % (Auto) 0.8 (0-2) % Lymph # (Auto) 3.0 (1.2-4.9) X10*3/uL [place] # (Auto) 0.8 (0.1-1.2) X10*3/uL Eos # (Auto) 0.2 (0.0-0.4) X10*3/uL Baso # (Auto) 0.1 (0.0-0.2) X10*3/uL Abs Immat Gran (auto) 0.05 H (0.00-0.03) X10*3/uL Absolute Neuts (auto) 7.0 (2.0-8.3) x10*3/uL Absolute Nucleated RBC 0.000 (0.0-0.012) X10*3/uL Nucleated RBC % (auto) 0.0 (0.0-0.2) /100WBC PT 11.9 (10.9-12.4) SEC INR 1.0 (0.9-1.1) D-Dimer High Sensitivty < 150 NG/ML Sodium 141 (135-145) mmol/L Potassium 4.2 (3.3-5.1) mmol/L Chloride 104 (96-108) mmol/L Carbon Dioxide 22 (22-29) mmol/L Anion Gap 19 (12-20) BUN 14 (9-16) mg/dL Creatinine 0.94 (0.5-1.4) mg/dL Estim Creat Clear Calc 51.1 Estimated GFR 58 Random Glucose 117 H (60-115) mg/dL Lactic Acid 3.6 H* (0.5-2.0) mmol/L Lactic Acid F/U @ 2Hr 2.1 H* (0.5-2.0) mmol/L Calcium 10.3 H (8.4-10.2) mg/dL Magnesium 2.1 (1.6-2.6) mg/dL Total Bilirubin 1.5 H (0.0-1.0) mg/dL AST 36 H (5-31) U/L ALT 24 (0-31) U/L Alkaline Phosphatase 105 (39-117) U/L Troponin I High Sens 12.9 (<3.5-17.0) ng/L B-Natriuretic Peptide 900 H (<100) pg/mL Total Protein 7.9 (6.5-8.0) g/dL Albumin 4.3 (3.5-5.0) g/dL Influenza Type A (PCR) NEGATIVE (Negative) Influenza Type B (PCR) NEGATIVE (Negative) RSV RNA Qual (PCR) NEGATIVE (Negative) SARS-CoV-2 RNA (RT-PCR) NEGATIVE (Negative) Independent Interpretation I performed an independent interpretation of an: EKG, Plain X-Ray and CT Scan Radiology Impression Discussion of test interpretation with radiology: I have reviewed the radiologist's reading. Independent Historian Clinical information obtained from an independent historian. History obtained from or confirmed by: Other (daughter Betty Dueñas ) External Record Review External record reviewed: Inpatient record, Office record, Outpatient record, Prior outpatient labs, Prior outpatient radiology, Primary care record and Outside ED record Chronic Conditions Patient?s care impacted by: Hypertension and Other (obesity, hyperlipidemia) Critical Care Time Critical Care Time Critical Care Time: Yes Total Critical Care Time: 45 Attestation: I attest to this time spent taking care of the patient, obtaining history, physical, reviewing labs, imaging, treatment of patients condition +/- specialist/hospitalist consult Discharge Plan Discharge Clinical Impression: SVT (supraventricular tachycardia), Urinary frequency, Acidosis, lactic Patient Disposition: Still a Patient Prescriptions: No Action furosemide 20 mg tablet 20 mg PO DAILY Qty: 45 1RF Rx Instructions: Take 1/2 of a tablet (10 mg) daily. atenolol 25 mg tablet 25 mg PO DAILY Qty: 90 3RF Protocol: Hold for SBP/HR < HOLD for SBP < : 90 HOLD for HR < : 60 acetaminophen [Tylenol] 325 mg Tablet 650 mg PO Q6H PRN (Reason: Pain) allopurinol 100 mg tablet 200 mg PO BEDTIME levothyroxine 100 mcg tablet 200 mcg PO TURNER@0600 benazepril 40 mg tablet 40 mg PO DAILY doxycycline monohydrate 100 mg Capsule 100 mg PO Q12H Qty: 14 0RF cefuroxime axetil 500 mg tablet 500 mg PO BID Qty: 14 0RF (DME) T.E.DEnrique Knee Kjtatk-R-Ljyb Misc See Rx Instructions .ROUTE .MEDSUPPLY Qty: 12 0RF Rx Instructions: As directed fluoxetine 20 mg capsule 20 mg PO BEDTIME atorvastatin 20 mg tablet 20 mg PO BEDTIME levothyroxine 100 mcg tablet 100 mcg PO MOTUWETHFRSA@0600 amlodipine 10 mg tablet 10 mg PO BEDTIME gabapentin 300 mg capsule 600 mg PO BEDTIME Print Language: Guamanian
[2024-12-21 10:01] LABS: D Dimer High Sensitivity < 150 NG/ML
[2024-12-21 10:03] LABS: Alanine Aminotransferase 24 U/L (0-31); Albumin Level 4.3 g/dL (3.5-5.0); Alkaline Phosphatase 105 U/L (39-117); Anion Gap 19 (12-20); Aspartate Amino Transferase 36 U/L (5-31); Bilirubin Total 1.5 mg/dL (0.0-1.0); Blood Urea Nitrogen 14 mg/dL (9-16); Calcium 10.3 mg/dL (8.4-10.2); Carbon Dioxide 22 mmol/L (22-29); Chloride 104 mmol/L (96-108); Creatinine Clr Calc Pharmacy 51.1; Estimated Glomerular Filt Rate 58; Glucose Random 117 mg/dL (60-115); Magnesium 2.1 mg/dL (1.6-2.6); Potassium 4.2 mmol/L (3.3-5.1); Sodium 141 mmol/L (135-145); Total Protein 7.9 g/dL (6.5-8.0)
[2024-12-21 10:04] LABS: B Type Natriuretic Peptide 900 pg/mL (<100)
[2024-12-21 10:07] LABS: Troponin-I High Sensitivity 12.9 ng/L (<3.5-17.0)
[2024-12-21 10:11] LABS: Lactic Acid 3.6 mmol/L (0.5-2.0)
[2024-12-21] MEDS: cefTRIAXone sodium 1 GM VIAL IVPUSH (10:20)
[2024-12-21 10:23] LABS: Influenza A PCR NEGATIVE (Negative); Influenza B PCR NEGATIVE (Negative); Resp Syncy Virus RNA Qual PCR NEGATIVE (Negative); SARS COV2 PCR INHOUSE NEGATIVE (Negative)
--- NOTE | 2024-12-21 10:43 | PC.NURSE ---
patient only infused 500mL NS d/t BNP elevated and MD orders to hold on the additional 500mL fluids
--- NOTE | 2024-12-21 11:28 | P.CONCA_ITS ---
History of Present Illness History of Present Illness Date of Service: 12/21/24 Requesting physician: Edtih Schafer Chief complaint: weakness, SVT Narrative: Pleasant 74-year-old female presenting with palpitations which started overnight. She came to the emergency department and was noticed to be in supraventricular tachycardia. She was complaining of palpitations. Valsalva maneuver was tried and she converted but had a prolonged conversion pause of 5.5 seconds and subsequently stayed bradycardic in 30s to 40s but eventually improved back to 40s to 50s which is her baseline. She previously has presented to us with presyncope in the setting of pneumonia in 10/02/2024 and had acute kidney injury at that time. She was bradycardic and her atenolol was decreased from 50 mg to 25 mg. She is feeling much better right now after getting IV fluids. She had CT pulmonary angiogram performed to rule out PE which is currently pending but just reviewing imaging there was nothing obvious centrally. She is complaining of some urinary complaints and is being worked up for UTI also. [facility] Past Medical History Medical History CHF exacerbation Vertebral compression fracture Essential hypertension Non-rheumatic aortic stenosis Chronic diastolic (congestive) heart failure Family History Family History Father Dementia Mother Hypertension Alzheimer disease Surgical History Surgical History History of breast biopsy History of hysterectomy Social History Social History Household Members: Family Housing: House Do you presently have visiting nurse or other home services: No Alcohol intake: never Patient Tobacco Use Status: Former Tobacco user Advance Directives: No Advance Directives Information Provided: No service: No Meds Allergies Allergy/AdvReac Type Severity Reaction Status Date / Time No Known Allergies Allergy Verified 12/21/24 08:58 [No Known Allergies*] Home Medications ?Medication ?Instructions ?Recorded ?Confirmed ?Last Taken ?Type amlodipine 10 mg tablet 10 mg PO BEDTIME 02/08/21 09/25/24 09/24/24 History atorvastatin 20 mg tablet 20 mg PO BEDTIME 02/08/21 09/25/24 09/24/24 History fluoxetine 20 mg capsule 20 mg PO BEDTIME 02/08/21 09/25/24 09/24/24 History gabapentin 300 mg capsule 600 mg PO BEDTIME 02/08/21 09/25/24 09/24/24 History levothyroxine 100 mcg tablet 100 mcg PO MOTUWETHFRSA@0600 02/08/21 09/25/24 09/25/24 History acetaminophen 325 mg tablet 650 mg PO Q6H PRN Pain 02/19/23 09/25/24 09/24/24 History (Tylenol) allopurinol 100 mg tablet 200 mg PO BEDTIME 02/19/23 09/25/24 09/24/24 History levothyroxine 100 mcg tablet 200 mcg PO TURNER@0600 02/19/23 09/25/24 09/22/24 History benazepril 40 mg tablet 40 mg PO DAILY 09/27/24 09/27/24 Unknown History Physical Exam 2 Vital Signs: Vital Signs: Last Vital Signs Temp 96.3 F L 12/21/24 08:50 Pulse 43 L 12/21/24 10:13 Resp 16 12/21/24 10:13 BP 90/49 L 12/21/24 10:13 Pulse Ox 94 12/21/24 10:13 O2 Del Method Room Air 12/21/24 10:13 BMI result Body Mass Index 35.3 GENERAL APPEARANCE: in no acute distress, pleasant. NECK: no carotid bruit, no jugular venous distention. SKIN: no suspicious lesions, warm and dry. HEART: Systolic murmur aortic area with preserved 2nd heart sound., regular rate and rhythm. Bradycardic. LUNGS: clear to auscultation bilaterally. ABDOMEN: soft, nontender. EXTREMITIES: no edema. PERIPHERAL PULSES: equal. NEUROLOGIC: No gross deficits, AAO X 3 Objective Labs and Meds 12/21/24 09:26 12/21/24 09:26 Lab results: Laboratory Results - last 24 hr 12/21/24 12/21/24 09:26 09:31 WBC 11.0 H RBC 5.40 D Hgb 15.3 D Hct 44.9 D MCV 83.1 MCH 28.3 MCHC 34.1 RDW 14.5 Plt Count 310 MPV 8.3 L Immature Gran % (Auto) 0.5 H Neut % (Auto) 63.0 Lymph % (Auto) 27.0 [place] % (Auto) 6.8 Eos % (Auto) 1.9 Baso % (Auto) 0.8 Lymph # (Auto) 3.0 [place] # (Auto) 0.8 Eos # (Auto) 0.2 Baso # (Auto) 0.1 Abs Immat Gran (auto) 0.05 H Absolute Neuts (auto) 7.0 Absolute Nucleated RBC 0.000 Nucleated RBC % (auto) 0.0 PT 11.9 INR 1.0 D-Dimer High Sensitivty < 150 Sodium 141 Potassium 4.2 Chloride 104 Carbon Dioxide 22 Anion Gap 19 BUN 14 Creatinine 0.94 Estim Creat Clear Calc 51.1 Estimated GFR 58 Random Glucose 117 H Lactic Acid 3.6 H* Calcium 10.3 H Magnesium 2.1 Total Bilirubin 1.5 H AST 36 H ALT 24 Alkaline Phosphatase 105 Troponin I High Sens 12.9 B-Natriuretic Peptide 900 H Total Protein 7.9 Albumin 4.3 Influenza Type A (PCR) NEGATIVE Influenza Type B (PCR) NEGATIVE RSV RNA Qual (PCR) NEGATIVE SARS-CoV-2 RNA (RT-PCR) NEGATIVE Assessment and Plan (1) SVT (supraventricular tachycardia): Status: Acute (2) Non-rheumatic aortic stenosis: Status: Acute (3) Bradycardia: Status: Acute Plan 74 year female presenting for palpitations and weakness and noticed to be in supraventricular tachycardia. Valsalva maneuver was done in the emergency department and she converted to sinus rhythm with a long conversion pause of 5.5 seconds. She was asymptomatic during this time and state bradycardic short term but recovered to her baseline of 40s to 50s beats per minute. Reviewing her chart she was in 50s last time when she presented in September with presyncope at the setting of pneumonia. She was advised to decrease the atenolol from 50 to 25 mg at that time. I think currently hold the atenolol. Atenolol is renally cleared and she has CKD with creatinine clearance of 51. I think as atenolol washes out we can try metoprolol or something which does not have renal metabolism. I have discussed the case with electrophysiology and we will make some further decisions as we go forward. 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 She had presyncope before and now had prolonged conversion pause. We will look into whether ablating the SVT is a possibility or if she has recurrent episodes while she is here and requires titration of beta-blockers then maybe putting a permanent pacemaker and antiarrhythmic therapy we will be a possibility 2. We will discuss this as time passes but currently nothing urgent is required. Aortic stenosis murmur by exam and we will do echocardiography to quantify this. Thank you for allowing me to participate in the care of your patient. Please feel free to contact me if you have any questions. Procedures Date of Service Date of Service: 12/21/24
[2024-12-21 11:40] LABS: Reflex Lactate? Lactic Acid Added
[2024-12-21 12:46] LABS: ~Lactic Acid-LAB USE ONLY 2.1 mmol/L (0.5-2.0)
[2024-12-21 13:33] LABS: Appearance Urine Clear; Color Urine Dark Yellow; Glucose Urine UA Negative (Negative); Leukocyte Esterase Urine Trace (Negative); Nitrite Urine Negative (Negative); Specific Gravity - Urine >= 1.030 (1.005-1.025); UMIC TRIGGER UACC YES; Urine Blood Negative (Negative); Urine Ketones Trace mg/dL (Negative); Urine Protein 30 (1+) mg/dL (Neg-Trace)
[2024-12-21 13:42] LABS: Bacteria Urine Trace (None Seen); RBC Urine 0-2 /HPF (0-2); UACC Culture Trigger YES
[2024-12-21 14:23] LABS: Reflex Lactate? 2 Y
[2024-12-21 15:15] LABS: Troponin-I High Sensitivity 13.8 ng/L (<3.5-17.0)
--- NOTE | 2024-12-21 15:22 | PHA.MEDREC ---
Addendum entered by Robert Messina RPh 12/21/24 16:15: Med rec was reviewed by [facility]. Original Note: Pharmacy Consult ? Medication Reconciliation Pharmacy has completed the medication reconciliation. Spoke to pt and family to confirm meds. Per pt, no longer taking allopurinol.
[2024-12-21 15:33] LABS: ~Lactic Acid-LAB USE ONLY 2.8 mmol/L (0.5-2.0)
--- NOTE | 2024-12-21 16:27 | P.HPHOSP_ITS ---
History of Present Illness Date of Service: 12/21/24 Attending physician on admission: Rosalind Brooks Chief Complaint: palpatations 74-year-old female with a medical history significant for diastolic CHF, HTN, nonrheumatic aortic stenosis, HLD, hypothyroid, GERD, and gout came to ED with feeling unwell, fatigue, malaise, vague abdominal discomfort throughout,episode of palpitations that awoke her at approximately 02:00 however she feels like this subsided. She tells me she just does not feel like herself and she is unable to elaborate further . she was having palpitations and weakness and noticed to be in supraventricular tachycardia. Valsalva maneuver was done in the emergency department and she converted to sinus rhythm with a long conversion pause of 5.5 seconds,seen by cardiology in ed-suggested for admission consider above events. she told ed she also had urinary frequency but when asked again she denies it. Denies fevers, chills, headache, vision changes, dizziness, weakness changes in bowel habits. labs imaging ,ekg reviewed Review of Systems 2 Review of Systems: as above. Yes all other systems are reviewed and are negative [facility] Medical History CHF exacerbation Vertebral compression fracture Essential hypertension Non-rheumatic aortic stenosis Chronic diastolic (congestive) heart failure Family History Father Dementia Mother Hypertension Alzheimer disease Surgical History History of breast biopsy History of hysterectomy Social History Household Members: Family Housing: House Do you presently have visiting nurse or other home services: No Alcohol intake: never Patient Tobacco Use Status: Former Tobacco user Advance Directives: No Advance Directives Information Provided: No service: No Meds Allergies Allergy/AdvReac Type Severity Reaction Status Date / Time No Known Allergies Allergy Verified 12/21/24 08:58 [No Known Allergies*] Active Medications: Current Medications Acetaminophen (Acetaminophen 325 Mg Tablet) 650 mg PO Q6H PRN PRN Reason: Pain, Mild 1-3,fever,headache Atorvastatin Calcium (Atorvastatin Calcium 20 Mg Tablet) 20 mg PO BEDTIME BRENDA Atropine Sulfate (Atropine Sulfate 1 Mg/10 Ml Syringe) 1 mg IVPUSH ONCE PRN PRN Reason: Bradycardia Calcium Carbonate (Calcium Carbonate 750 Mg Tab.Chew) 750 mg PO Q4H PRN PRN Reason: Heartburn Fluoxetine HCl (Fluoxetine Hcl 20 Mg Capsule) 20 mg PO BEDTIME BRENDA Furosemide (Furosemide 20 Mg Tablet) 10 mg PO DAILY [facility]; Protocol Gabapentin (Gabapentin 300 Mg Capsule) 600 mg PO BEDTIME BRENDA Levothyroxine Sodium (Levothyroxine Sodium 100 Mcg Tablet) 100 mcg PO MOTUWETHFRSA@0600 BRENDA Levothyroxine Sodium (Levothyroxine Sodium 200 Mcg Tablet) 200 mcg PO TURNER@0600 [facility] Magnesium Hydroxide (Milk Of Magnesia 30 Ml Oral.Susp) 30 ml PO DAILY PRN PRN Reason: Constipation Melatonin (Melatonin 3 Mg Tablet) 6 mg PO BEDTIME PRN PRN Reason: Insomnia Omeprazole (Omeprazole 20 Mg Capsule.Dr) 20 mg PO BID@0630,1630 [facility] Sodium Chloride (0.9 % Sodium Chloride Flush 3 Ml Syringe) 3 ml IVFLUSH QSHIFT [facility] Home Medications ?Medication ?Instructions ?Recorded ?Confirmed ?Last Taken ?Type amlodipine 10 mg tablet 10 mg PO BEDTIME 02/08/21 12/21/24 12/20/24 History atorvastatin 20 mg tablet 20 mg PO BEDTIME 02/08/21 12/21/24 12/20/24 History fluoxetine 20 mg capsule 20 mg PO BEDTIME 02/08/21 12/21/24 12/20/24 History gabapentin 300 mg capsule 600 mg PO BEDTIME 02/08/21 12/21/24 12/20/24 History levothyroxine 100 mcg tablet 100 mcg PO MOTUWETHFRSA@0600 02/08/21 12/21/24 12/20/24 History acetaminophen 325 mg tablet 650 mg PO Q6H PRN Pain 02/19/23 12/21/24 09/24/24 History (Tylenol) levothyroxine 100 mcg tablet 200 mcg PO TURNER@0600 02/19/23 12/21/24 12/15/24 History benazepril 40 mg tablet 40 mg PO DAILY 09/27/24 12/21/24 12/20/24 History furosemide 20 mg tablet 10 mg PO DAILY 12/21/24 12/21/24 12/20/24 History omeprazole 20 mg capsule,delayed 20 mg PO BID@0630,1630 12/21/24 12/21/24 12/20/24 History release Physical Exam 2 Vital Signs and Narrative: Vital Signs: Last Vital Signs Temp 97.9 F 12/21/24 16:25 Pulse 50 12/21/24 16:25 Resp 18 12/21/24 16:25 BP 143/67 H 12/21/24 16:25 Pulse Ox 97 12/21/24 16:25 O2 Del Method Room Air 12/21/24 16:25 BMI result Body Mass Index 35.3 General: AOx3, no acute distress Resp: air entry fair , no rales . CVS: rythem regular but bradycardia,s1s2 heard. GI: +BS, NT, no distention Skin: Warm, dry Extremities: No edema Psych: Appropriate affect Results Labs 12/21/24 09:26 12/21/24 09:26 Labs: Laboratory Results - last 24 hr 12/21/24 12/21/24 12/21/24 09:26 09:31 12:20 MCV 83.1 MCH 28.3 MCHC 34.1 RDW 14.5 Plt Count 310 MPV 8.3 L Immature Gran % (Auto) 0.5 H Neut % (Auto) 63.0 Lymph % (Auto) 27.0 Rankin % (Auto) 6.8 Eos % (Auto) 1.9 Baso % (Auto) 0.8 Lymph # (Auto) 3.0 Rankin # (Auto) 0.8 Eos # (Auto) 0.2 Baso # (Auto) 0.1 Abs Immat Gran (auto) 0.05 H Absolute Neuts (auto) 7.0 Absolute Nucleated RBC 0.000 Nucleated RBC % (auto) 0.0 PT 11.9 INR 1.0 D-Dimer High Sensitivty < 150 Anion Gap 19 Estim Creat Clear Calc 51.1 Estimated GFR 58 Random Glucose 117 H Lactic Acid 3.6 H* Lactic Acid F/U @ 2Hr 2.1 H* Lactic Acid F/U @ 4Hr Calcium 10.3 H Magnesium 2.1 Total Bilirubin 1.5 H AST 36 H ALT 24 Alkaline Phosphatase 105 Troponin I High Sens 12.9 B-Natriuretic Peptide 900 H Total Protein 7.9 Albumin 4.3 Urine Color Urine Appearance Urine pH Ur Specific [place] Urine Protein Urine Glucose (UA) Urine Ketones Urine Blood Urine Nitrite Ur Leukocyte Esterase Urine RBC Urine WBC Ur Squamous Epith Cells Urine Bacteria Hyaline Casts Influenza Type A (PCR) NEGATIVE Influenza Type B (PCR) NEGATIVE RSV RNA Qual (PCR) NEGATIVE SARS-CoV-2 RNA (RT-PCR) NEGATIVE 12/21/24 12/21/24 13:17 14:44 MCV MCH MCHC RDW Plt Count MPV Immature Gran % (Auto) Neut % (Auto) Lymph % (Auto) [place] % (Auto) Eos % (Auto) Baso % (Auto) Lymph # (Auto) [place] # (Auto) Eos # (Auto) Baso # (Auto) Abs Immat Gran (auto) Absolute Neuts (auto) Absolute Nucleated RBC Nucleated RBC % (auto) PT INR D-Dimer High Sensitivty Anion Gap Estim Creat Clear Calc Estimated GFR Random Glucose Lactic Acid Lactic Acid F/U @ 2Hr Lactic Acid F/U @ 4Hr 2.8 H* Calcium Magnesium Total Bilirubin AST ALT Alkaline Phosphatase Troponin I High Sens 13.8 B-Natriuretic Peptide Total Protein Albumin Urine Color Dark Yellow Urine Appearance Clear Urine pH 6.0 Ur Specific [place] >= 1.030 H Urine Protein 30 (1+) H Urine Glucose (UA) Negative Urine Ketones Trace Urine Blood Negative Urine Nitrite Negative Ur Leukocyte Esterase Trace H Urine RBC 0-2 Urine WBC 6-10 H Ur Squamous Epith Cells 3-5 Urine Bacteria Trace Hyaline Casts 3-5 Influenza Type A (PCR) Influenza Type B (PCR) RSV RNA Qual (PCR) SARS-CoV-2 RNA (RT-PCR) Assessment and Plan (1) Bradycardia: Status: Acute (2) Acidosis, lactic: Status: Acute (3) Urinary frequency: Status: Acute (4) SVT (supraventricular tachycardia): Status: Acute Plan 74-year-old female with a medical history significant for diastolic CHF, HTN, nonrheumatic aortic stenosis, HLD, hypothyroid, GERD, and gout-came with feeling unwell and palpatations. SVT :noticed to be in supraventricular tachycardia. Valsalva maneuver was done in the emergency department and she converted to sinus rhythm with a long conversion pause of 5.5. question of bradycardia in setting of bb vs tachy jeri currently boderline bardycardia-but symptoms improved. added tsh levels cta negative for pulm emboli moniter on tele seen by cardio-hold bb,will hold bp meds pacer pads and atropin at bedside cardiology -will decide further either svt ablation vs ppm hypotension and acute lactic acisosis sec to svt. not septic at present. improved spontaneously with improvement of hr . possible [id number]. ? UTI :UA has some pyuria and trace bacteruria given ceftriaxone ib ed urine culture and blood cultures pending cta shows ch lung changes -patient does not have respiratory symptoms ,rsv/flu/covid neg hlp: continue statin Hypothyroidism; continue levothyroxine patient management d/w patient and her daughter ,brother in detail -they understand and agreement with above plan, time spent 70 min. patient will benefit from 2 midnight stays considering symptomatic svt vs tachybardy -need tele monitering ,off bb,cardiology followup for further planning. Quality Stroke Does the patient have a stroke diagnosis?: No VTE Prior VTE?: No VTE Risk Level:: Medical - moderate - high VTE Device Contraindication: N/A - Device Ordered VTE Drug Contraindication: N/A - Med Ordered
[2024-12-21] MEDS: Omeprazole 20 MG CAPSULE.DR PO (16:55)
[2024-12-21] MEDS: 0.9 % Sodium Chloride Flush 3 ML SYRINGE IVFLUSH ×2 (16:59→20:06)
[2024-12-21] MEDS: Enoxaparin Sodium 40 MG/0.4 ML SYRINGE SUBCUT (17:11)
[2024-12-21 17:35] LABS: Cancel Lactic Acid Canceled
[2024-12-21 17:37] LABS: Thyroid Stimulating Hormone 3.13 uIU/mL (0.32-4.0)
[2024-12-21] MEDS: Atorvastatin Calcium 20 MG TABLET PO (20:05)
[2024-12-21] MEDS: FLUoxetine HCl 20 MG CAPSULE PO (20:05)
[2024-12-21] MEDS: Gabapentin 300 MG CAPSULE 600 MG PO (20:06)
[2024-12-22 03:37] VITALS: BP 152/69; PULSE 59; RESP 18; TEMP 36.6; O2SAT 93
[2024-12-22] MEDS: Levothyroxine Sodium 200 MCG TABLET PO (06:04)
[2024-12-22] MEDS: Omeprazole 20 MG CAPSULE.DR PO ×2 (06:04→16:13)
[2024-12-22 07:12] VITALS: BP 135/63; PULSE 56; RESP 18; TEMP 36.6; O2SAT 94
[2024-12-22 08:37] LABS: Hematocrit 38.6 % (37.0-47.0); Hemoglobin 12.8 g/dl (12.0-16.0); Mean Corpuscular HGB Conc 33.2 g/dl (31.0-35.0); Mean Corpuscular Hemoglobin 28.3 pg (27.0-33.0); Mean Corpuscular Volume 85.4 fL (80.0-98.0); Mean Platelet Volume 8.5 fL (9.4-12.3); Platelet Count 236 X10*3/uL (160-400); Red Blood Count 4.52 X10*6/uL (4.20-5.50); Red Cell Distribution Width 14.5 % (11.0-16.0); White Blood Count 7.8 X10*3/uL (4.8-10.8)
[2024-12-22 08:53] LABS: Blood Urea Nitrogen 15 mg/dL (9-16); Creatinine Clr Calc Pharmacy 48.2; Estimated Glomerular Filt Rate 53; Glucose Random 99 mg/dL (60-115)
[2024-12-22 09:02] LABS: Anion Gap 15 (12-20); Calcium 9.4 mg/dL (8.4-10.2); Carbon Dioxide 25 mmol/L (22-29); Chloride 105 mmol/L (96-108); Potassium 3.8 mmol/L (3.3-5.1); Sodium 141 mmol/L (135-145)
[2024-12-22] MEDS: 0.9 % Sodium Chloride Flush 3 ML SYRINGE IVFLUSH ×3 (09:44→21:06)
[2024-12-22] MEDS: cefTRIAXone sodium 1 GM VIAL IVPUSH (09:44)
[2024-12-22] MEDS: Furosemide 20 MG TABLET 10 MG PO (09:44)
--- NOTE | 2024-12-22 10:38 | MHC.CM.PN ---
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
[2024-12-22 11:03] VITALS: BP 149/67; PULSE 55; RESP 18; TEMP 36.4; O2SAT 96
--- NOTE | 2024-12-22 11:42 | PM.PNCARD ---
Subjective Subjective Date of Service: 12/22/24 Interval history: Seen examined at bedside. Feeling better. Telemetry reviewed. He is currently off atenolol. Physical Exam Vital Signs: Last Vital Signs Temp 97.6 F 12/22/24 11:03 Pulse 55 12/22/24 11:03 Resp 18 12/22/24 11:03 BP 149/67 H 12/22/24 11:03 Pulse Ox 96 12/22/24 11:03 O2 Del Method Room Air 12/22/24 11:03 BMI result Body Mass Index 36.9 GENERAL APPEARANCE: in no acute distress, pleasant. NECK: no carotid bruit, no jugular venous distention. SKIN: no suspicious lesions, warm and dry. HEART: Systolic murmur aortic area with preserved 2nd heart sound., regular rate and rhythm. Bradycardic. LUNGS: clear to auscultation bilaterally. ABDOMEN: soft, nontender. EXTREMITIES: no edema. PERIPHERAL PULSES: equal. NEUROLOGIC: No gross deficits, AAO X 3 Objective Labs and Meds 12/22/24 08:02 12/22/24 08:02 Lab results: Laboratory Results - last 24 hr 12/21/24 12/21/24 12/21/24 12:20 13:17 14:44 WBC RBC Hgb Hct MCV MCH MCHC RDW Plt Count MPV Absolute Nucleated RBC Nucleated RBC % (auto) Sodium Potassium Chloride Carbon Dioxide Anion Gap BUN Creatinine Estim Creat Clear Calc Estimated GFR Random Glucose Lactic Acid F/U @ 2Hr 2.1 H* Lactic Acid F/U @ 4Hr 2.8 H* Calcium Troponin I High Sens 13.8 TSH 3.13 Urine Color Dark Yellow Urine Appearance Clear Urine pH 6.0 Ur Specific [place] >= 1.030 H Urine Protein 30 (1+) H Urine Glucose (UA) Negative Urine Ketones Trace Urine Blood Negative Urine Nitrite Negative Ur Leukocyte Esterase Trace H Urine RBC 0-2 Urine WBC 6-10 H Ur Squamous Epith Cells 3-5 Urine Bacteria Trace Hyaline Casts 3-5 12/22/24 08:02 WBC 7.8 RBC 4.52 Hgb 12.8 Hct 38.6 MCV 85.4 MCH 28.3 MCHC 33.2 RDW 14.5 Plt Count 236 MPV 8.5 L Absolute Nucleated RBC 0.000 Nucleated RBC % (auto) 0.0 Sodium 141 Potassium 3.8 Chloride 105 Carbon Dioxide 25 Anion Gap 15 BUN 15 Creatinine 1.02 Estim Creat Clear Calc 48.2 Estimated GFR 53 Random Glucose 99 Lactic Acid F/U @ 2Hr Lactic Acid F/U @ 4Hr Calcium 9.4 D Troponin I High Sens TSH Urine Color Urine Appearance Urine pH Ur Specific [place] Urine Protein Urine Glucose (UA) Urine Ketones Urine Blood Urine Nitrite Ur Leukocyte Esterase Urine RBC Urine WBC Ur Squamous Epith Cells Urine Bacteria Hyaline Casts Progress Note: A&P Assessment and plan (1) Bradycardia: Status: Acute (2) SVT (supraventricular tachycardia): Status: Acute (3) Chronic diastolic (congestive) heart failure: Status: Acute Plan [age] year female presenting with palpitations and weakness in the setting of supraventricular tachycardia. In the ER she converted to sinus rhythm with a conversion pause of 5.5 seconds. She did not have syncope or any symptoms at the time of conversion pause. She has been bradycardic previously and atenolol was decreased from 50-25 mg. Atenolol has been discontinued at this point. 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 Options are to put a permanent pacemaker and start her on antiarrhythmic therapy versus SVT ablation and stopping atenolol. I have discussed the case with Dr. Barrera who is an medical program specialist. He is more in favor of doing SVT ablation and monitoring the heart rate after that. This can be done as outpatient with the patient's daughter is concerned that patient does not tell her about symptoms and is wondering whether this can be done inpatient. I will let them have a discussion about this. If the family felt strongly that we transferred to [facility] then I will look into that. Thank you for allowing me to participate in the care of your patient. Please feel free to contact me if you have any questions. Time Spent With Patient Time: Total time managing care of this patient today ____ minutes. Progress Note: Quality Stroke Does the patient have a stroke diagnosis?: No Procedures Date of Service Date of Service: 12/22/24
--- NOTE | 2024-12-22 13:00 | PM.DS ---
DS: Providers Provider Date of Service: 12/22/24 Date of admission: 12/21/24 13:22 Date of discharge: 12/22/24 Primary care physician: Ilia Cates III, MD Consults: 12/21/24 10:48 Consult to Cardiology Routine Consulting Provider: [facility] Reason for consultation: bradycardia Attending physician on discharge: Rosalind Brooks Discharging clinician: Rosalind Brooks DS: Diagnosis Discharge Diagnosis (1) Bradycardia: Status: Acute (2) SVT (supraventricular tachycardia): Status: Acute (3) Chronic diastolic (congestive) heart failure: Status: Acute DS: Summary Hospital Course Hospital Course: HPI:74-year-old female with a medical history significant for diastolic CHF, HTN, nonrheumatic aortic stenosis, HLD, hypothyroid, GERD, and gout came to ED with feeling unwell, fatigue, malaise, vague abdominal discomfort throughout,episode of palpitations that awoke her at approximately 02:00 however she feels like this subsided. She tells me she just does not feel like herself and she is unable to elaborate further . she was having palpitations and weakness and noticed to be in supraventricular tachycardia. Valsalva maneuver was done in the emergency department and she converted to sinus rhythm with a long conversion pause of 5.5 seconds,seen by cardiology in ed-suggested for admission consider above events. she told ed she also had urinary frequency but when asked again she denies it. Denies fevers, chills, headache, vision changes, dizziness, weakness changes in bowel habits. labs imaging ,ekg reviewed. Hospital course: 74 y/o F with palpitations and weakness in the setting of supraventricular tachycardia. In the ER she converted to sinus rhythm with a conversion pause of 5.5 seconds. She did not have syncope or any symptoms at the time of conversion pause. her atenolol and bp meds placed on hold due to boderline hr and hypotension episode , workup including cta -negative for pulmonary emboli, tele has bradycardia but patient is asymptomatic. 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 Patient will be going to [facility] for above-mentioned reason. cardiology d/w Dr. Barrera who is an sheetfed press operator(in [facility]). keep npo past midnight for above. hypotension and acute lactic acidosis -resolved with improvement in heart rate, so likely due to SVT episode. Possible UTI: Urine culture blood culture pending- patient is on ceftriaxone. ct abd -no acute process , has 2.5 x 2.2 cm left adrenal nodule, not significantly changed from [address] supporting incidental adenoma- outpatient follow up. plan: stop atenolol, hold amlodipine and lisinopril introduce slowly after bp stablises. Urine culture blood culture pending- patient is on ceftriaxone. Above management discussed with the patient and patient daughter in detail length they understand and in agreement with the above plan, time spent 40 minute. Time Attestation Total time managing care of this patient today: 40 mintues. Discharge Coordination Time (in mins): 40 min Quality: Safe Use of Opioids Does Pt have an Active Cancer Diagnosis on the Problem List?: No Quality: Stroke Does the patient have a stroke diagnosis?: No Physical Exam Vital Signs: Vital Signs: Last Vital Signs Temp 97.6 F 12/22/24 11:03 Pulse 55 12/22/24 11:03 Resp 18 12/22/24 11:03 BP 149/67 H 12/22/24 11:03 Pulse Ox 96 12/22/24 11:03 O2 Del Method Room Air 12/22/24 11:03 BMI result Body Mass Index 36.9 Appearance: Alert.? Oriented X3.? cvs: rrr, [id number]. res: clear to auscultation ,no rhonchii or wheezing abd: no rebound or guarding ,nt, bs present. ext pulses present , no cyanosis. neuro: axo3 , nonfocal. DS: Data Data Completed and Pending Labs on day of discharge: Laboratory Results - last 24 hr 12/21/24 12/21/24 12/22/24 13:17 14:44 08:02 WBC 7.8 RBC 4.52 Hgb 12.8 Hct 38.6 MCV 85.4 MCH 28.3 MCHC 33.2 RDW 14.5 Plt Count 236 MPV 8.5 L Absolute Nucleated RBC 0.000 Nucleated RBC % (auto) 0.0 Sodium 141 Potassium 3.8 Chloride 105 Carbon Dioxide 25 Anion Gap 15 BUN 15 Creatinine 1.02 Estim Creat Clear Calc 48.2 Estimated GFR 53 Random Glucose 99 Lactic Acid F/U @ 4Hr 2.8 H* Calcium 9.4 D Troponin I High Sens 13.8 TSH 3.13 Urine Color Dark Yellow Urine Appearance Clear Urine pH 6.0 Ur Specific [place] >= 1.030 H Urine Protein 30 (1+) H Urine Glucose (UA) Negative Urine Ketones Trace Urine Blood Negative Urine Nitrite Negative Ur Leukocyte Esterase Trace H Urine RBC 0-2 Urine WBC 6-10 H Ur Squamous Epith Cells 3-5 Urine Bacteria Trace Hyaline Casts 3-5 Preliminary micro results at discharge 12/21/24 09:26 Blood Culture - Preliminary Blood - Venous No growth after 24 hours. 12/21/24 09:26 Blood Culture - Preliminary Blood - Venous No growth after 24 hours. Discharge Plan Discharge Anticipated Discharge Date/Time: 12/22/24 12:46 Patient Disposition: Xfer [facility] Discharge Diagnosis: svt ,bradycardia , hypotension ,?uti Referrals: Ilia Cates III, MD [Primary Care Provider] - 1 Week Discharge Medications: New ceftriaxone 1 gram Recon Soln 1 g IVPUSH Q24H Qty: 1 0RF Continued omeprazole 20 mg capsule,delayed release(DR/EC) 20 mg PO BID@0630,1630 furosemide 20 mg tablet 10 mg PO DAILY Rx Instructions: Take 1/2 of a tablet (10 mg) daily. acetaminophen [Tylenol] 325 mg Tablet 650 mg PO Q6H PRN (Reason: Pain) levothyroxine 100 mcg tablet 200 mcg PO TURNER@0600 (DME) T.E.D. Knee [id number] Misc See Rx Instructions .ROUTE .MEDSUPPLY Qty: 12 0RF Rx Instructions: As directed fluoxetine 20 mg capsule 20 mg PO BEDTIME atorvastatin 20 mg tablet 20 mg PO BEDTIME levothyroxine 100 mcg tablet 100 mcg PO MOTUWETHFRSA@0600 gabapentin 300 mg capsule 600 mg PO BEDTIME Held benazepril 40 mg tablet 40 mg PO DAILY Hold Instructions: Resume on 12/31/24. amlodipine 10 mg tablet 10 mg PO BEDTIME Hold Instructions: Resume on 12/31/24. Discontinued atenolol 25 mg tablet 25 mg PO DAILY Qty: 90 3RF Protocol: Hold for SBP/HR < HOLD for SBP < : 90 HOLD for HR < : 60 Discharge Orders: Discharge Order (Routine); Ordered 12/22/24 Ordered By: Rosalind Brooks Diet: Advance to usual diet Activity on Discharge: As tolerated Stand Alone Forms: Patient Portal Discharge page Print Language: Beninese Care Plan Goals: 74 y/o F with palpitations and weakness in the setting of supraventricular tachycardia. In the ER she converted to sinus rhythm with a conversion pause of 5.5 seconds. She did not have syncope or any symptoms at the time of conversion pause. her atenolol and bp meds placed on hold due to boderline hr and hypotension episode , workup including cta -negative for pulmonary emboli, tele has bradycardia but patient is asymptomatic. 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 Patient will be going to [facility] for above-mentioned reason. cardiology d/w Dr. Barrera who is an sheetfed press operator(in [place] [facility]). keep npo past midnight for above. hypotension and acute lactic acidosis -resolved with improvement in heart rate, so likely due to SVT episode. Possible UTI: Urine culture blood culture pending- patient is on ceftriaxone. Health Concerns: as above. Plan of Treatment: stop atenolol, hold amlodipine and lisinopril introduce slowly after bp stablises. Urine culture blood culture pending- patient is on ceftriaxone. Assessment: as above. Patient Instructions: Supraventricular Tachycardia (GEN)
[2024-12-22 15:14] VITALS: BP 133/68; PULSE 55; RESP 18; TEMP 36.6; O2SAT 94
[2024-12-22] MEDS: Enoxaparin Sodium 40 MG/0.4 ML SYRINGE SUBCUT (16:14)
[2024-12-22 19:35] VITALS: BP 134/63; PULSE 66; RESP 18; TEMP 36.2; O2SAT 97
[2024-12-22] MEDS: Atorvastatin Calcium 20 MG TABLET PO (21:04)
[2024-12-22] MEDS: FLUoxetine HCl 20 MG CAPSULE PO (21:05)
[2024-12-22] MEDS: Gabapentin 300 MG CAPSULE 600 MG PO (21:05)
--- NOTE | 2024-12-22 22:16 | ECG_ITS ---
Test Reason : cp Blood Pressure : */* mmHG Vent. Rate : 155 BPM Atrial Rate : * BPM P-R Int : * ms QRS Dur : 82 ms QT Int : 292 ms P-R-T Axes : * -25 148 degrees QTcB Int : 469 ms Atrial fibrillation with rapid ventricular response Moderate voltage criteria for LVH, may be normal variant ( R in aVL , Michael product ) Anteroseptal infarct , age undetermined Marked ST abnormality, possible lateral subendocardial injury Abnormal ECG When compared with ECG of 21-Dec-2024 09:44, Atrial fibrillation with rapid ventricular response has replaced Sinus bradycardia Rate related ischemic chnages noted Referred By: Rosalind Brooks Electronically Signed By: PHUC MARCANO MD
[2024-12-22 23:24] VITALS: BP 132/72; PULSE 115; RESP 18; TEMP 36.1; O2SAT 98
[2024-12-23] VITALS (9 sets, daily range): BP systolic 132–155; BP diastolic 63–87; PULSE 57–165; RESP 14–18; TEMP 36–36.9; O2SAT 92–97
[2024-12-23] MEDS: Metoprolol Tartrate 5 MG/5 ML VIAL IVPUSH ×2 (01:02→01:27)
[2024-12-23] MEDS: dilTIAZem HCL 50 MG/10 ML VIAL 15 MG IVPUSH (02:42)
[2024-12-23] MEDS: Levothyroxine Sodium 100 MCG TABLET PO (06:30)
[2024-12-23] MEDS: Omeprazole 20 MG CAPSULE.DR PO ×2 (06:30→16:03)
--- NOTE | 2024-12-23 07:08 | ECG_ITS ---
Test Reason : sinus jeri Blood Pressure : */* mmHG Vent. Rate : 54 BPM Atrial Rate : 54 BPM P-R Int : 154 ms QRS Dur : 78 ms QT Int : 436 ms P-R-T Axes : 46 -19 19 degrees QTcB Int : 413 ms Sinus bradycardia Minimal voltage criteria for LVH, may be normal variant ( R in aVL ) Borderline ECG When compared with ECG of 23-Dec-2024 03:15, Vent. rate has decreased by 70 bpm Sinus bradycardia has replaced Atrial tachycardia Referred By: Rosalind Brooks Electronically Signed By: PHUC MARCANO MD
--- NOTE | 2024-12-23 07:49 | HO.PM.IMPN ---
Subjective Subjective Date of Service: 12/23/24 Interval History: bradycardia Review of Systems seems asymptomatic Physical Exam Vital Signs: Vital Signs: Last Vital Signs BMI result Body Mass Index 36.9 vitals from 12/23/24 reviewed General: AOx3, no acute distress Resp: air entry fair , no rales . CVS: rythem regular but bradycardia,s1s2 heard. GI: +BS, NT, no distention Skin: Warm, dry Extremities: No edema Psych: Appropriate affect Objective Data Active Medications Acetaminophen (Acetaminophen 325 Mg Tablet) 650 mg PO Q6H PRN PRN Reason: Pain, Mild 1-3,fever,headache Atorvastatin Calcium (Atorvastatin Calcium 20 Mg Tablet) 20 mg PO BEDTIME [facility] Last Admin: 12/22/24 21:04 Dose: 20 mg Documented By: DERIAN Atropine Sulfate (Atropine Sulfate 1 Mg/10 Ml Syringe) 1 mg IVPUSH ONCE PRN PRN Reason: Bradycardia Calcium Carbonate (Calcium Carbonate 750 Mg Tab.Chew) 750 mg PO Q4H PRN PRN Reason: Heartburn Ceftriaxone Sodium (Ceftriaxone Sodium 1 Gm Vial) 1 gm IVPUSH Q24H [facility] Last Admin: 12/22/24 09:44 Dose: 1 gm Documented By: DESI Enoxaparin Sodium (Enoxaparin Sodium 40 Mg/0.4 Ml Syringe) 40 mg SUBCUT Q24H [facility] Last Admin: 12/22/24 16:14 Dose: 40 mg Documented By: DESI Fluoxetine HCl (Fluoxetine Hcl 20 Mg Capsule) 20 mg PO BEDTIME [facility] Last Admin: 12/22/24 21:05 Dose: 20 mg Documented By: DERIAN Furosemide (Furosemide 20 Mg Tablet) 10 mg PO DAILY [facility]; Protocol Last Admin: 12/22/24 09:44 Dose: 10 mg Documented By: DESI Gabapentin (Gabapentin 300 Mg Capsule) 600 mg PO BEDTIME [facility] Last Admin: 12/22/24 21:05 Dose: 600 mg Documented By: DERIAN Levothyroxine Sodium (Levothyroxine Sodium 100 Mcg Tablet) 100 mcg PO MOTUWETHFRSA@0600 [facility] Last Admin: 12/23/24 06:30 Dose: 100 mcg Documented By: TARYN Levothyroxine Sodium (Levothyroxine Sodium 200 Mcg Tablet) 200 mcg PO TURNER@0600 [facility] Last Admin: 12/22/24 06:04 Dose: 200 mcg Documented By: ОЛЕГ Magnesium Hydroxide (Milk Of Magnesia 30 Ml Oral.Susp) 30 ml PO DAILY PRN PRN Reason: Constipation Melatonin (Melatonin 3 Mg Tablet) 6 mg PO BEDTIME PRN PRN Reason: Insomnia Omeprazole (Omeprazole 20 Mg Capsule.Dr) 20 mg PO BID@0630,1630 [facility] Last Admin: 12/23/24 06:30 Dose: 20 mg Documented By: SALRAPHAEL Sodium Chloride (0.9 % Sodium Chloride Flush 3 Ml Syringe) 3 ml IVFLUSH QSHIFT [facility] Last Admin: 12/22/24 21:06 Dose: 3 ml Documented By: GUSHMAZ Labs 12/22/24 08:02 12/22/24 08:02 Labs: Laboratory Results - last 24 hr 12/22/24 08:02 MCV 85.4 MCH 28.3 MCHC 33.2 RDW 14.5 Plt Count 236 MPV 8.5 L Absolute Nucleated RBC 0.000 Nucleated RBC % (auto) 0.0 Anion Gap 15 Estim Creat Clear Calc 48.2 Estimated GFR 53 Random Glucose 99 Calcium 9.4 D Microbiology Microbiology Results: Microbiology 12/21/24 09:26 Blood Culture - Preliminary Blood - Venous No growth after 24 hours. 12/21/24 Unknown Urine Culture - Final Urine clean catch - Clean Catch Midstream 12/21/24 09:26 Blood Culture - Preliminary Blood - Venous No growth after 24 hours. Assessment and Plan (1) Tachy-jeri syndrome: Status: Acute Plan 74-year-old female with a medical history significant for diastolic CHF, HTN, nonrheumatic aortic stenosis, HLD, hypothyroid, GERD, and gout-came with feeling unwell and palpatations. SVT :noticed to be in supraventricular tachycardia. Valsalva maneuver was done in the emergency department and she converted to sinus rhythm with a long conversion pause of 5.5. question of bradycardia in setting of bb vs tachy jeri currently boderline bardycardia-but symptoms improved. added tsh levels cta negative for pulm emboli moniter on tele seen by cardio-hold bb,will hold bp meds pacer pads and atropin at bedside cardiology -will decide further either svt ablation vs ppm hypotension and acute lactic acisosis sec to svt. not septic at present. improved spontaneously with improvement of hr . possible [id number]. ? UTI :UA has some pyuria and trace bacteruria given ceftriaxone ib ed urine culture and blood cultures pending cta shows ch lung changes -patient does not have respiratory symptoms ,rsv/flu/covid neg hlp: continue statin Hypothyroidism; continue levothyroxine Quality Stroke Does the patient have a stroke diagnosis?: No VTE Prior VTE?: No VTE Risk Level:: Medical - moderate - high VTE Device Contraindication: N/A - Device Ordered VTE Drug Contraindication: N/A - Med Ordered
--- NOTE | 2024-12-23 08:21 | MHC.CM.PN ---
Patient will transfer to [facility] today.
--- NOTE | 2024-12-23 09:04 | ECG_ITS ---
Test Reason : arrythmia Blood Pressure : */* mmHG Vent. Rate : 124 BPM Atrial Rate : 124 BPM P-R Int : 168 ms QRS Dur : 80 ms QT Int : 318 ms P-R-T Axes : -11 -26 70 degrees QTcB Int : 456 ms Atrial tachycardia Moderate voltage criteria for LVH, may be normal variant ( R in aVL , Re[place] product ) Nonspecific ST and T wave abnormality Abnormal ECG When compared with ECG of 23-Dec-2024 03:14, Atrial tachycardia has replaced Atrial fibrillation with rapid ventricular response Referred By: Rosalind Brooks Electronically Signed By: PHUC MARCANO MD
[2024-12-23] MEDS: Furosemide 20 MG TABLET 10 MG PO (09:18)
[2024-12-23] MEDS: cefTRIAXone sodium 1 GM VIAL IVPUSH (09:19)
[2024-12-23] MEDS: 0.9 % Sodium Chloride Flush 3 ML SYRINGE IVFLUSH ×3 (09:19→23:49)
--- NOTE | 2024-12-23 10:13 | P.PNCA_ITS ---
Subjective Subjective Date of Service: 12/23/24 Principal diagnosis: Palpitations, bradycardia. Interval history: Patient last night went into atrial fibrillation rapid ventricular response. Received multiple rate lowering medication subsequently converted to sinus bradycardia. Patient was mostly sleeping during that time but had some symptoms of palpitation when she was woken up. As per the daughter was at bedside she says she has been having symptoms fatigue and tiredness and gradually deteriorating over time. Daughter says she has never had any symptoms of or history of atrial fibrillation in the past. Review of Systems Constitutional: Reports fatigue (Slowly and gradually declining) Eyes: Reports no additional eye complaints Cardiovascular: Denies chest pain, Denies leg edema, Reports lightheadedness, Reports palpitations and Denies dyspnea Respiratory: Reports no additional respiratory complaints and Denies dyspnea Gastrointestinal: Reports no additional gastrointestinal complaints Reports system reviewed and no additional complaints, except as documented Psychiatric: Reports no additional psychiatric complaints Endocrine: Reports fatigue (Slowly and gradually declining) and Reports palpitations Physical Exam Vital Signs: Last Vital Signs Temp 97.7 F 12/23/24 07:28 Pulse 57 12/23/24 07:28 Resp 18 12/23/24 07:28 BP 155/70 H 12/23/24 07:28 Pulse Ox 95 12/23/24 07:28 O2 Del Method Room Air 12/23/24 07:28 BMI result Body Mass Index 36.9 Const General: cooperative, comfortable, alert and awake Nutritional Appearance: obese Orientation/consciousness: patient oriented x3 Neck Neck: Yes trachea midline, Yes supple and Yes no JVD Resp Effort & Inspection: normal respiratory effort Auscultation: clear to auscultation bilaterally Cardio Rate: regular rate Rhythm: regular rhythm Heart sounds: S1 normal heart sound present, S2 normal heart sound present, no click, no gallops and Murmur heart sound present systolic early Skin General skin exam: no rashes or lesions noted Neuro General: patient oriented x3 and no focal motor deficits Extrem General: Yes no clubbing, cyanosis or edema Objective Labs and Meds 12/22/24 08:02 12/22/24 08:02 Progress Note: A&P Assessment and plan (1) Paroxysmal atrial fibrillation: Status: Acute Assessment and Plan: Patient was not developed atrial fibrillation rapid ventricular response. Converted to sinus rhythm with rate lowering medications. Will most likely require rate lowering medications and see below for further treatment plan. Discussed with electrophysiology about further treatment plan. They want to still consider doing SVT ablation and atrial tachycardia ablation mapping and if fails pursue bradycardia support with pacemaker. Will require oral anticoagulation therapy with Eliquis once electrophysiology study as completed. Avoidance of stimulants was discussed. Low-dose metoprolol therapy to be started today 12.5 mg b.i.d.. (2) Tachy-jeri syndrome: Status: Acute Assessment and Plan: Tachy-jeri syndrome with patient slowly declining having symptoms exertional fatigue over the last 6 months to year. Could be related to sinoatrial caleb dysfunction. Has had evidence of significant pausing after conversion as well as bradycardia at rest and inability to use rate lowering medications without significant bradycardia. I do think patient might need a bradycardia support with a pacemaker. Discussed with electrophysiology. They have evaluated the patient on transfer to [facility] for further treatment plan. (3) Chronic diastolic (congestive) heart failure: Status: Acute Assessment and Plan: History of chronic heart failure, currently on low-dose Lasix therapy. Clinically appears to be euvolemic and well compensated. Monitor for signs and symptoms of heart failure. May need more neurohormonal modulation spironolactone as outpatient. Will follow with her as outpatient. Plan for transfer to [facility] today Time Spent With Patient Time: Total time managing care of this patient today ____ minutes. Progress Note: Quality Stroke Does the patient have a stroke diagnosis?: No Procedures Date of Service Date of Service: 12/23/24
[2024-12-23] MEDS: Enoxaparin Sodium 40 MG/0.4 ML SYRINGE SUBCUT (16:03)
--- NOTE | 2024-12-23 18:02 | P.PNIM_ITS ---
Subjective Subjective Date of Service: 12/24/24 Interval History: afib rvr episode Review of Systems seems fine Physical Exam 2 Vital Signs: Vital Signs: Last Vital Signs Temp 96.8 F 12/23/24 15:24 Pulse 61 12/23/24 15:24 Resp 16 12/23/24 15:24 BP 136/63 12/23/24 15:24 Pulse Ox 96 12/23/24 15:24 O2 Del Method Room Air 12/23/24 15:24 BMI result Body Mass Index 36.9 Appearance: Alert.? Oriented X3.? not in distress.? Eyes: Pupils equal, round and reactive to light.? Sclera nonicteric.? ENT: Pharynx normal.? Moist mucous membranes. cvs: rrr, [id number] , no murmur res: clear to auscultation ,no rhonchii or wheezing abd: no rebound or guarding ,nt, bs present. ext pulses present , no cyanosis ,Gait well balanced well coordinated. neuro: axo3 , nonfocal. Objective Data Active Medications Acetaminophen (Acetaminophen 325 Mg Tablet) 650 mg PO Q6H PRN PRN Reason: Pain, Mild 1-3,fever,headache Atorvastatin Calcium (Atorvastatin Calcium 20 Mg Tablet) 20 mg PO BEDTIME [facility] Last Admin: 12/22/24 21:04 Dose: 20 mg Documented By: DERIAN Atropine Sulfate (Atropine Sulfate 1 Mg/10 Ml Syringe) 1 mg IVPUSH ONCE PRN PRN Reason: Bradycardia Calcium Carbonate (Calcium Carbonate 750 Mg Tab.Chew) 750 mg PO Q4H PRN PRN Reason: Heartburn Ceftriaxone Sodium (Ceftriaxone Sodium 1 Gm Vial) 1 gm IVPUSH Q24H [facility] Last Admin: 12/23/24 09:19 Dose: 1 gm Documented By: PARAS Enoxaparin Sodium (Enoxaparin Sodium 40 Mg/0.4 Ml Syringe) 40 mg SUBCUT Q24H [facility] Last Admin: 12/23/24 16:03 Dose: 40 mg Documented By: PARAS Fluoxetine HCl (Fluoxetine Hcl 20 Mg Capsule) 20 mg PO BEDTIME [facility] Last Admin: 12/22/24 21:05 Dose: 20 mg Documented By: DERIAN Furosemide (Furosemide 20 Mg Tablet) 10 mg PO DAILY [facility]; Protocol Last Admin: 12/23/24 09:18 Dose: 10 mg Documented By: PARAS Gabapentin (Gabapentin 300 Mg Capsule) 600 mg PO BEDTIME [facility] Last Admin: 12/22/24 21:05 Dose: 600 mg Documented By: DERIAN Levothyroxine Sodium (Levothyroxine Sodium 100 Mcg Tablet) 100 mcg PO MOTUWETHFRSA@0600 [facility] Last Admin: 12/23/24 06:30 Dose: 100 mcg Documented By: SALRAPHAEL Levothyroxine Sodium (Levothyroxine Sodium 200 Mcg Tablet) 200 mcg PO TURNER@0600 [facility] Last Admin: 12/22/24 06:04 Dose: 200 mcg Documented By: ОЛЕГ Magnesium Hydroxide (Milk Of Magnesia 30 Ml Oral.Susp) 30 ml PO DAILY PRN PRN Reason: Constipation Melatonin (Melatonin 3 Mg Tablet) 6 mg PO BEDTIME PRN PRN Reason: Insomnia Metoprolol Tartrate (Metoprolol Tartrate 12.5 Mg Halftab) 12.5 mg PO BID [facility]; Protocol Omeprazole (Omeprazole 20 Mg Capsule.) 20 mg PO BID@0630,1630 [facility] Last Admin: 12/23/24 16:03 Dose: 20 mg Documented By: PARAS Sodium Chloride (0.9 % Sodium Chloride Flush 3 Ml Syringe) 3 ml IVFLUSH QSHIFT [facility] Last Admin: 12/23/24 16:05 Dose: 3 ml Documented By: PARAS Labs 12/22/24 08:02 12/22/24 08:02 Microbiology Microbiology Results: Microbiology 12/21/24 09:26 Blood Culture - Preliminary Blood - Venous No growth after 48 hours. 12/21/24 09:26 Blood Culture - Preliminary Blood - Venous No growth after 48 hours. Assessment and Plan (1) Tachy-jeri syndrome: Status: Acute Plan 74-year-old female with a medical history significant for diastolic CHF, HTN, nonrheumatic aortic stenosis, HLD, hypothyroid, GERD, and gout-came with feeling unwell and palpatations. SVT :noticed to be in supraventricular tachycardia. Valsalva maneuver was done in the emergency department and she converted to sinus rhythm with a long conversion pause of 5.5. question of bradycardia in setting of bb vs tachy jeri last night received cardizen andbb for afib tsh levels normal cta negative for pulm emboli moniter on tele d/ w cardio -added bb due to overnight afib with rvr : metoprolol 12.5 mg bid cardiology -will decide further either svt ablation vs ppm hypotension and acute lactic acisosis sec to svt. not septic at present. improved spontaneously with improvement of hr . possible [id number]. ? UTI :UA has some pyuria and trace bacteruria given ceftriaxone ib ed urine culture and blood cultures pending cta shows ch lung changes -patient does not have respiratory symptoms ,rsv/flu/covid neg hlp: continue statin Hypothyroidism; continue levothyroxine Quality Stroke Does the patient have a stroke diagnosis?: No VTE Prior VTE?: No VTE Risk Level:: Medical - moderate - high VTE Device Contraindication: N/A - Device Ordered VTE Drug Contraindication: N/A - Med Ordered
[2024-12-23] MEDS: FLUoxetine HCl 20 MG CAPSULE PO (20:55)
[2024-12-23] MEDS: Gabapentin 300 MG CAPSULE 600 MG PO (20:55)
[2024-12-23] MEDS: Metoprolol Tartrate 12.5 MG HALFTAB PO (20:55)
[2024-12-23] MEDS: Atorvastatin Calcium 20 MG TABLET PO (20:56)
[2024-12-24 03:57] VITALS: BP 142/72; PULSE 70; RESP 18; TEMP 36.7; O2SAT 96
[2024-12-24] MEDS: Levothyroxine Sodium 100 MCG TABLET PO (06:16)
[2024-12-24] MEDS: Omeprazole 20 MG CAPSULE.DR PO (06:16)
[2024-12-24 08:00] VITALS: BP 162/78; PULSE 67; RESP 16; TEMP 36.5; O2SAT 95
[2024-12-24] MEDS: Metoprolol Tartrate 12.5 MG HALFTAB PO (09:27)
[2024-12-24] MEDS: Furosemide 20 MG TABLET 10 MG PO (09:27)
[2024-12-24] MEDS: Acetaminophen 325 MG TABLET 650 MG PO (09:30)
[2024-12-24] MEDS: 0.9 % Sodium Chloride Flush 3 ML SYRINGE IVFLUSH (09:33)
[2024-12-24] MEDS: cefTRIAXone sodium 1 GM VIAL IVPUSH (09:35)
--- NOTE | 2024-12-24 10:15 | MHC.CM.PN ---
Per [facility]OUNDS discussion, plan remains for Patient to transfer to [facility] (pending bed availability) for a pacemaker.
--- NOTE | 2024-12-24 10:53 | P.PNCA_ITS ---
Subjective Subjective Date of Service: 12/24/24 Principal diagnosis: Palpitations, bradycardia. Interval history: No significant overnight tachyarrhythmia. Patient feels well but says has mild headache. Blood pressure is elevated. She says she usually takes amlodipine and benazepril at home. Review of Systems Constitutional: Reports headache(s) Eyes: Reports no additional eye complaints Reports headache(s) Cardiovascular: Reports no additional cardiovascular complaints Respiratory: Reports no additional respiratory complaints Musculoskeletal: Reports no additional musculoskeletal complaints Skin/Breast: Reports system reviewed and no additional complaints, except as docu Reports system reviewed and no additional complaints, except as documented and Reports headache(s) Endocrine: Reports no additional endocrine complaints Physical Exam Vital Signs: Last Vital Signs Temp 97.7 F 12/24/24 08:00 Pulse 67 12/24/24 08:00 Resp 16 12/24/24 08:00 BP 162/78 H 12/24/24 08:00 Pulse Ox 95 12/24/24 08:00 O2 Del Method Room Air 12/24/24 08:00 BMI result Body Mass Index 36.9 Const General: cooperative, comfortable, alert and awake Nutritional Appearance: obese Orientation/consciousness: patient oriented x3 Neck Neck: Yes trachea midline, Yes supple and Yes no JVD Resp Effort & Inspection: normal respiratory effort Auscultation: clear to auscultation bilaterally Cardio Rate: regular rate Rhythm: regular rhythm Heart sounds: S1 normal heart sound present, S2 normal heart sound present, no click, no gallops and Murmur heart sound present systolic early Skin General skin exam: no rashes or lesions noted Neuro General: patient oriented x3 and no focal motor deficits Extrem General: Yes no clubbing, cyanosis or edema Objective Labs and Meds 12/22/24 08:02 12/22/24 08:02 Progress Note: A&P Assessment and plan (1) Tachy-jeri syndrome: Status: Acute Assessment and Plan: Patient was tachy-jeri syndrome. Being transferred to [facility] to consider for EP study with possible ablation and if negative inducible arrhythmias, will need pacemaker placement to be able to treat her tachyarrhythmias due to a baseline bradycardia symptoms of chronotropic incompetence. Discussed with electrophysiology service and patient and they both understand. For now continue low-dose metoprolol therapy. (2) Paroxysmal atrial fibrillation: Status: Acute Assessment and Plan: Paroxysmal atrial fibrillation, new onset. Currently not having any recurrent symptoms. Continue metoprolol therapy. 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 (3) HTN (hypertension): Status: Acute Assessment and Plan: Hypertension with elevated blood pressure after holding her home medications. Can resume amlodipine at 5 mg and follow up blood pressure closely. Treat headaches as need be. Will sign of the case. Thank you for allowing me to partake in her care Time Spent With Patient Time: Total time managing care of this patient today ____ minutes. Progress Note: Quality Stroke Does the patient have a stroke diagnosis?: No Procedures Date of Service Date of Service: 12/24/24
--- NOTE | 2024-12-24 11:17 | P.PNIM_ITS ---
Subjective Subjective Date of Service: 12/24/24 Interval History: tachy jeri Review of Systems overnight few min tachycardia patient denies new c/o. has headchaes. Physical Exam 2 Vital Signs: Vital Signs: Last Vital Signs Temp 97.7 F 12/24/24 08:00 Pulse 67 12/24/24 08:00 Resp 16 12/24/24 08:00 BP 162/78 H 12/24/24 08:00 Pulse Ox 95 12/24/24 08:00 O2 Del Method Room Air 12/24/24 08:00 BMI result Body Mass Index 36.9 Appearance: Alert.? Oriented X3.? not in distress.? cvs: rrr, [id number] , no murmur res: clear to auscultation ,no rhonchii or wheezing abd: no rebound or guarding ,nt, bs present. ext pulses present , no cyanosis . neuro: axo3 , nonfocal. Objective Data Active Medications Acetaminophen (Acetaminophen 325 Mg Tablet) 650 mg PO Q6H PRN PRN Reason: Pain, Mild 1-3,fever,headache Last Admin: 12/24/24 09:30 Dose: 650 mg Documented By: PARAS Atorvastatin Calcium (Atorvastatin Calcium 20 Mg Tablet) 20 mg PO BEDTIME [facility] Last Admin: 12/23/24 20:56 Dose: 20 mg Documented By: TONJA Atropine Sulfate (Atropine Sulfate 1 Mg/10 Ml Syringe) 1 mg IVPUSH ONCE PRN PRN Reason: Bradycardia Calcium Carbonate (Calcium Carbonate 750 Mg Tab.Chew) 750 mg PO Q4H PRN PRN Reason: Heartburn Ceftriaxone Sodium (Ceftriaxone Sodium 1 Gm Vial) 1 gm IVPUSH Q24H [facility] Last Admin: 12/24/24 09:35 Dose: 1 gm Documented By: PARAS Enoxaparin Sodium (Enoxaparin Sodium 40 Mg/0.4 Ml Syringe) 40 mg SUBCUT Q24H [facility] Last Admin: 12/23/24 16:03 Dose: 40 mg Documented By: PARAS Fluoxetine HCl (Fluoxetine Hcl 20 Mg Capsule) 20 mg PO BEDTIME [facility] Last Admin: 12/23/24 20:55 Dose: 20 mg Documented By: TONJA Furosemide (Furosemide 20 Mg Tablet) 10 mg PO DAILY [facility]; Protocol Last Admin: 12/24/24 09:27 Dose: 10 mg Documented By: PARAS Comments: Gabapentin (Gabapentin 300 Mg Capsule) 600 mg PO BEDTIME [facility] Last Admin: 12/23/24 20:55 Dose: 600 mg Documented By: TONJA Levothyroxine Sodium (Levothyroxine Sodium 100 Mcg Tablet) 100 mcg PO MOTUWETHFRSA@0600 [facility] Last Admin: 12/24/24 06:16 Dose: 100 mcg Documented By: TARYN Levothyroxine Sodium (Levothyroxine Sodium 200 Mcg Tablet) 200 mcg PO TURNER@0600 [facility] Last Admin: 12/22/24 06:04 Dose: 200 mcg Documented By: ОЛЕГ Magnesium Hydroxide (Milk Of Magnesia 30 Ml Oral.Susp) 30 ml PO DAILY PRN PRN Reason: Constipation Melatonin (Melatonin 3 Mg Tablet) 6 mg PO BEDTIME PRN PRN Reason: Insomnia Metoprolol Tartrate (Metoprolol Tartrate 12.5 Mg Halftab) 12.5 mg PO BID [facility]; Protocol Last Admin: 12/24/24 09:27 Dose: 12.5 mg Documented By: PARAS Omeprazole (Omeprazole 20 Mg Capsule.Dr) 20 mg PO BID@0630,1630 [facility] Last Admin: 12/24/24 06:16 Dose: 20 mg Documented By: TARYN Sodium Chloride (0.9 % Sodium Chloride Flush 3 Ml Syringe) 3 ml IVFLUSH QSHIFT [facility] Last Admin: 12/24/24 09:33 Dose: 3 ml Documented By: PARAS Labs 12/22/24 08:02 12/22/24 08:02 Microbiology Microbiology Results: Microbiology 12/21/24 09:26 Blood Culture - Preliminary Blood - Venous No growth after 48 hours. 12/21/24 09:26 Blood Culture - Preliminary Blood - Venous No growth after 48 hours. Assessment and Plan (1) Tachy-jeri syndrome: Status: Acute Plan 74-year-old female with a medical history significant for diastolic CHF, HTN, nonrheumatic aortic stenosis, HLD, hypothyroid, GERD, and gout-came with feeling unwell and palpatations. SVT :noticed to be in supraventricular tachycardia. Valsalva maneuver was done in the emergency department and she converted to sinus rhythm with a long conversion pause of 5.5. question of bradycardia in setting of bb vs tachy jeri last night received cardizen andbb for afib tsh levels normal cta negative for pulm emboli moniter on tele d/ w cardio -added bb due to overnight afib with rvr : metoprolol 12.5 mg bid,may need to start AC in [facility] after procedure. cardiology -will decide further either svt ablation vs ppm hypotension and acute lactic acisosis sec to svt. not septic at present. improved spontaneously with improvement of hr . possible [id number]. ? UTI :UA has some pyuria and trace bacteruria given ceftriaxone ib ed urine culture and blood cultures pending cta shows ch lung changes -patient does not have respiratory symptoms ,rsv/flu/covid neg hlp: continue statin Hypothyroidism; continue levothyroxine Quality Stroke Does the patient have a stroke diagnosis?: No VTE Prior VTE?: No VTE Risk Level:: Medical - moderate - high VTE Device Contraindication: N/A - Device Ordered VTE Drug Contraindication: N/A - Med Ordered
== END 2024-12-24 12:30 | disposition short-term general hospital (02) | DRG 309 ==
LOC: HO.ED 13:21 → HO.EDOVER 13:29 → HO.IMC 13:50
PROVIDERS: Physician Assistant; Admitting Provider Internal Medicine; Emergency Provider Emergency Medicine; PCP Internal Medicine; Visit Provider Internal Medicine
DX: I49.5 Sick sinus syndrome (principal); E87.21 Acute metabolic acidosis; I13.0 Hypertensive heart and chronic kidney disease with heart failure and stage 1 through stage 4 chronic kidney disease, or unspecified chronic kidney disease; I50.32 Chronic diastolic (congestive) heart failure; N39.0 Urinary tract infection, site not specified; E78.5 Hyperlipidemia, unspecified; N18.31 Chronic kidney disease, stage 3a; I48.0 Paroxysmal atrial fibrillation; I35.0 Nonrheumatic aortic (valve) stenosis; Z20.822 Contact with and (suspected) exposure to COVID-19; Z79.890 Hormone replacement therapy; Z79.899 Other long term (current) drug therapy
CPT/HCPCS: 0241U; 36415; 70450; 71275; 74177; 80048; 80053; 81001; 83605; 83735; 83880; 84443; 84484; 85025; 85027; 85379; 85610; 87040; 87086; 93005; 93306; 99285; J0696; J1650

== ENCOUNTER → 2024-12-21 09:22 | Outpatient (BNV) | payer MEDICARE, SELFPAY | PROVIDERS: Emergency Provider Emergency Medicine; PCP Internal Medicine; Visit Provider Radiology Diagnostic Radiology | DX: R10.84 Generalized abdominal pain (principal); R06.02 Shortness of breath; R51.9 Headache, unspecified | CPT/HCPCS: 70450; 71275; 74177 ==

== ENCOUNTER → 2024-12-21 09:58 | Outpatient (BNV) | payer MEDICARE, SELFPAY | PROVIDERS: Emergency Provider Emergency Medicine; PCP Internal Medicine; Visit Provider Internal Medicine Cardiovascular Disease | DX: I47.10 Supraventricular tachycardia, unspecified (principal); I35.0 Nonrheumatic aortic (valve) stenosis; R00.1 Bradycardia, unspecified | CPT/HCPCS: 99223 ==

== ENCOUNTER 2024-12-21 13:22 | Outpatient (BNV) | payer MEDICARE, SELFPAY | END 2024-12-22 22:16 | PROVIDERS: Admitting Provider Internal Medicine; Emergency Provider Emergency Medicine; PCP Internal Medicine; Visit Provider Internal Medicine Cardiovascular Disease | DX: R07.9 Chest pain, unspecified (principal); R94.31 Abnormal electrocardiogram [ECG] [EKG] | CPT/HCPCS: 93010 ==

== ENCOUNTER 2024-12-21 13:22 | Outpatient (BNV) | payer MEDICARE, SELFPAY | END 2024-12-23 07:08 | PROVIDERS: Admitting Provider Internal Medicine; Emergency Provider Emergency Medicine; PCP Internal Medicine; Visit Provider Internal Medicine Cardiovascular Disease | DX: R00.1 Bradycardia, unspecified (principal); R94.31 Abnormal electrocardiogram [ECG] [EKG]; R00.0 Tachycardia, unspecified | CPT/HCPCS: 93010 ==

== ENCOUNTER → 2024-12-21 13:22 | Outpatient (BNV) | payer MEDICARE, SELFPAY | PROVIDERS: Admitting Provider Internal Medicine; Emergency Provider Emergency Medicine; PCP Internal Medicine; Visit Provider Internal Medicine | DX: R00.1 Bradycardia, unspecified (principal); I47.10 Supraventricular tachycardia, unspecified; I50.32 Chronic diastolic (congestive) heart failure | CPT/HCPCS: 99222; 99239 ==

== ENCOUNTER 2025-01-09 08:03 | Outpatient (AMB) | payer MEDICARE, SELFPAY ==
--- OUTSIDE RECORDS SUMMARY | 2025-01-09 08:11 | XMS_ITS | Clinical Summary ---
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 And 2 tabs on monday05/03/2024 Active allopurinoL (ZYLOPRIM) 100 mg tablet Take 1 Tablet by mouth daily. 05/30/2024 Active atenoloL (TENORMIN) 50 mg tablet Take 1 tablet (50 mg total) by mouth 1 (one) time each day. 05/30/2024 Active gabapentin (NEURONTIN) 300 mg capsule Take 1 Capsule by mouth 3 times daily. 05/31/2024 Active furosemide (LASIX) 20 mg tablet Take 0.5 Tablets by mouth daily. 08/29/2023 Active fluticasone propionate (FLONASE) 50 mcg/actuation nasal spray SPRAY EACH NOSTRIL DAILY 11/29/2022 Active loratadine (CLARITIN) 10 mg tablet Take 1 Tablet by mouth daily for 360 days. 05/04/2022 Active amLODIPine (NORVASC) 10 mg tablet TAKE 1 TABLET BY MOUTH AT BEDTIME. 90 tablet 10/14/2024 Active benazepriL (LOTENSIN) 40 mg tablet Take 1 tablet (40 mg total) by mouth 1 (one) time each day. 90 tablet 1 12/03/2024 Active atorvastatin (LIPITOR) 20 mg tablet TAKE ONE (1) TABLET BY MOUTH EVERY NIGHT AT BEDTIME 90 tablet 1 10/19/2024 Active FLUoxetine (PROzac) 20 mg capsule TAKE 1 CAPSULE BY MOUTH DAILY. 90 capsule 1 10/19/2024 Active omeprazole (PriLOSEC) [address] capsule TAKE 1 CAPSULE (20 MG TOTAL) BY MOUTH 2 (TWO) TIMES A DAY. DO NOT CRUSH OR CHEW. 90 capsule 1 10/19/2024 Active Vitamin D2 1,250 mcg (50,000 unit) capsule TAKE 1 CAPSULE BY MOUTH ONCE A WEEK. 12 capsule 1 10/19/2024 Active atenoloL (TENORMIN) 25 mg tablet Take by mouth 1 (one) time each day. Active Active Problems Problem Noted Date Diagnosed Date Severe obesity (BMI 35.0-39.9) with comorbidity 05/30/2024 Vitamin D deficiency 04/20/2022 Congestive heart failure due to high blood press ure 02/21/2020 Overview (08/15/2024): Follows with [facility]. Diastolic congestive heart failure Aortic valve stenosis 11/26/2019 Neuropathy 05/23/2019 Adrenal mass, left 12/22/2017 Overview (08/15/2024): Stable 2 cm adrenal mass on CT of 06/15/2017 CKD (chronic kidney disease) stage 3, GFR 30-59 ml/min 07/03/2014 Severe cervical dysplasia, histologically confir med 06/28/2013 Overview (08/15/2024): Positive 2012, 2013 and 2015, colposcopy = JOZEF 2. Cone biopsy JOZEF 3. Radial margin positive. Additional endocervical specimen shows no dysplasia Hyperlipemia 09/25/2012 Hypertension 09/25/2012 Hypothyroid 01/02/2012 Encounters Date Type Department Care Team Description 11/14/2024 2:09 PM EST - 11/14/2024 11:59 PM EST Hospital Encounter [address] [phone] Multifocal pneumonia Discharge Disposition: Home or Self Care 11/14/2024 1:30 PM EST Office Visit Adult Medicine [address] [phone] Ilia Cates MD Multifocal pneumonia (Primary Dx); Lesion of adrenal gland (CMS/HCC); Renal lesion; Other specified hypotension; Bradycardia; Primary hypertension 10/18/2024 2:40 PM EST - 10/18/2024 11:59 PM EST Hospital Encounter [facility] Density - [place] [address] [place] [phone] Encounter for screening for osteoporosis Discharge Disposition: Home or Self Care from Last 3 Months Immunizations Name Administration Dates Next Due Influenza trivalent, 0.5mL ( Fluzone High-dose) 65yo and older 08/20/2014,08/29/2013,08/13/2012 Pneumococcal conjugate 13 va lent (Prevnar 13, PCV13) 2mo and older 04/18/2022 Pneumococcal polysaccharide 23 valent (Pneumovax 23) 2yo and older 06/23/2014 Td Tetanus diptheria (Tdvax) 7yo and older 08/29,05/04/2001 Tdap Tetanus diptheria acell ular pertussis (Boostrix; Adacel) 7yo and older 10/11/2012 Zoster Live 06/06/2017 Surgical History Surgery Date Site/Laterality Comments OTHER SURGICAL HISTORY PROCEDURE: OK PUNCTURE ASPIRATION CYST BREAST EACH ADDL CYST TUBAL LIGATION PROCEDURE: HISTORICAL TUBAL LIGATION COLONOSCOPY 01/2007 PROCEDURE: OK COLONOSCOPY STOMA DX INCLUDING COLLJ SPEC SPX OTHER SURGICAL HISTORY 11/19/13 PROCEDURE: COLON CA SCRN NOT HI RSK IND; COMMENT: normal; repeat in ten yrs CERVICAL BIOPSY W/ LOOP ELECTRODE EXCISION 09/08/16 PROCEDURE: HISTORICAL CONE BIOPSY; COMMENT: for JOZEF 2 BREAST SURGERY Left PROCEDURE: OK UNLISTED PROCEDURE BREAST; COMMENT: removed lump BREAST BIOPSY PROCEDURE: BX BREAST; PERC NEEDLE CORE W/IMAG GUID; COMMENT: lt.--b9 Medical History Medical History Date Comments Hypertension DX:Hypertension Arthritis DX:Arthritis History of gout 01/22/2013 DX:History of go ut; COMMENT: Episodic attacks since 2009. Hyperlipemia 09/25/2012 DX:Hyperlipemia Cervical high risk HPV (rachana n papillomavirus) test positive 06/28/2013 DX:Cervical high risk HP V (human papillomavirus) test positive Hypothyroid 01/02/2012 DX:Hypothyroid Increased risk of breast cancer 05/04/2015 DX:Increased risk of breast cancer Systolic murmur 01/22/2013 DX:Systolic murm ur; COMMENT: Lifelong and the patient tells me she had normal ECHO last year. Previous ECHO done here in 2003 was normal. Family History Medical History Relation Name Comments Other: caBreast Aunt lung metasta sis, started as breast Lung cancer Brother Hypertension Father dementia Diabetes Mother hypertension, d ementia, guillan barre Stroke Mother Breast cancer Sister 1 dx'd 50s Hypertension Sister 1 dx'd 50s x3 Breast cancer Sister 2 Other: CA other Uncle stomach Colon cancer Neg Hx Ovarian cancer Neg Hx Uterine cancer Neg Hx Relation Name Status Comments Aunt Brother Alive 7 brother Daughter Alive Father Alive dementia, HTN Mother Alive dementia, DM, H [place], Heart problems Sister 1 dx'd 50s Sister 2 Alive breast CA Sister 3 breast CA Sister 4 Alive depression Son Alive substance abuse Uncle Social History Tobacco Use Types Packs/Day Years Used Date Smoking Tobacco: Former Cigarettes Q uit: 02/27/1999 Smokeless Tobacco: Former Tobacco Cessation:Counseling Given: Not Answered Alcohol Use Standard Drinks/Week Comments No 0 (1 standard drink = 0.6 oz pur e alcohol) Comments No Sex and Gender Information Value Date Recorded Sex Assigned at Not on file Legal Sex Female 12:40 PM EST Gender Identity Not on file Sexual Orientation Not on file Obstetrics History Last Filed Vital Signs Vital Sign Reading Time Taken Comments Blood Pressure 124/58 11/14/2024 1:29 PM EST Pulse 55 11/14/2024 1:29 PM EST Temperature 36.3 ??C (97.3 ??F) 11/14/2024 1:29 PM ES T Respiratory Rate 12 11/14/2024 1:29 PM EST Oxygen Saturation 96% 09/25/2024 10:19 AM EST Inhaled Oxygen Concentration - - Weight 87.1 kg (192 lb) 11/14/2024 1:29 PM EST Height 165.1 cm (5' 5 ) 11/14/2024 1:29 PM EST Body Mass Index 31.95 11/14/2024 1:29 PM EST Plan of Treatment Upcoming Encounters Date Type Department Care Team (Late st Contact Info) Description 03/18/2025 1:00 PM EDT Office Visit Adult Medicine [address] [phone] Fito Aguilar PA [address] [place] [address] 06/05/2025 2:10 PM EDT Appointment Radiology Department - [address] [place] [phone] Health Maintenance Due Date Last Done Comments Zoster Vaccines (2 of 3) 08/01/2017 06/06/2017 Colorectal Cancer Screening: Colonoscopy 10/22/2022 Depression Screening 10/22/2022 Falls Risk Assessment 10/22/2022 Medicare Annual Wellness Visit 10/22/2022 Social Influencers of Health Screening 10/22/2022 RSV Immunization Patients 60+ Years Old (1 - 1-dose 75+ series) 2024 COVID-19 Vaccine ( season) 2024 08/23/2021, 01/09/2021, 12/19/2020 Influenza Vaccine (#1) 2024 4, 08/29/2013, 08/13/2012 Hypertension/CHF/CAD Annual BMP Blood Test 06/10/2025 06/10/2024, 06/10/2024 Cholesterol Screening (Lipid Panel) 06/10/2029 06/10/2024, 06/10/2024 DTaP,Tdap,and Td Vaccines (4 - Td or Tdap) 08/29/2033 08/29/2023, 10/11/2012, 05/04/2001 Osteoporosis Screening (Bone Density Screening) 10/18/2034 10/18/2024, 11/01/2017 Hepatitis C Screening Completed 01/11/2014 Pneumococcal Vaccine: 50+ Years Completed 04/18/2022, 06/23/2014 Breast Cancer Screening Discontinued 06/03/20, 06/03/2024, 10/25/2021, Additional history exists HIB Vaccines Aged Out No longer eligi ble based on patient's age to complete this topic HPV Vaccines Aged Out No longer eligi ble based on patient's age to complete this topic Hepatitis A Vaccines Aged Out No long er eligible based on patient's age to complete this topic Hepatitis B Vaccines Aged Out No long er eligible based on patient's age to complete this topic IPV Vaccines Aged Out No longer eligi ble based on patient's age to complete this topic MMR Vaccines Aged Out No longer eligi ble based on patient's age to complete this topic Meningococcal ACWY Vaccine Aged Out N o longer eligible based on patient's age to complete this topic Meningococcal B Vacine Aged Out No lo nger eligible based on patient's age to complete this topic RSV Immunization Patients Under 20 months Aged Out No longer eligible based on patient's age to complete this topic Varicella Vaccines Aged Out No longer eligible based on patient's age to complete this topic Procedures Procedure Name Priority Date/Time Associated Diagnosis Comments EXTERNAL CT REPORT 12/21/2024 XR CHEST 2 VIEWS Routine 11/14/2024 2:20 PM EST Multifocal pneumonia BD BONE DENSITY DXA AXIAL SKELETON Routine 10/18/2024 3:14 PM EST Encounter for screening for osteoporosis ANNUAL BMP BLOOD TEST Routine 06/10/2024 LIPID PANEL Routine 06/10/2024 SCREENING MAMMOGRAPHY BI 2-VIEW BREAST INC CAD Routine 06/03/2024 2:14 PM EDT Encounter for screening mammogram for malignant neoplasm of breast HEPATITIS C SCREENING Routine 01/11/2014 from Last 3 Months or Most Recently Relevant to Health Maintenance Results * External CT Report (12/21/2024) Anatomical Region Laterality Modality Computed Tomogra phy us Provider Onbase MD JULES CT PROCEDURES Final Resul t * XR Chest 2 Views (11/14/2024 2:20 PM EST) Anatomical Region Laterality Modality Body Radiographic Niurka ging 11/19/2024 5:10 PM EST Impressions 11/19/2024 5:12 PM EST No acute pulmonary pathology. -------- FINAL REPORT -------- Dictated By: Jenny Mayer Dictated Date: 11/19/2024 17:10 ET Assigned Physician: Jenny Mayer Reviewed and Electronically Signed By: Jenny Mayer Signed Date: 11/19/2024 17:12 ET Workstation ID: [id number] Transcribed By: Self Edit Transcribed Date: 11/19/2024 17:10 ET Narrative 11/19/2024 5:12 PM EST CHEST, TWO VIEWS HISTORY: ?? Follow-up multifocal pneumonia.. TECHNIQUE: Frontal and lateral views of the chest. PRIOR: Chest x-ray 07/03/2020. ??CT angiography chest 09/25/2024. FINDINGS: The lungs are clear. No pleural effusion is seen. No pneumothorax is seen. The cardiac diameter is within normal limits. No acute or aggressive appearing bony abnormalities are seen. ??There is degenerative change of the spine. Procedure Note Jenny Mayer MD - 11/19/2024 CHEST, TWO VIEWS HISTORY: Follow-up multifocal pneumonia.. TECHNIQUE: Frontal and lateral views of the chest. PRIOR: Chest x-ray 07/03/2020. CT angiography chest 09/25/2024. FINDINGS: The lungs are clear. No pleural effusion is seen. No pneumothorax is seen. The cardiac diameter is within normal limits. No acute or aggressive appearing bony abnormalities are seen. There isdegenerative change of the spine. IMPRESSION: No acute pulmonary pathology. -------- FINAL REPORT -------- Dictated By: Jenny Mayer Dictated Date: 11/19/2024 17:10 ET Assigned Physician: Jenny Mayer Reviewed and Electronically Signed By: Jenny Mayer Signed Date: 11/19/2024 17:12 ET Workstation ID: [id number] Transcribed By: Self Edit Transcribed Date: 11/19/2024 17:10 ET us Ilia Cates MD IMG XR PROCEDURES Final Result * BD Bone Density DXA Axial Skeleton (10/18/2024 3:14 PM EST) Anatomical Region Laterality Modality Wrist, Hip, L-spine Bone Densito metry 10/18/2024 4:12 PM EST Impressions 10/18/2024 4:14 PM EST Osteopenia by WHO criteria. This patient has a 9.5% risk of major osteoporotic fracture and a 1.7% risk of hip fracture over the next 10 years. (World Health Organization Fracture Risk Assessment) The [facility] Department of Internal Medicine recommends using National Osteoporosis Foundation (NOF) guidelines in treatment decisions related to osteoporosis. NOF guidelines suggest considering treatment for postmenopausal women and men aged 50 or older presenting with the following: History of hip or vertebral fracture. T-score = -2.5 (DXA) at the femoral neck, total hip, or spine, after appropriate evaluation to exclude secondary causes. Low bone mass (T-score between -1.0 and -2.5 at the femoral neck or spine) AND a 10-year probability of a hip fracture = 3% OR a 10-year probability of a major osteoporosis-related fracture = 20% based on the [place]-adapted WHO algorithm Please note that all treatment decisions require clinical judgment and consideration of individual patient factors, including patient preferences, co-morbidities, previous drug use, risk factors not captured in the FRAX model (e.g., frailty, falls, vitamin D deficiency, increased bone turnover, interval significant decline in bone density) and possible under- or over-estimation of fracture risk by FRAX. Optional alternative screening schedule based on fahad Chery., [facility] December 01, 2011 for patients with osteopenia (based on hip BMD T-score) is as follows: * ??advanced osteopenia (T scores -2.00 to -2.49), BMD testing every year * ??moderate osteopenia (T scores -1.50 to -1.99), BMD testing every 5 years mild osteopenia or normal BMD (T scores -1.50 and higher), BMD testing every 15 years -------- FINAL REPORT -------- Dictated By: Alecia Dallas Dictated Date: 10/18/2024 16:12 ET Assigned Physician: Alecia Dallas Reviewed and Electronically Signed By: Alecia Dallas Signed Date: 10/18/2024 16:14 ET Workstation ID: [id number] Transcribed By: Self Edit Transcribed Date: 10/18/2024 16:12 ET Narrative 10/18/2024 4:14 PM EST BONE DENSITY SCAN (DEXA): FINDINGS: Lumbar Spine T-score is -0.9. ?? (SD relative to 20-29 y/o adult) Z-score is 1.5. ??(SD relative to age matched peers) This is considered normal by WHO criteria. Left Hip T-score is -1.7. Z-score is 0.3. This is considered osteopenia by WHO criteria. Comparison exam(s): 11/01/2017. ??7.8% increase in left hip bone mineral density which is statistically significant at the 95% confidence level. ??No statistically significant change in lumbar spine bone mineral density. Procedure Note Alecia Dallas MD - 10/18/2024 BONE DENSITY SCAN (DEXA): FINDINGS: Lumbar Spine T-score is -0.9. (SD relative to 20-29 y/o adult) Z-score is 1.5. (SD relative to age matched peers) This is considered normal by WHO criteria. Left Hip T-score is -1.7. Z-score is 0.3. This is considered osteopenia by WHO criteria. Comparison exam(s): 11/01/2017. 7.8% increase in left hip bone mineraldensity which is statistically significant at the 95% confidence level.No statistically significant change in lumbar spine bone mineraldensity. IMPRESSION: Osteopenia by WHO criteria. This patient has a 9.5% risk of majorosteoporotic fracture and a 1.7% risk of hip fracture over the next 10years. (World Health Organization Fracture Risk Assessment) The [facility] Department of Internal Medicine recommendsusing National Osteoporosis Foundation (NOF) guidelines in treatmentdecisions related to osteoporosis. NOF guidelines suggest consideringtreatment for postmenopausal women and men aged 50 or older presentingwith the following: History of hip or vertebral fracture. T-score = -2.5 (DXA) at the femoral neck, total hip, or spine, afterappropriate evaluation to exclude secondary causes. Low bone mass (T-score between -1.0 and -2.5 at the femoral neck or spine)AND a 10-year probability of a hip fracture = 3% OR a 10-year probabilityof a major osteoporosis-related fracture = 20% based on the [place]-adapted WHOalgorithm Please note that all treatment decisions require clinical judgment andconsideration of individual patient factors, including patientpreferences, co-morbidities, previous drug use, risk factors not capturedin the FRAX model (e.g., frailty, falls, vitamin D deficiency, increasedbone turnover, interval significant decline in bone density) and possibleunder- or over-estimation of fracture risk by FRAX. Optional alternative screening schedule based on f[facility]ad Chery., [facility] for patients with osteopenia (based on hip BMD T-score)is as follows: * advanced osteopenia (T scores -2.00 to -2.49), BMD testing every year * moderate osteopenia (T scores -1.50 to -1.99), BMD testing every 5years mild osteopenia or normal BMD (T scores -1.50 and higher), BMD testingevery 15 years -------- FINAL REPORT -------- Dictated By: Alecia Dallas Dictated Date: 10/18/2024 16:12 ET Assigned Physician: Alecia Dallas Reviewed and Electronically Signed By: Alecia Dallas Signed Date: 10/18/2024 16:14 ET Workstation ID: [id number] Transcribed By: Self Edit Transcribed Date: 10/18/2024 16:12 ET Ilia Cates MD IMG DXA PROCEDURES Final Result * Annual BMP Blood Test (06/10/2024) [facility] Annual BMP Blood Test Abstracted Historical Provider HEALTH MAINTENANCE Final Result * (ABNORMAL) Lipid panel (06/10/2024) [facility] LDL/HDL Ratio 5(A) 0 - 4 Triglycerides 245(A) 0 - 150 mg/dL Cholesterol 191 0 - 200 mg/dL HDL 42 >=40 mg/dL LDL Cholesterol 100 0 - 100 mg/dL Blood Venous blood specimen / Unknown Historical Provider LAB BLOOD ORDERABLES Carly l Result * SCREENING MAMMOGRAPHY BI 2-VIEW BREAST INC CAD (06/03/2024 2:14 PM EDT) Anatomical Region Laterality Modality Radiographic Niurka ging 05/08/2023 4:18 PM EDT Narrative 06/04/2024 12:23 PM EDT This is a summary report. The complete report is available in the patient's medical record. If you cannot access the medical record, please contact the sending organization for a detailed fax or copy. Full field digital screening 2D C views and 3D tomosynthesis mammography, reviewed with CAD and compared to previous. The breast tissue is heterogeneously dense, limiting sensitivity. No suspicious mass, architectural distortion or suspicious calcifications are identified. IMPRESSION: : Dense breast tissue, limiting the sensitivity of mammography. No mammographic evidence of malignancy. ??Considering to the patient is also a risk for malignancy, screening yearly MRI examination is recommended. BIRADS 1-Negative; N. 5 year breast cancer risk assessment 8.9 % Lifetime breast cancer risk assessment 18.6 % Breast cancer risk category High (>20%) Procedure Note Elizabeth Love MD - 08/28/2024 This is a summary report. The complete report is available in thepatient's medical record. If you cannot access the medical record, pleasecontact the sending organization for a detailed fax or copy. Full field digital screening 2D C views and 3D tomosynthesis mammography,reviewed with CAD and compared to previous. The breast tissue isheterogeneously dense, limiting sensitivity. No suspicious mass,architectural distortion or suspicious calcifications are identified. IMPRESSION: : Dense breast tissue, limiting the sensitivity of mammography. Nomammographic evidence of malignancy. Considering to the patient is also arisk for malignancy, screening yearly MRI examination is recommended. BIRADS 1-Negative; N. 5 year breast cancer risk assessment 8.9 % Lifetime breast cancer risk assessment 18.6 % Breast cancer risk category High (>20%) Ilia Cates MD IMG XR PROCEDURES Final Result * Hepatitis C Screening (01/11/2014) Hepatitis C Screening Abstracted Historical Provider HEALTH MAINTENANCE Final Result from Last 3 Months or Most Recently Relevant to Health Maintenance Insurance [employer] Care Teams Pumper Gauger Apprentice Relationship Specialty Start Date End Date Ilia Cates MD [address] [place] [address] [phone] PCP - General Internal Medicine 12/23/15
--- NOTE | 2025-01-09 08:14 | A.OFFVIS_ITS ---
Intake Visit Reasons: History of Renal Lesion/Urinary Frequency Intake Note: New Patient is present for renal lesion and urinary frequency Any Urology Meds: none Antibiotic Allergies: nka Blood Thinners: Eliquis PVR 0 Family History: Bladder Ca? Prostate Ca? Previous Urologists? Solution Consultant Services: Solution Consultant Offered & Declined Allergies No Known Allergies [No Known Allergies*] Allergy (Verified 01/09/25 08:27) Medication List - Last Reconciled 01/09/25 by Sapphire Farley MD amlodipine 10 mg PO BEDTIME apixaban (Eliquis) 5 mg PO BID atorvastatin 20 mg PO BEDTIME benazepril 40 mg PO DAILY ceftriaxone 1 g IVPUSH Q24H compr.stocking,knee,long,small (T.E.D. Knee Ocdugs-B-Lfwt misc) As directed fluoxetine 20 mg PO BEDTIME furosemide 10 mg PO DAILY gabapentin 600 mg PO BEDTIME levothyroxine 200 mcg PO TURNER@0600 levothyroxine 100 mcg PO MOTUWETHFRSA@0600 metoprolol tartrate 12.5 mg (1/2 x 25 mg) PO BID omeprazole 20 mg PO BID@0630,1630 HPI Comments Details: History of Present Illness The patient is with her daughter Betty, who interprets for her. Shruthi is a 74-year-old female presenting for follow-up regarding a recent CT scan conducted to investigate symptoms experienced during an emergency room visit where she felt weak. A CT Abd/pelvis scan revealed benign renal cysts, a stable adrenal nodule, and mild renal scarring, with no acute findings necessitating intervention. The patient had a pacemaker placed during this hospitalization after presenting with cardiac arrhythmia. Her renal function was evaluated, showing BUN and creatinine within normal range, although chronic kidney disease stage 3 was noted in discharge paperwork and the daughter stated her concerns regarding this documentation, she is advised to fu with patient's primary regarding this. The urinary frequency that prompted the CT scan has resolved, with no current symptoms. Urinary Symptoms Review - No current urinary frequency or urgency. - Past episode of urinary frequency prior to pacemaker placement, now resolved. - Urine culture showed mixed bacteria, no significant findings. Review of Systems - Genitourinary: Reports prior urinary frequency (resolved) - Cardiovascular: Reports weakness, history of SVT managed with pacemaker placement Review of Systems Const All systems reviewed & are unremarkable except as noted in HPI and below Reports no additional complaints Eyes Reports no additional complaints ENT Reports no additional complaints Card Reports no additional complaints Resp Reports no additional complaints GI Reports no additional complaints Reports as per HPI Musc Reports no additional complaints Skin/Breast Reports system reviewed and no additional complaints, except as documented Neuro Reports no additional complaints Psych Reports no additional complaints Endo Reports no additional complaints Dennis/Lymph Reports no additional complaints Aller/Immun Reports no additional complaints Physical Exam General: Cooperative, healthy appearing and no acute distress Orientation and Consciousness: Patient oriented x3 Head: Yes normal to inspection, Yes normocephalic and Yes atraumatic Eyes: Conjunctivae normal Neck: Yes normal visual inspection and Yes trachea midline Chest: Normal inspection of the chest Respiratory: Normal respiratory effort GI: Normal to inspection Neuro: Patient oriented x3 Psych: Appearance grossly normal Results - Labs: BUN and creatinine levels within normal range on December 22, 2024. - Imaging: CT scan showing small benign renal cysts, stable adrenal nodule, mild bilateral renal scarring. 12/21/24--right adrenal gland are unremarkable. 2.5 x 2.2 cm left adrenal nodule, not significantly changed from [address] supporting incidental adenoma. Small bilateral renal cysts not requiring follow-up. Mild scarring both kidneys greater to the left. No stones or hydronephrosis. [facility] Medical History Vitamin D deficiency Severe cervical dysplasia, histologically confirmed Neuropathy CKD (chronic kidney disease) Renal lesion Lactose intolerance Hypothyroidism CHF exacerbation Vertebral compression fracture Essential hypertension Non-rheumatic aortic stenosis Chronic diastolic (congestive) heart failure Surgical History History of breast biopsy History of hysterectomy Family History Father Dementia Mother Hypertension Alzheimer disease Social History Household Members: Family Housing: Condominium Do you presently have visiting nurse or other home services: No Alcohol intake: never Patient Tobacco Use Status: Former Tobacco user service: No Office Procedures Post Void Residual Post Residual Void Post Void Residual (PVR): 0 [id number] Void Residual by ultrasound Results AMB Urinalysis, Automated UA Leukoctes 15 Gasper/uL Last Edit by Teresa Cardenas MA on 01/09/25 09:05 UA Nitrite Negative Last Edit by Teresa Cardenas MA on 01/09/25 09:05 UA Urobilinogen 0.2 mg/dL Last Edit by Teresa Cardenas MA on 01/09/25 09:05 UA Protein 15 mg/dL Last Edit by Teresa Cardenas MA on 01/09/25 09:05 UA pH 6.0 Last Edit by Teresa Cardenas MA on 01/09/25 09:05 UA Blood 0 Aidan/uL Last Edit by Teresa Cardenas MA on 01/09/25 09:05 UA Specific [place] 1.015 Last Edit by Teresa Cardenas MA on 01/09/25 09:05 UA Ketone Negative Last Edit by Teresa Cardenas MA on 01/09/25 09:05 UA Bilirubin 0 mg/dL Last Edit by Teresa Cardenas MA on 01/09/25 09:05 UA Glucose 0 mg/dL Last Edit by Teresa Cardenas MA on 01/09/25 09:05 Results Reviewed Results Reviewed: Laboratory Last Values Urine pH (Auto) 6.0 01/09/25 09:01 Specific [place] (Auto) 1.015 01/09/25 09:01 Urine Protein (Auto) 15 mg/dL 01/09/25 09:01 Glucose (UA)(Auto) 0 mg/dL 01/09/25 09:01 Urine Ketones (Auto) Negative 01/09/25 09:01 Urine Blood (Auto) 0 Aidan/uL 01/09/25 09:01 Urine Nitrite (Auto) Negative 01/09/25 09:01 Urine Bilirubin (Auto) 0 mg/dL 01/09/25 09:01 Urine Urobilinogen (Auto) 0.2 mg/dL 01/09/25 09:01 Leukocyte Esterase (Auto) 15 Gasper/uL 01/09/25 09:01 Date of Service: 12/21/24 CLINICAL HISTORY: abd discomfot CT abdomen and pelvis with contrast Comparison: CT/UT/SR - CT ANGIO CHEST AORTA - 09/25/24 12:[address]/UT/SR - ABD PELV W IV CON ONLY [id number] - 01/11/17 17:38 EST Findings: Mosaic lung attenuation in the lung bases suggesting small airway disease similar to prior. Mild cardiomegaly. No pericardial effusion. Liver, gallbladder, biliary tree, pancreas, spleen and right adrenal gland are unremarkable. 2.5 x 2.2 cm left adrenal nodule, not significantly changed from [address] supporting incidental adenoma. Small bilateral renal cysts not requiring follow-up. Mild scarring both kidneys greater to the left. No stones or hydronephrosis. No bowel obstruction or acute perienteric inflammation. No diverticulitis. Normal appendix. 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 No pathologically enlarged nodes. Normal caliber aorta. Moderate plaque. No stenosis or dissection. Patent renal arteries, celiac trunk and SMA. Patent DEVENDRA. Patent hepatic veins, IVC and portal vein. Small bilateral ovarian cysts smaller than on 2017 study without adverse change. Otherwise pelvic viscera and urinary bladder intact. No acute or aggressive appearing bone lesion. Impression: No acute process evident. Multiple chronic changes as detailed. Assessment & Plan Assessment & Plan (1) Bilateral renal cysts: Code(s): N28.1 - Cyst of kidney, acquired Category: Medical (2) Urinary frequency: Code(s): R35.0 - Frequency of micturition Category: Medical Plan Plan The recent CT imaging, which identified small benign renal cysts and a stable adrenal nodule, requires no further acute intervention. These stable findings signify no change from 2017, and the mild renal scarring is chronic. The patient should continue cardiology follow-up for her CAD and pacemaker placement. Monito ring of stage 3 chronic kidney disease will be coordinated by her primary care physician, with nephrology referral as deemed appropriate. The resolved urinary frequency indicates no further urological issues at this time. Orders: Orders AMB Urinalysis Automated Today Z13.9 - Encounter for screening, unspecified AMB Post Void Residual by ultrasound Today R35.0 - Frequency of micturition Patient Instructions: Patient Instructions - Maintain follow-up appointments with cardiology for arrhythmia and pacemaker. - Discuss chronic kidney disease management with primary care provider. - Monitor for any return of urinary symptoms and seek care if they recur. - No immediate need for further urological intervention unless new symptoms arise. The patient had an opportunity to ask questions regarding treatment plan. The patient expressed understanding and agreement with the above treatment plan. The patient is aware they should contact our office by phone for worsening of their current condition or the appearance of new symptoms. Compliance is encouraged with any medications and followup testing that is ordered. It is a privilege to be allowed the opportunity to participate in the urologic care of your patient. If you have any questions or concerns regarding treatment for the above conditions please do not hesitate to contact me. The office telephone contact is [phone]. This note is constructed in part using voice recognition software. While every effort has been made to ensure accuracy safety security officer errors may have been included. Yours sincerely, Sapphire Farley MD Scribe Plan - Not visible on output: Patient was informed and verbally consented to the use of an ambient scribe for clinic note documentation during this visit. Coding Level of Care Code New Pt Level 4 (19656) Diagnoses Bilateral renal cysts N28.1 Urinary frequency R35.0 CPT Codes Post Residual Void - PVR CPT Code: 14312-Hezy Void Residual by ultrasound ([id number])
--- NOTE | 2025-01-09 08:26 | MHC.OFFVIS ---
Intake Visit Reasons: History of Renal Lesion/Urinary Frequency Intake Note: New Patient is present for renal lesion and urinary frequency Any Urology Meds: none Antibiotic Allergies:nka Blood Thinners: Eliquis Family History: Bladder Ca? Prostate Ca? Previous Urologists? Financial Services Sales Representative Required: Yes Financial Services Sales Representative Services: Financial Services Sales Representative Offered & Declined Allergies No Known Allergies [No Known Allergies*] Allergy (Verified 01/09/25 08:27) PFSH Medical History Vitamin D deficiency Severe cervical dysplasia, histologically confirmed Neuropathy CKD (chronic kidney disease) Renal lesion Lactose intolerance Hypothyroidism CHF exacerbation Vertebral compression fracture Essential hypertension Non-rheumatic aortic stenosis Chronic diastolic (congestive) heart failure Surgical History History of breast biopsy History of hysterectomy Family History Father Dementia Mother Hypertension Alzheimer disease Social History Household Members: Family Housing: Condominium Do you presently have visiting nurse or other home services: No Alcohol intake: never Patient Tobacco Use Status: Former Tobacco user service: No Assessment & Plan Assessment & Plan Orders: Orders AMB Post Void Residual by ultrasound Today R35.0 - Frequency of micturition Coding
== END 2025-01-09 08:48 | disposition home or self-care (01) ==
PROVIDERS: PCP Internal Medicine; Visit Provider Urology
DX: N28.1 Cyst of kidney, acquired (principal); R35.0 Frequency of micturition; Z13.9 Encounter for screening, unspecified
CPT/HCPCS: 99204

== ENCOUNTER → 2025-01-09 08:03 | Outpatient (BNVA) | payer MEDICARE, SELFPAY | PROVIDERS: PCP Internal Medicine; Visit Provider Urology | DX: N28.1 Cyst of kidney, acquired (principal); R35.0 Frequency of micturition | CPT/HCPCS: 51798; 81003; 99202 ==

== ENCOUNTER → 2025-01-13 23:59 | Outpatient (BNV) | payer MEDICARE, SELFPAY ==
--- NOTE | 2025-01-13 14:51 | A.OFFVIS_ITS ---
Intake Visit Reasons: Remote ICD check-medtronic Allergies No Known Allergies [No Known Allergies*] Allergy (Verified 01/09/25 08:27) PFSH Medical History Vitamin D deficiency Severe cervical dysplasia, histologically confirmed Neuropathy CKD (chronic kidney disease) Renal lesion Lactose intolerance Hypothyroidism CHF exacerbation Vertebral compression fracture Essential hypertension Non-rheumatic aortic stenosis Chronic diastolic (congestive) heart failure Surgical History History of breast biopsy History of hysterectomy Family History Father Dementia Mother Hypertension Alzheimer disease Social History Household Members: Family Housing: Condominium Do you presently have visiting nurse or other home services: No Alcohol intake: never Patient Tobacco Use Status: Former Tobacco user service: No Office Procedures Cardiac Device Check Cardiac Device Check Details: Date of service- 01/13/2025 ; Battery life >12 years; normal lead parameters; AP 72%; FOOD INSPECTOR 0.2%; AT/AF burden 6.8%. Overall normal device function. [id number] Cardiac Device Interrogation, pacemaker Procedure code (CPT) selection complete Assessment & Plan Assessment & Plan (1) Pacemaker: Code(s): Z95.0 - Presence of cardiac pacemaker Category: Medical (2) Tachy-jeri syndrome: Code(s): I49.5 - Sick sinus syndrome Category: Medical Plan x Coding Level of Care Code Procedure Only Diagnoses Pacemaker Z95.0 Tachy-jeri syndrome I49.5 CPT Codes Cardiac Device Check - Cardiac Device 12: [id number] Cardiac Device Interrogation, pacemaker ([id number])
== END ==
PROVIDERS: PCP Internal Medicine; Visit Provider Internal Medicine
DX: I49.5 Sick sinus syndrome (principal); Z95.0 Presence of cardiac pacemaker
CPT/HCPCS: 93294

== ENCOUNTER 2025-02-24 14:52 | Outpatient (AMB) | payer MEDICARE, SELFPAY ==
[2025-02-24 15:10] VITALS: BP 120/76; PULSE 60; BMI 36.5
--- NOTE | 2025-02-24 15:10 | A.OFFVIS_ITS ---
Vital Signs 02/24/25 15:10 Height 5 ft 1 in Weight 193 lb 1.999 oz BMI 36.5 BP 120/76 Blood Pressure Location Lt brachial Position Sitting Pulse 60 Intake Visit Reasons: F/U w/ device check Intake Note: Follow-up after Medtronic check c/o more fatigue Advanced Practice Nurse Psychotherapist Required: Yes Advanced Practice Nurse Psychotherapist Services: Advanced Practice Nurse Psychotherapist Offered & Declined Dual Rate Supervisor: Dual Rate Supervisor Present Accompanied by: Daughter Allergies No Known Allergies [No Known Allergies*] Allergy (Verified 01/09/25 08:27) Medication List - Last Reconciled 02/24/25 by Geovany Dong MD amlodipine 10 mg PO BEDTIME apixaban (Eliquis) 5 mg PO BID atorvastatin 20 mg PO BEDTIME benazepril 40 mg PO DAILY ceftriaxone 1 g IVPUSH Q24H compr.stocking,knee,long,small (T.E.D. Knee Fpzuve-[id number] misc) As directed fluoxetine 20 mg PO BEDTIME furosemide 10 mg PO DAILY gabapentin 600 mg PO BEDTIME levothyroxine 200 mcg PO TURNER@0600 levothyroxine 100 mcg PO MOTUWETHFRSA@0600 metoprolol tartrate 75 mg PO BID omeprazole 20 mg PO BID@0630,1630 HPI Comments Details: Kaylee returns for follow-up. She carries a diagnosis of chronic diastolic heart failure as well as aortic stenosis. In December of 2024, she was admitted to the hospital and it seems that she was having tachy/Peter syndrome. The tachycardia rhythm was thought to be rather SVT but there is also mention of atrial fibrillation with rapid rate. Then she was transferred to [facility]. Saw EP and she underwent pacemaker implantation. After that, generally been doing okay. Her main symptoms rather tiredness and fatigue. No angina or shortness of breath or palpitations. [facility] Medical History Vitamin D deficiency Severe cervical dysplasia, histologically confirmed Neuropathy CKD (chronic kidney disease) Renal lesion Lactose intolerance Hypothyroidism CHF exacerbation Vertebral compression fracture Essential hypertension Non-rheumatic aortic stenosis Chronic diastolic (congestive) heart failure Surgical History History of breast biopsy History of hysterectomy Family History Father Dementia Mother Hypertension Alzheimer disease Social History Household Members: Family Housing: Condominium Do you presently have visiting nurse or other home services: No Alcohol intake: never Patient Tobacco Use Status: Former Tobacco user service: No Review of Systems Const Denies chills, Denies fatigue, Denies fever(s), Denies frequent falls, Denies weakness, Denies weight gain and Denies weight loss ENT Denies dizziness Card Denies chest pain, Denies leg edema, Denies lightheadedness, Denies palpitations, Denies dyspnea, Denies dyspnea on exertion, Denies orthopnea and Denies other (loss of consciousness) Resp Denies cough, Denies dyspnea and Denies dyspnea on exertion GI Denies hematochezia and Denies change in stool character Musc Denies abnormal gait, Denies muscle weakness, Denies numbness, Denies radiating pain into limb and Denies tingling Neuro Denies abnormal gait, Denies dizziness, Denies frequent falls, Denies numbness, Denies tingling and Denies weakness Endo Denies fatigue and Denies palpitations Physical Exam Vital Signs: Last Vital Signs Pulse 60 02/24/25 15:10 BP 120/76 02/24/25 15:10 BMI result Body Mass Index 36.5 Const General: comfortable and no acute distress Orientation/consciousness: patient oriented x3 HEENT Other: Unremarkable Head: Yes normal to inspection Neck Neck: Yes normal visual inspection Chest Chest palpation & inspection: normal inspection of the chest Resp Other: Left lower lung crackles Cardio Palpation: normal PMI Heart sounds: S1 normal heart sound present, S2 normal heart sound present, no gallops, Murmur heart sound present systolic II/ and at the right sternal border and no rubs GI Palpation (GI): Soft to palpation Back/Spine/Pelvis Other: unremarkable Skin General skin exam: no rashes or lesions noted Neuro General: patient oriented x3 Extrem General: Yes normal to inspection Psych Mental Status: mental status grossly normal Office Procedures Cardiac Device Check Cardiac Device Check Details: Pacemaker interrogated today. Dual-chamber device, programmed AAI/DDD. Battery status more than 11 years. Normal lead parameters. AT/AF episodes,? AF/RVR. Overall burden 6.7%. Normal device function. [id number] Cardiac Device Check, pacemaker dual lead Procedure code (CPT) selection complete Assessment & Plan Assessment & Plan (1) Paroxysmal atrial fibrillation: Code(s): I48.0 - Paroxysmal atrial fibrillation Category: Medical Plan: She still gets intermittent tachycardia episodes. For the time being, continue beta-blockers. Continue anticoagulation. We can refer her to EP for ablation. (2) SVT (supraventricular tachycardia): Code(s): I47.10 - Supraventricular tachycardia, unspecified Category: Medical Plan: Unclear if she also has concurrent NSVT episodes. Again EP study should be of help. Management same as above-on beta-blockers. (3) Chronic diastolic (congestive) heart failure: Code(s): I50.32 - Chronic diastolic (congestive) heart failure Category: Medical Plan: Minimal volume overload. Continue diuretics. May take an additional dose as necessary. (4) Non-rheumatic aortic stenosis: Code(s): I35.0 - Nonrheumatic aortic (valve) stenosis Category: Medical Plan: Mild aortic stenosis on echocardiogram. Monitor clinically and by echo. (5) Essential hypertension: Code(s): I10 - Essential (primary) hypertension Category: Medical Plan: Stable. (6) Tachy-peter syndrome: Code(s): I49.5 - Sick sinus syndrome Category: Medical Plan: Status post pacemaker as above. Plan During today's consultation, we extensively discussed the patient's ongoing episodes of supraventricular tachycardia and symptomatic fatigue, emphasizing the potential utilization of catheter ablation as a solution to localized arrhythmia sources. I explained the procedure, including its invasive nature, potential benefits of reducing reliance on extensive pharmacotherapy, and decreasing the risk of adverse cardiac events. The patient has been informed of the necessity for an electrophysiological study as a prior step, in addition to the continued monitoring through her current pacemaker. The relative risks and benefits were shared, with the patient indicating agreement to proceed with the proposed evaluation. Patient was informed and verbally consented to the use of an ambient scribe for clinic note documentation during this visit. Plan discussed with daughter. Orders: Referrals Cardiac Electrophysiology Referral Geovany Dong MD I47.10 - Supraventricular tachycardia, unspecified, I48.0 - Paroxysmal atrial fibrillation Medications: Changed From metoprolol tartrate 50 mg PO BID 90 tabs 2RF To metoprolol tartrate 75 mg PO BID Jose Miguel Sam NP From ceftriaxone 1 g IVPUSH Q24H 1 ea 0RF To ceftriaxone 1 g IVPUSH Q24H Rosalind Brooks MD Patient Instructions: - Continue current medication, including metoprolol and furosemide, until furt her notice. - Monitor blood pressure regularly and note any significant changes. - Be aware of signs of increased fatigue and lethargy. - Await scheduling for the electrophysiology consultation to discuss the potential for catheter ablation. - Report any episodes of prolonged tachycardia or significant edema promptly. - Follow up for reassessment in three to four months or sooner if symptoms worse n. Coding Level of Care Code Est Pt Level 4 (87119) Complex EM visit Add On G2211 Diagnoses Paroxysmal atrial fibrillation I48.0 SVT (supraventricular tachycardia) I47.10 Chronic diastolic (congestive) heart failure I50.32 Non-rheumatic aortic stenosis I35.0 Essential hypertension I10 Tachy-peter syndrome I49.5 CPT Codes Cardiac Device Check - Cardiac Device 2: [id number] Cardiac Device Check, pacemaker dual lead ([id number])
--- OUTSIDE RECORDS SUMMARY | 2025-02-24 17:25 | XMS_ITS | Clinical Summary ---
Author Organization [facility] [address] [place] [address] [place] [phone] Phone Care Team Providers Care Automatic Packer Operator Name Role Phone Ilia Cates MD Primary Care Provider [phone] Allergies No known active allergies Medications levothyroxine (SYNTHROID, LEVOTHROID) 100 mcg tablet Take 1 Tablet by mouth daily. And 2 tabs on monday 4 Active allopurinoL (ZYLOPRIM) 100 mg tablet Take 1 Tablet by mouth daily. 4 Active atenoloL (TENORMIN) 50 mg tablet Take 1 tablet (50 mg total) by mouth 1 (one) time each day. 4 Active gabapentin (NEURONTIN) 300 mg capsule Take 1 Capsule by mouth 3 times daily. 4 Active furosemide (LASIX) 20 mg tablet Take 0.5 Tablets by mouth daily. 3 Active fluticasone propionate (FLONASE) 50 mcg/actuation nasal spray SPRAY EACH NOSTRIL DAILY 3 Active loratadine (CLARITIN) 10 mg tablet Take 1 Tablet by mouth daily for 360 days. 2 Active benazepriL (LOTENSIN) 40 mg tablet Take 1 tablet (40 mg total) by mouth 1 (one) time each day. 90 tablet 1 5 Active FLUoxetine (PROzac) 20 mg capsule TAKE 1 CAPSULE BY MOUTH DAILY. 90 capsule 1 4 Active Vitamin D2 1,250 mcg (50,000 unit) capsule TAKE 1 CAPSULE BY MOUTH ONCE A WEEK. 12 capsule 1 4 Active atenoloL (TENORMIN) 25 mg tablet Take by mouth 1 (one) time each day. Active amLODIPine (NORVASC) 10 mg tablet Take 1 tablet (10 mg total) by mouth 1 (one) time each day. at bedtime. 90 tablet 1 5 Active atorvastatin (LIPITOR) 20 mg tablet Take 1 tablet (20 mg total) by mouth at bedtime. 90 tablet 1 5 Active omeprazole (PriLOSEC) [address] capsule Take 1 capsule (20 mg total) by mouth 2 (two) times a day. Do not crush or chew. 180 capsule 1 5 08/06/20 25 Active atorvastatin (LIPITOR) 20 mg tablet TAKE ONE (1) TABLET BY MOUTH EVERY NIGHT AT BEDTIME 90 tablet 1 4 02/04/20 25 Discontinu ed(Reorder ) omeprazole (PriLOSEC) [address] capsule TAKE 1 CAPSULE (20 MG TOTAL) BY MOUTH 2 (TWO) TIMES A DAY. DO NOT CRUSH OR CHEW. 90 capsule 1 4 02/05/20 25 Discontinu ed(Reorder ) Active Problems Problem Noted Date Diagnosed Date Severe obesity (BMI 35.0-39. 9) with comorbidity ([facility] V24, [facility] V28) 05/30/2024 Vitamin D deficiency 04/20/2022 Congestive heart failure due to high blood pressure ([facility] V24, [facility] V28) 02/21/2020 Overview (08/15/2024): Follows with [facility]. Diastolic congestive heart failure Aortic valve stenosis 11/26/2019 Neuropathy 05/23/2019 Adrenal mass, left ([facility] V24) 12/22/2017 Overview (08/15/2024): Stable 2 cm adrenal mass on CT of 06/15/2017 CKD (chronic kidney disease) stage 3, GFR 30-59 ml/min ([facility] V24, [facility] V28) 07/03/2014 Severe cervical dysplasia, histologically confir med 06/28/2013 Overview (08/15/2024): Positive 2012, 2013 and 2015, colposcopy = JOZEF 2. Cone biopsy JOZEF 3. Radial margin positive. Additional endocervical specimen shows no dysplasia Hyperlipemia 09/25/2012 Hypertension 09/25/2012 Hypothyroid 01/02/2012 Immunizations Name Administration Dates Next Due Influenza [...] Date Site/Laterality Comments OTHER SURGICAL HISTORY PROCEDURE: RI PUNCTURE ASPIRATION CYST BREAST EACH ADDL CYST TUBAL LIGATION PROCEDURE: HISTORICAL TUBAL LIGATION COLONOSCOPY 01/2007 PROCEDURE: RI COLONOSCOPY STOMA DX INCLUDING COLLJ SPEC SPX OTHER SURGICAL HISTORY 11/19/13 PROCEDURE: COLON CA SCRN NOT HI RSK IND; COMMENT: normal; repeat in ten yrs CERVICAL BIOPSY W/ LOOP ELECTRODE EXCISION 09/08/16 PROCEDURE: HISTORICAL CONE BIOPSY; COMMENT: for JOZEF 2 BREAST SURGERY Left PROCEDURE: RI UNLISTED PROCEDURE BREAST; COMMENT: removed lump BREAST [...] 1:00 PM EDT Office Visit Adult Medicine [address] [phone] Fito Aguilar PA [address] [place] [phone] 06/05/2025 2:10 PM EDT Appointment Radiology Department - [address] [phone] Health Maintenance Due Date Last Done Comments Zoster Vaccines (2 of 3) 08/01/2017 06/06/2017 Colorectal Cancer Screening: Colonoscopy 10/22/2022 Depression Screening 10/22/2022 Falls Risk Assessment 10/22/2022 Medicare Annual Wellness Visit 10/22/2022 Social Influencers of Health Screening 10/22/2022 RSV Immunization Adult Patients (1 - 1-dose 75+ series) 2024 COVID-19 Vaccine ( season) 2024 08/23/2021, 01/09/2021, 12/19/2020 Hypertension/CHF/CAD Annual BMP Blood Test 06/10/2025 06/10/2024, 06/10/2024 Influenza Vaccine (Season Ended) 2025 08/20/2014, 08/29/2013, 08/13/2012 Cholesterol Screening (Lipid Panel) 06/10/2029 06/10/2024, 06/10/2024 [...] age to complete this topic Meningococcal B Vaccine Aged Out No l onger eligible based on patient's age to complete this topic RSV Immunization Patients Under 20 months Aged Out No longer eligible based on patient's age to complete this topic Varicella Vaccines Aged Out No longer eligible based on patient's age to complete this topic Procedures Procedure Name Priority Date/Time Associated Diagnosis Comments EXTERNAL CT REPORT 12/21/2024 BD BONE DENSITY DXA AXIAL SKELETON Routine [...] JULES CT PROCEDURES Final Resul t * BD Bone Density DXA Axial Skeleton (10/18/2024 3:14 PM EST) Anatomical Region Laterality Modality Wrist, Hip, L-spine Bone Densito metry 10/18/2024 4:12 PM EST Impressions 10/18/2024 4:14 PM EST Osteopenia by WHO criteria. This patient has a 9.5% risk of major osteoporotic fracture and a 1.7% risk of hip fracture over the next 10 years. (World Health Organization Fracture Risk Assessment) [facility] Department of Internal Medicine recommends using National [...] alternative screening schedule based on fahad Chery., [facility] December 01, 2011 for patients with osteopenia [...] Signed Date: 10/18/2024 16:14 ET Workstation ID: [id number] Transcribed By: Self Edit Transcribed Date: 10/18/2024 [...] (World Health Organization Fracture Risk Assessment) [facility] Department of Internal Medicine recommendsusing National Osteoporosis [...] alternative screening schedule based on fahad Chery., [facility] for patients with osteopenia (based on [...] Signed Date: 10/18/2024 16:14 ET Workstation ID: [id number] Transcribed By: Self Edit Transcribed Date: 10/18/2024 16:12 ET Result [facility] Ilia Cates MD IMG DXA PROCEDURES Final Result * Annual BMP Blood Test (06/10/2024) Pathologist [facility] Annual BMP Blood Test Abstracted Result [facility] Historical Provider HEALTH MAINTENANCE Final Result * (ABNORMAL) Lipid panel (06/10/2024) Pathologist [facility] LDL/HDL Ratio 5(A) 0 - 4 Triglycerides 245(A) 0 - 150 mg/dL Cholesterol 191 0 - 200 mg/dL HDL 42 >=40 mg/dL LDL Cholesterol 100 0 - 100 mg/dL Blood Venous blood specimen / Unknown Result [facility] Historical Provider LAB BLOOD ORDERABLES Carly l [...] [employer] [place] [employer] Care Teams Automatic Packer Operator Relationship Specialty Start Date End Date Ilia Cates MD [address] [place] [phone] PCP - General Internal Medicine 12/23/15
== END 2025-02-24 15:51 | disposition home or self-care (01) ==
LOC: HO.HCS 14:52
PROVIDERS: PCP Internal Medicine; Visit Provider Internal Medicine
DX: I48.0 Paroxysmal atrial fibrillation (principal); I47.10 Supraventricular tachycardia, unspecified; I50.32 Chronic diastolic (congestive) heart failure; I35.0 Nonrheumatic aortic (valve) stenosis; I10 Essential (primary) hypertension; I49.5 Sick sinus syndrome
CPT/HCPCS: 93280; 99214; G2211

== ENCOUNTER → 2025-02-24 14:52 | Outpatient (BNVA) | payer MEDICARE, SELFPAY | PROVIDERS: PCP Internal Medicine; Visit Provider Internal Medicine | DX: Z45.018 Encounter for adjustment and management of other part of cardiac pacemaker (principal); I48.0 Paroxysmal atrial fibrillation; I47.10 Supraventricular tachycardia, unspecified; I11.0 Hypertensive heart disease with heart failure; I50.32 Chronic diastolic (congestive) heart failure; I35.0 Nonrheumatic aortic (valve) stenosis; I49.5 Sick sinus syndrome | CPT/HCPCS: 93280; 99212 ==